=== PATIENT | male | born 1970 | race Caucasian/White ===

== ENCOUNTER 2019-02-25 15:53 | Emergency (ER) | payer OTHER ==
[~2019-02-25] VITALS: Ht 139.7 cm; Wt 104.3 kg
[~2019-02-25 15:53] MED LIST: CYCLOBENZAPRINE5 MG PO; LYRICA75 MG PO; NAPROSYN500 MG PO; TRIAMTERENE-HCTZ1 EA PO
--- OUTSIDE RECORDS SUMMARY | 2019-02-25 15:57 | XMS REPORT ---
Author Author [facility] Address Unknown Phone Unavailable Care Team Providers Care Director Property Name Role Phone Unavailable Unavailable Payers Payer Name Policy Type Policy Number Effective Date Expiration Date Problems This patient has no known problems. Allergies, Adverse Reactions, Alerts Allergy Name Allergy Type Status Severity Reaction(s) Onset Date Inactive Date Treating Clinician Comments No Known Allergies DA Active U 2019-01-25 00:00:00 No Known Allergies DA Active U 2018-10-08 00:00:00 No Known Allergies DA Active U 2018-04-19 00:00:00 No Known Allergies DA Active U 2018-01-21 00:00:00 No Known Allergies DA Active U 2017-09-16 00:00:00 Medications This patient has no known medications. Results Test Description Test Time Test Comments Text Results Atomic Results Result Comments SURGICAL SPECIMENS 2019-02-02 07:51:00 RUN DATE: 02/02/19 [facility] *LIVE* PAGE 1 RUN TIME: 750 Specimen Inquiry RUN USER: INTERFACE PATIENT: SEBAS LUNA LOC: GURU U #: [id number] AGE/SX: 48/M ROOM: [facility] RE01/25/19REG DR: Nacho Feng MD : 71 BED: 1 DIS: STATUS: ADM IN TLOC: SPEC #: [id number] RECD: 01/28/19 STATUS: ROSA NASSAR #: [id number] ODALYS: 01/28/[address] [facility] [address]: Nacho Feng MD ENTERED: 02/01/19 SP TYPE: SURG SPEC OTHR DR: Self Referred Kemar Soni MD, Mallika MD Reyes, Jose R Jr MD Reyhani, Sean A DPM Rosenblatt, Michael MDORDERED: GM LEVEL 4 CODES: [id number] - EXTREMITY, NOS COPIES TO: Self Referred Kemar Soni MD [address] [facility] [address] [place] [address] Debra Haider MD [address] [facility] [place] [address] Kyaw Cruz Jr, MD [address] [facility] [place], [place] [address] Dieter Jeffery [facility] [address] [facility], [address] [address] [email or web address] Stevie Wood MD [address] [place] [address] Nacho Feng MD [address] [place] [address] CONTINUED ON NEXT PAGE RUN DATE: 02/02/19 [facility] *LIVE* PAGE 2 RUN TIME: 0751 Specimen Inquiry RUN USER: INTERFACE SPEC #: [id number] PATIENT: SEBAS LUNA #[id number] (Continued)------ PROCEDURES: GM LEVEL 4 (Incomplete) TISSUES: 1. EXTREMITY, NOS - Extremity, left below knee, amputation FINAL DIAGNOSIS Extremity, left below knee, amputation: Ulceration with necrosis, mixed inflammation; atherosclerotic changes; margins appear viable. GROSS AND MICROSCOPIC GROSS EXAMINATION: Received fresh labeled left below the knee amputation is a 4 cm above the ankle amputation of the left foot. The foot measures 15 x 10 x 10 cm. The lateral and medial portions of the foot shows ulceration, the entire foot is swollen with thickened indurated skin. 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 MICROSCOPIC EXAMINATION: Sections of the amputated lower leg and foot reveal areas of necrosis with ulceration of the skin. The vessels show atherosclerotic changes. The skin and soft tissue at the margin appears viable. There is hyperkeratosis of the squamous epithelium. No acute inflammation is identified within the bone marrow at the margin. POST-OP DIAGNOSIS Osteomyelitis PRE-OP DIAGNOSIS Osteomyelitis- Signed SIGNATURE ON FILE Timmy Gomes Shaina MOREL 02/02/19 0751 END OF REPORT AG HEPATITIS B SURFACE 2019-01-29 11:09:00 AG HEPATITIS B SURFACE (test code=HBSAG) NON REACTIVE INDEX NonReactive AB HEPATITIS B [id number] 08:10:00* Test Item Value Reference Range Comments AB HEPATITIS B SURFACE (test code=HBSAB) < 3.1 mIU/mL Immunity>9.9 Status of Immunity Anti-HBs Level Inconsistent with Immunity 0.0 - 9.9Consistent with Immunity >9.9Performed At: [facility] [address] [place], [place] [id number] Jcarlos Marcum MD Ph:[phone] AB HEPATITIS [id number] 08:10:00* Test Item Value Reference Range Comments AB HEPATITIS C (test code=HCVAB) NON REACTIVE INDEX NON REACT. AB HIV 1 08:10:00* Test Item Value Reference Range Comments AB HIV 1 2 (test code=PXM89FE) NONREACTIVE INDEX NONREACTIVE BASIC METABOLIC [id number] 07:33:00* Test Item Value Reference Range Comments SODIUM (test code=NA) 140 mEq/L 134-147 POTASSIUM (test code=K) 3.8 mEq/L 3.4-5.0 CHLORIDE (test code=CL) 105 mEq/L 100-108 CARBON DIOXIDE (test code=CO2) 30 mEq/L 21-33 ANION GAP (test code=GAP) 9 0-20 GLUCOSE (test code=GLU) 95 mg/dL 70-110 BLOOD UREA NITROGEN (test code=BUN) 18 mg/dL 7-18 GLOMERULAR FILTRATION RATE (test code=GFR) 144.4 95-105 Units of measure=ml/min/1.73 m2 CREATININE (test code=CREAT) 0.6 mg/dL 0.6-1.3 CALCIUM (test code=CA) 8.5 mg/dL 8.0-10.5 CBC W/AUTO [id number] 07:19:00* Test Item Value Reference Range Comments WHITE BLOOD CELL (test code=WBC) 8.80 x10 3/uL 4.5-11.0 RED BLOOD CELL (test code=RBC) 3.56 x10 6/uL 4.00-5.60 HEMOGLOBIN (test code=HGB) 9.1 g/dL 12.5-16.9 HEMATOCRIT (test code=HCT) 30.6 % 37.5-50.7 MEAN CELL VOLUME (test code=MCV) 86.0 fL 81.0-99.0 MEAN CELL HGB (test code=MCH) 25.6 pg 27.0-33.0 MEAN CELL HGB CONCETRATION (test code=MCHC) 29.7 g/dL 33.0-37.0 RED CELL DISTRIBUTION WIDTH CV (test code=RDW) 15.6 % 11.5-14.5 RED CELL DISTRIBUTION WIDTH SD (test code=RDW-SD) 49.3 fL 37.0-54.0 PLATELET COUNT (test code=PLT) 234 x10 3/uL 150-400 MEAN PLATELET VOLUME (test code=MPV) 11.0 fL 7.0-9.0 NEUTROPHIL % (test code=NT%) 55.0 % 56.0-77.0 IMMATURE GRANULOCYTE % (test code=IG%) 0.2 % 0.0-2.0 LYMPHOCYTE % (test code=LY%) 27.7 % 14.0-32.0 MONOCYTE % (test code=MO%) 12.7 % 4.8-9.0 EOSINOPHIL % (test code=EO%) 3.8 % 0.3-3.7 BASOPHIL % (test code=BA%) 0.6 % 0.0-2.0 NUCLEATED RBC % (test code=NRBC%) 0.0 % 0-0 NEUTROPHIL # (test code=NT#) 4.84 x10 3/uL 2.0-7.6 IMMATURE GRANULOCYTE # (test code=IG#) 0.02 x10 3/uL 0.00-0.03 LYMPHOCYTE # (test code=LY#) 2.44 x10 3/uL 1.0-3.8 MONOCYTE # (test code=MO#) 1.12 x10 3/uL 0.1-0.8 EOSINOPHIL # (test code=EO#) 0.33 x10 3/uL 0.0-0.2 BASOPHIL # (test code=BA#) 0.05 x10 3/uL 0.0-0.2 NUCLEATED RBC # (test code=NRBC#) 0.00 x10 3/uL 0.0-0.1 MANUAL DIFF REQUIRED (test code=MDIFF) NO AB HEPATITIS B [id number] 20:19:00* Test Item Value Reference Range Comments AB HEPATITIS B SURFACE (test code=HBSAB) AB HEPATITIS [id number] 20:19:00* Test Item Value Reference Range Comments AB HEPATITIS C (test code=HCVAB) NON REACTIVE INDEX NON REACT. AB HIV 1 20:19:00* Test Item Value Reference Range Comments AB HIV 1 2 (test code=LMF17PW) NONREACTIVE INDEX NONREACTIVE AB HEPATITIS B [id number] 17:50:00* Test Item Value Reference Range Comments AB HEPATITIS B SURFACE (test code=HBSAB) AB HEPATITIS [id number] 17:50:00* Test Item Value Reference Range Comments AB HEPATITIS C (test code=HCVAB) NON REACTIVE INDEX NON REACT. AB HIV 1 17:50:00* Test Item Value Reference Range Comments AB HIV 1 2 (test code=ARO59YK) INDEX NONREACTIVE - XR CHEST 1 [id number] 17:26:00 FAX: Kemar Cordova MD [phone] [place]: St: ADM FAX: Nacho Perry MD [phone] Name: SEBAS LUNA [facility] : 1970 Age/S: 48/M [address] [place] [address] Unit #: [id number] Loc: G.[address] [place] [address] Phys: Kemar Soni MD Acct: [id number] Dis Date: Status: ADM IN PHONE #: [phone] Exam Date: 01/27/2019 1725 FAX #: [phone] Reason: line EXAMS: CPT CODE: [id number] XR CHEST 1 V 62068 EXAM: XR CHEST 1 VIEW DATE: 01/27/2019 4:28 PM : 1970; Age: 48 years y/o Male INDICATION: line COMPARISON: January 27, 2019 at 941 TECHNIQUE: AP chest. IMPRESSION: Lines, tubes and hardware: Right IJ line with tip overlying lower SVC. Heart, mediastinum and lungs: The heart size is normal for technique. The mediastinal contours are normal. Pulmonary vascularity is normal. Minimal right basilar atelectasis. SL: [id number] at 1726 Reported and signed by: Juan David Yap D.O. CC: Kemar Soni MD; Nacho Feng MD Technologist: RT Vik(R) Trnscrd Date/Time/By: 01/27/2019 (1725) : By: [email or web address] Orig Print D/T: S: 01/27/2019 (6461) PAGE 1 Signed Report - XR CHEST 1 [id number] 11:08:00 FAX: Kemar Cordova MD [phone] [place]: St: ADM FAX: Nacho Perry MD [phone] Name: SEBAS LUNA [facility] : 1970 Age/S: 48/M [address] [place] [address] Unit #: [id number] Loc: G.55[address] [facility] [place] [address] Phys: Kemar Soni MD Acct: [id number] Dis Date: Status: ADM IN PHONE #: [phone] Exam Date: 01/27/2019 1059 FAX #: [phone] Reason: MONING PROCEDURE EXAMS: CPT CODE: [id number] XR CHEST 1 V 27763 CHEST 1 VIEW: 01/27/2019 COMPARISON: October 11, 2018 CLINICAL HISTORY: MONING PROCEDURE, OSTEOMYELITIS FI NDINGS: The cardiovascular silhouette is normal in size. There is mild elevation of the right hemidiaphragm. Minor right basilar discoid a telectasis is present. Lungs are otherwise clear. No evidence of pneumothorax. IMPRESSION: Mildly elevated rig ht hemidiaphragm with mild right basilar discoid atelectasis. * * at 1108 Reported and signed by: Solitario Lechuga M.D. CC: Agnes Soni MD; Nacho Feng MD Technologist: RT Bob(R)R Trnscrd Date/Time/By: 01/27/2019 (11 08) : By: [email or web address] Orig Print D/T: S: 01/27/2019 (1111) PAGE 1 Signed Report - XR ANKLE 3 + V [id number] 08:33:00 FAX: Dieter Barba DPM [phone] [place]: St: ADM FAX: Nacho Perry MD [phone] Name: SEBAS LUNA [facility] : 1970 Age/S: 48/M [address] [place] [address] Unit #: [id number] Loc: G.55[address] [facility] [place] [address] Phys: Dieter Jeffery Acct: [id number] Dis Date: Status: ADM IN PHONE #: [phone] Exam Date: 01/26/20191952 FAX #: [phone] Reason: plan for surgery EXAMS: CPT CODE: [id number] XR ANKLE 3 + V LT [address]94 PROCEDURE: Right foot 3 views, left foot 2 views, left ankle 3 views INDICATION: Osteomyelitis COMPARISON: Left foot radiographs of 10/08/2018. MRI of 12/10/2018. FINDINGS: RIGH T: 3 views of the right foot were obtained. Positioning and technique are suboptimal. The soft tissues are diffusely edematous. No subcutaneous gas or radiopaque foreign material. Chronic deformity base of the fifth metata rsal which is subluxed laterally relative to the cuboid. The cortical shannon in of the articular surfaces is indistinct. Deformity of the caudal aspect of the distal cuboid with indistinct ossifications extending into the adj acent soft tissues. No other gross bone destructive changes. There are chr onic deformities of the mid and hindfoot. LEFT: 2 views of t he left foot were obtained. A lateral view is not available. Positioning a nd technique are limited. Soft tissues are diffusely edematous. Soft tissu e defect with overlying bandage material lateral foot and ankle. Plantar t issues not adequately assessed in this projection. Previous resection vers us resorption of the proximal fifth metatarsal. There are bone destructive changes of the fourth metatarsal at the tarsometatarsal junction. The adj acent cuboid is indistinct as well. There are chronic deformities of the m id foot with chronic deformity of the mid tarsal articulation and st randing indistinct margins. LEFT: 3 views of the left ankle were o btained. Positioning and technique are limited. Lateral view is not availa ble. The soft tissues are diffusely edematous. No subcutaneous gas. Large soft tissue defect in the lateral foot and ankle. Bone destructive changes of the mid tarsus redemonstrated. There are erosive changes in the ankle joint with indistinct bone destruction of the distal tibia and medial talu s. Less pronounced changes in the distal fibula and lateral talus. IMPRESSION: 1. RIGHT: Chronic deformities of the mid and hindf oot. Remodeling of the fifth tarsometatarsal junction with indistinct co rtical margins. Chronic active osteomyelitis not excluded. 2. LE FT: Large ulcer lateral foot and ankle. Radiographic findings compatible with osteomyelitis of the lateral tarsometatarsal junction. Chronic justice tructive changes in the mid tarsus with differential of chronic septic a rthritis and neuropathic joint. Findings compatible PAGE 1 Signed Report (CONTINUED) FAX: Dieter Barba DPM [phone] [place]: St: ADM FAX: Nacho Perry MD [phone] Name: SEBAS LUNA [place] : 1970 Age/S: 48/M [address] [place] [address] U nit #: [id number] Loc: [place] [address] Phys: Dieter Jeffery DPM Acct: [id number] Dis Date: Status: ADM IN P REMA #: [phone] Exam Date: 01/26/20191952 FA X #: [phone] Reason: plan for surgery EXAMS: CPT CODE: [id number] XR ANKLE 3 + V LT [address] <Continued> with septic arthritis with contiguous osteomyelitis in the ankle. SL: [id number] at 0833 Reported and signed by: Tray Quinones M.D. CC: Dieter Jeffery DPM; Nacho Feng MD Technologist: Suzette Paul, RT(R); Kyaw Winter RT(R) Trnorrd Date/Time/By: 01/27/2019 (0833) : By: ValerioKWL Orig Print D/T: S: (0837) PAGE 2 Signed Rep ort - XR FOOT 3 + V [id number] 08:33:00 FAX: Dieter Barba DPM [phone] [place]: St: ADM FAX: Nacho Perry MD [phone] Name: SEBAS LUNA : 1970 Age/S: 48/M [address] [place] [address] Unit #: [id number] Loc: [address] [address] Phys: Nacho Feng MD Acct: [id number] Dis Date: Status: ADM IN PHONE #: [phone] Exam Date: 01/26/20191952 FAX #: [phone] Reason: plan for surgery EXAMS: CPT CODE: [id number] XR FOOT 3 + [place] [address] PROCEDURE: Right foot 3 views, left foot 2 views, left ankle 3 views INDICATION: Osteomyelitis COMPARISON: Left foot radiographs of 10/08/2018. MRI of 12/10/2018. FINDINGS: RIGH T: 3 views of the right foot were obtained. Positioning and technique are suboptimal. The soft tissues are diffusely edematous. No subcutaneous gas or radiopaque foreign material. Chronic deformity base of the fifth metata rsal which is subluxed laterally relative to the cuboid. The cortical shannon in of the articular surfaces is indistinct. Deformity of the caudal aspect of the distal cuboid with indistinct ossifications extending into the adj acent soft tissues. No other gross bone destructive changes. There are chr onic deformities of the mid and hindfoot. LEFT: 2 views of t he left foot were obtained. A lateral view is not available. Positioning a nd technique are limited. Soft tissues are diffusely edematous. Soft tissu e defect with overlying bandage material lateral foot and ankle. Plantar t issues not adequately assessed in this projection. Previous resection vers us resorption of the proximal fifth metatarsal. There are bone destructive changes of the fourth metatarsal at the tarsometatarsal junction. The adj acent cuboid is indistinct as well. There are chronic deformities of the m id foot with chronic deformity of the mid tarsal articulation and st randing indistinct margins. LEFT: 3 views of the left ankle were o btained. Positioning and technique are limited. Lateral view is not availa ble. The soft tissues are diffusely edematous. No subcutaneous gas. Large soft tissue defect in the lateral foot and ankle. Bone destructive changes of the mid tarsus redemonstrated. There are erosive changes in the ankle joint with indistinct bone destruction of the distal tibia and medial talu s. Less pronounced changes in the distal fibula and lateral talus. IMPRESSION: 1. RIGHT: Chronic deformities of the mid and hindf oot. Remodeling of the fifth tarsometatarsal junction with indistinct co rtical margins. Chronic active osteomyelitis not excluded. 2. LE FT: Large ulcer lateral foot and ankle. Radiographic findings compatible with osteomyelitis of the lateral tarsometatarsal junction. Chronic justice tructive changes in the mid tarsus with differential of chronic septic a rthritis and neuropathic joint. Findings compatible PAGE 1 Signed Report (CONTINUED) FAX: Dieter Barba DPM [phone] [place]: St: ADM FAX: Nacho Perry MD Name: SEBAS LUNA [facility] : 1970 Age/S: 48/M [address] [place] [address] nit #: [id number] Loc: G.5511 [place] [address] Phys: Nacho Feng MD Acct: [id number] Dis Date: Status: ADM IN P REMA #: [phone] Exam Date: 01/26/20191952 FA X #: [phone] Reason: plan for surgery EXAMS: CPT CODE: [id number] XR FOOT 3 + [place] [address] <Continued> with septic arthritis with contiguous osteomyelitis in the ankle. SL: [id number] at 0833 Reported and signed by: Tray Quinones M.D. CC: Dieter Jeffery DPM; Nacho Feng MD Technologist: Suzette Paul RT(R); Kyaw Winter RT(R) Trnorrd Date/Time/By: 01/27/2019 (0833) : By: Rick Orig Print D/T: S: (0837) PAGE 2 Signed Rep ort PROTHROMBIN [id number] 05:12:00* Test Item Value Reference Range Comments PROTHROMBIN TIME PATIENT (test code=PTP) 13.2 SECONDS 9.3-12.9 INTERNATIONAL NORMAL RATIO (test code=INR) 1.2 0.8-1.2 TARGET INR BY INDICATION Indication INR1. Prophylaxis of venous thrombosis 2.0 - 3.0 (orthopedic surgery), Prophylaxis of venous thrombosis (other than high-risk surgery), Treatment of Deep Vein Thrombosis/Pulmonary Embolism, Prevention of systemic embolism - Tissue heart valves, Acute Myocardial Infarction (to prevent systemic embolism), Valvular heart disease, Atrial Fibrillation, Bileaflet mechanical valve in aortic position.2. Mechanical prosthetic valves (high risk), 2.5 - 3.5 Presence of Lupus Anticoagulant or Antiphospholipid Antibodies, Prevention of systemic embolism - Acute Myocardial Infarction (to prevent recurrent infarct). THROMBOPLASTIN TIME [id number] 05:12:00* Test Item Value Reference Range Comments THROMBOPLASTIN TIME PARTIAL (test code=PTT) 20.5 Seconds 25.0-39.5 Therapeutic Range: 50.4 - 88.3 Seconds Effective 07/27/2018 BASIC METABOLIC [id number] 21:51:00* Test Item Value Reference Range Comments SODIUM (test code=NA) 137 mEq/L 134-147 POTASSIUM (test code=K) 4.0 mEq/L 3.4-5.0 CHLORIDE (test code=CL) 104 mEq/L 100-108 CARBON DIOXIDE (test code=CO2) 29 mEq/L 21-33 ANION GAP (test code=GAP) 8 0-20 GLUCOSE (test code=GLU) 103 mg/dL 70-110 BLOOD UREA NITROGEN (test code=BUN) 24 mg/dL 7-18 GLOMERULAR FILTRATION RATE (test code=GFR) 120.9 95-105 Units of measure=ml/min/1.73 m2 CREATININE (test code=CREAT) 0.7 mg/dL 0.6-1.3 CALCIUM (test code=CA) 9.3 mg/dL 8.0-10.5 CBC W/AUTO [id number] 20:54:00* Test Item Value Reference Range Comments WHITE BLOOD CELL (test code=WBC) 9.44 x10 3/uL 4.5-11.0 RED BLOOD CELL (test code=RBC) 5.08 x10 6/uL 4.00-5.60 HEMOGLOBIN (test code=HGB) 13.1 g/dL 12.5-16.9 HEMATOCRIT (test code=HCT) 43.0 % 37.5-50.7 MEAN CELL VOLUME (test code=MCV) 84.6 fL 81.0-99.0 MEAN CELL HGB (test code=MCH) 25.8 pg 27.0-33.0 MEAN CELL HGB CONCETRATION (test code=MCHC) 30.5 g/dL 33.0-37.0 RED CELL DISTRIBUTION WIDTH CV (test code=RDW) 16.3 % 11.5-14.5 RED CELL DISTRIBUTION WIDTH SD (test code=RDW-SD) 50.0 fL 37.0-54.0 PLATELET COUNT (test code=PLT) 333 x10 3/uL 150-400 MEAN PLATELET VOLUME (test code=MPV) 11.1 fL 7.0-9.0 NEUTROPHIL % (test code=NT%) 60.4 % 56.0-77.0 IMMATURE GRANULOCYTE % (test code=IG%) 0.2 % 0.0-2.0 LYMPHOCYTE % (test code=LY%) 27.5 % 14.0-32.0 MONOCYTE % (test code=MO%) 7.1 % 4.8-9.0 EOSINOPHIL % (test code=EO%) 4.4 % 0.3-3.7 BASOPHIL % (test code=BA%) 0.4 % 0.0-2.0 NUCLEATED RBC % (test code=NRBC%) 0.0 % 0-0 NEUTROPHIL # (test code=NT#) 5.69 x10 3/uL 2.0-7.6 IMMATURE GRANULOCYTE # (test code=IG#) 0.02 x10 3/uL 0.00-0.03 LYMPHOCYTE # (test code=LY#) 2.60 x10 3/uL 1.0-3.8 MONOCYTE # (test code=MO#) 0.67 x10 3/uL 0.1-0.8 EOSINOPHIL # (test code=EO#) 0.42 x10 3/uL 0.0-0.2 BASOPHIL # (test code=BA#) 0.04 x10 3/uL 0.0-0.2 NUCLEATED RBC # (test code=NRBC#) 0.00 x10 3/uL 0.0-0.1 MANUAL DIFF REQUIRED (test code=MDIFF) NO - MRI LOW EXT W WO CONT [id number] 12:25:00 FAX: Eliu Carrera MD [phone] [place]: St: REG FAX: Hernando Nacho Feng MD [phone] Name: SEBAS LUNA [facility] : 1970 Age/S: 48/M [address] [place] [address] Unit #: [id number] Loc: [place] [address] Phys: Eliu Carrera MD Acct: [id number] Dis Date: Status: REG CLI PHONE #: [phone] Exam Date: 12/10/2018 0859 FAX #: [phone] Reason: LEFT FOOT OSTEOMYULITIS EXAMS: CPT CODE: [id number] [place] [address] Patient: SEBAS LUNA. : 1970; Age: 48 years; nder: Male. MR: [id number]. Ordering physician: Eliu Carrera MD. MRI LEFT FOOT WITH AND WITHOUT INTRAVENOUS CONTRAST: MA STORY: Left foot osteomyelitis. COMPARISON: MRI left foot 9. FINDINGS: Multiplanar, multisequence MRI of left foot was perfo rmed before and after intravenous administration of 23 mL of gadolinium based contrast Dotarem. Again noted is a markably large lateral to lateral plantar midfoot soft tissue ulcer with severe soft tissue ind uration, edema and enhancement compatible with marked cellulitis. Multiple foci of signal loss noted along the plantar aspect of soft tissue ulcer/c ellulitis suspicious for retained surgical material versus soft tissue emphysema. Again noted is absence of proximal half of 5th metat arsal, either previously resected versus destroyed secondary to osteomyeli tis. There is stable persistent osteomyelitis of distal half of 5th metatarsal shaft with sparing of 5th metatarsal head. Stable persistent osteomyelitis of proximal half of 4th metatarsal. Stable destructive patiño ge of 4th metatarsal base. Stable less prominent osteomyelitis of 2nd and 3rd metatarsal bases also noted. Destructive osteomyelitis of the cuboid also again noted. Marked diffuse patchy bone marrow edema and enhancement of all 3 cuneiforms, navicular, partially imaged anterior process of calc aneus and calcaneal neck, talar head and neck and tibial plafond noted com patible with persistent stable osteomyelitis. Tibiotalar joint effusion a nd enhancement noted compatible with septic arthritis. Subtalar joint septic arthritis also suspected, unchanged. There is marked dif fuse foot cellulitis. No drainable abscess. IMPRESSION: 1. Markably large lateral to plantar lateral midfoot soft tissue ulcer with marked surrounding cellulitis. Cellulitis of entire left foot not ed without drainable abscess. Foci of signal loss along plantar aspect of soft tissue ulcer/cellulitis suspicious for retained PAGE 1 Signed Report (CONTINUED) FAX: Eliu Carrera MD [phone] [place]: St: REG FAX: Nacho Perry MD [phone] Name: SEBAS LUNA [facility] : 1970 Age/S: 48/M [address] [place] [address] Unit #: [id number] Loc: [place] [address] P hys: Eliu Carrera MD Acct: [id number] Dis Date: Status: REG CLI PHONE #: [phone] Exam Date: 12/10/2018 0859 FAX #: [phone] Reason: LEFT FOOT OSTEOMYULITIS EXAMS: CPT CODE: [id number] [place] [address] <Continued> surgical material versus soft tissue emphysema. 2. Stable marked multifocal midfoot osteomyelitis as described. Tibiotalar septic arthritis. Subtalar joint septic arthritis also suspected, unchanged. Please see above discussion for further details. SL: SL-H at 1315 Reported and signed by: Gautam Hutton M.D. CC: Eliu Carrera MD; Nacho Feng MD Technologist: RT Manjeet(Andre)(MR) Trnscrd Date/Time/By: 12/10/2018 (6962) : By: Tatum[facility]atum[facility] Orig Print D/T: S: 12/10/2018 (3379) PAGE 2 Signed Report - SP FLUOROSCOPY 0-60 [id number] 15:05:00 FAX: Kahlil Rader MD [phone] [place]: St: ADM FAX: Nacho Perry MD [phone] Name: SEBAS LUNA [facility] : 1970 Age/S: 48/M [address] [place] [address] Unit #: [id number] Loc: G.5533 [facility] [address] Phys: Kahlil Erazo MD Acct: [id number] Dis Date: Status: ADM IN PHONE #: [phone] Exam Date: 10/18/2018 1035 FAX #: [phone] Reason: PICC PLACEMENT EXAMS: CPT CODE: [id number] SP FLUOROSCOPY 0-60 MIN 32131 Study: - SP FLUOROSCOPY 0-60 MIN 10/18/2018 9:28 AM Patient Name: SEBAS LUNA MR: [id number] DATE: 10/18/2018 9:28 AM : 1970; Age: 48 years y/o Male Ordering Physician: Kahlil bourgeois MD Clinical Indication: Sepsis PICC PLACEMENT In traprocedural fluoroscopy was provided by the Department of Radiology. Pr ocedure was performed by PICC nurse. 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 Fluoroscopy time: 0.8 minute Dose 89 mGy SL: CLR [id number] at 1505 Reported and signed by: Juan David Yap D.O. CC: Kahlil Erazo MD; Nacho Feng MD Technologist: Zoey Bowers RT(R) Trnscrd Date/Time/By: 10/18/2018 (4972) : By: alessio [email or web address] Orig Print D/T: S: 10/18/2018 (0062) PAGE 1 Signed Report [id number] 05:00:00* Test Item Value Reference Range Comments CREATININE (test code=CREAT) 0.6 mg/dL 0.6-1.3 VANCOMYCIN [id number] 17:50:00* Test Item Value Reference Range Comments VANCOMYCIN TROUGH (test code=VANCT) 14.3 mcg/mL 10.0-20.0 10-15 mcg/mL - Cellulitis, Urinary Tract Infection. 15-20 mcg/mL - Bacteremia, Infective Endocarditis, Meningitis, Osteomyelitis, Pneumonia, Severe Skin/Soft- Tissue Infection, Spinal Abscess. COMMENTS: DRAW 30MIN BEFORE 1600 DOSE ON 10/15, HOLD >21 PHARMACY DOSINGLACTIC [id number] 12:39:00* Test Item Value Reference Range Comments LACTIC ACID (test code=LACT) 1.5 mmol/L 0.4-1.9 VANCOMYCIN [id number] 14:35:00* Test Item Value Reference Range Comments VANCOMYCIN TROUGH (test code=VANCT) 21.7 mcg/mL 10.0-20.0 10-15 mcg/mL - Cellulitis, Urinary Tract Infection. 15-20 mcg/mL - Bacteremia, Infective Endocarditis, Meningitis, Osteomyelitis, Pneumonia, Severe Skin/Soft- Tissue Infection, Spinal Abscess. BASIC METABOLIC [id number] 14:31:00* Test Item Value Reference Range Comments SODIUM (test code=NA) 138 mEq/L 134-147 POTASSIUM (test code=K) 4.4 mEq/L 3.4-5.0 CHLORIDE (test code=CL) 101 mEq/L 100-108 CARBON DIOXIDE (test code=CO2) 33 mEq/L 21-33 ANION GAP (test code=GAP) 8 0-20 GLUCOSE (test code=GLU) 129 mg/dL 70-110 BLOOD UREA NITROGEN (test code=BUN) 17 mg/dL 7-18 GLOMERULAR FILTRATION RATE (test code=GFR) 178.2 95-105 Units of measure=ml/min/1.73 m2 CREATININE (test code=CREAT) 0.5 mg/dL 0.6-1.3 CALCIUM (test code=CA) 8.4 mg/dL 8.0-10.5 [id number] 14:31:00* Test Item Value Reference Range Comments PHOSPHOROUS (test code=PHOS) 3.4 mg/dL 2.5-4.9 [id number] 14:31:00* Test Item Value Reference Range Comments MAGNESIUM (test code=MAG) 2.00 mg/dL 1.8-2.4 CBC W/AUTO [id number] 14:17:00* Test Item Value Reference Range Comments WHITE BLOOD CELL (test code=WBC) 8.03 x10 3/uL 4.5-11.0 RED BLOOD CELL (test code=RBC) 3.41 x10 6/uL 4.00-5.60 HEMOGLOBIN (test code=HGB) 8.5 g/dL 12.5-16.9 HEMATOCRIT (test code=HCT) 28.4 % 37.5-50.7 MEAN CELL VOLUME (test code=MCV) 83.3 fL 81.0-99.0 MEAN CELL HGB (test code=MCH) 24.9 pg 27.0-33.0 MEAN CELL HGB CONCETRATION (test code=MCHC) 29.9 g/dL 33.0-37.0 RED CELL DISTRIBUTION WIDTH CV (test code=RDW) 18.8 % 11.5-14.5 RED CELL DISTRIBUTION WIDTH SD (test code=RDW-SD) 55.9 fL 37.0-54.0 PLATELET COUNT (test code=PLT) 528 x10 3/uL 150-400 MEAN PLATELET VOLUME (test code=MPV) 9.8 fL 7.0-9.0 NEUTROPHIL % (test code=NT%) 60.0 % 56.0-77.0 IMMATURE GRANULOCYTE % (test code=IG%) 1.0 % 0.0-2.0 LYMPHOCYTE % (test code=LY%) 29.0 % 14.0-32.0 MONOCYTE % (test code=MO%) 8.1 % 4.8-9.0 EOSINOPHIL % (test code=EO%) 1.7 % 0.3-3.7 BASOPHIL % (test code=BA%) 0.2 % 0.0-2.0 NUCLEATED RBC % (test code=NRBC%) 0.0 % 0-0 NEUTROPHIL # (test code=NT#) 4.81 x10 3/uL 2.0-7.6 IMMATURE GRANULOCYTE # (test code=IG#) 0.08 x10 3/uL 0.00-0.03 LYMPHOCYTE # (test code=LY#) 2.33 x10 3/uL 1.0-3.8 MONOCYTE # (test code=MO#) 0.65 x10 3/uL 0.1-0.8 EOSINOPHIL # (test code=EO#) 0.14 x10 3/uL 0.0-0.2 BASOPHIL # (test code=BA#) 0.02 x10 3/uL 0.0-0.2 NUCLEATED RBC # (test code=NRBC#) 0.00 x10 3/uL 0.0-0.1 MANUAL DIFF REQUIRED (test code=MDIFF) NO CBC W/AUTO [id number] 07:05:00* Test Item Value Reference Range Comments WHITE BLOOD CELL (test code=WBC) 9.49 x10 3/uL 4.5-11.0 RED BLOOD CELL (test code=RBC) 3.02 x10 6/uL 4.00-5.60 HEMOGLOBIN (test code=HGB) 7.6 g/dL 12.5-16.9 HEMATOCRIT (test code=HCT) 24.7 % 37.5-50.7 MEAN CELL VOLUME (test code=MCV) 81.8 fL 81.0-99.0 MEAN CELL HGB (test code=MCH) 25.2 pg 27.0-33.0 MEAN CELL HGB CONCETRATION (test code=MCHC) 30.8 g/dL 33.0-37.0 RED CELL DISTRIBUTION WIDTH CV (test code=RDW) 18.6 % 11.5-14.5 RED CELL DISTRIBUTION WIDTH SD (test code=RDW-SD) 53.7 fL 37.0-54.0 PLATELET COUNT (test code=PLT) 466 x10 3/uL 150-400 MEAN PLATELET VOLUME (test code=MPV) 10.2 fL 7.0-9.0 NEUTROPHIL % (test code=NT%) 84.1 % 56.0-77.0 IMMATURE GRANULOCYTE % (test code=IG%) 0.9 % 0.0-2.0 LYMPHOCYTE % (test code=LY%) 11.8 % 14.0-32.0 MONOCYTE % (test code=MO%) 3.1 % 4.8-9.0 EOSINOPHIL % (test code=EO%) 0.0 % 0.3-3.7 BASOPHIL % (test code=BA%) 0.1 % 0.0-2.0 NUCLEATED RBC % (test code=NRBC%) 0.0 % 0-0 NEUTROPHIL # (test code=NT#) 7.98 x10 3/uL 2.0-7.6 IMMATURE GRANULOCYTE # (test code=IG#) 0.09 x10 3/uL 0.00-0.03 LYMPHOCYTE # (test code=LY#) 1.12 x10 3/uL 1.0-3.8 MONOCYTE # (test code=MO#) 0.29 x10 3/uL 0.1-0.8 EOSINOPHIL # (test code=EO#) 0.00 x10 3/uL 0.0-0.2 BASOPHIL # (test code=BA#) 0.01 x10 3/uL 0.0-0.2 NUCLEATED RBC # (test code=NRBC#) 0.00 x10 3/uL 0.0-0.1 MANUAL DIFF REQUIRED (test code=MDIFF) NO BASIC METABOLIC [id number] 06:56:00* Test Item Value Reference Range Comments SODIUM (test code=NA) 134 mEq/L 134-147 POTASSIUM (test code=K) 4.2 mEq/L 3.4-5.0 CHLORIDE (test code=CL) 99 mEq/L 100-108 CARBON DIOXIDE (test code=CO2) 29 mEq/L 21-33 ANION GAP (test code=GAP) 10 0-20 GLUCOSE (test code=GLU) 122 mg/dL 70-110 BLOOD UREA NITROGEN (test code=BUN) 13 mg/dL 7-18 GLOMERULAR FILTRATION RATE (test code=GFR) 178.2 95-105 Units of measure=ml/min/1.73 m2 CREATININE (test code=CREAT) 0.5 mg/dL 0.6-1.3 CALCIUM (test code=CA) 8.4 mg/dL 8.0-10.5 [id number] 06:56:00* Test Item Value Reference Range Comments PHOSPHOROUS (test code=PHOS) 4.7 mg/dL 2.5-4.9 [id number] 06:56:00* Test Item Value Reference Range Comments MAGNESIUM (test code=MAG) 2.10 mg/dL 1.8-2.4 ARTERIAL BLOOD [id number] 05:30:00* Test Item Value Reference Range Comments ARTERIAL BLOOD GAS PH (test code=PHA) 7.445 7.35-7.45 ARTERIAL BLOOD GAS PCO2 (test code=PCO2A) 42.1 mmHg 35-45 ARTERIAL BLOOD GAS PO2 (test code=PO2A) 103 mmHg 80-100 BICARBONATE TOTAL HCO3 (test code=HCO3) 29.0 mmol/L 22.0-26.0 BASE EXCESS (test code=TANYA) 5.0 mmol/L -4-4 ABG O2 SATURATION (test code=SATA) 98 % 90-100 FIO2 (test code=FIO2A) 40 % ABG DELIVERY (test code=JOSETTE) Vent ABG VENT MODE (test code=MODEA) AC v con ABG VENT RESP RATE (test code=RRA) 14 /MIN ABG TIDAL VOLUME (test code=TVA) 500 ml ABG PEEP (test code=PEEPA) 5 cmH2O Performed by certified chocolate finisher operator at [facility] ABG TEMPERATURE (test code=TEMPA) 97.8 F ABG SITE (test code=SITEA) L Rad PREDICTED AA GRADIENT (test code=AP) 61 PREDICTED PO2 (test code=OP) 174 a/A RATIO (test code=RATIO) 0.44 TCO2 ARTERIAL (test code=TCO2A) 30 A-A GRADIENT (test code=AAGRADE) 132 ARTERIAL BLOOD [id number] 13:04:00* Test Item Value Reference Range Comments ARTERIAL BLOOD GAS PH (test code=PHA) 7.478 7.35-7.45 ARTERIAL BLOOD GAS PCO2 (test code=PCO2A) 41.9 mmHg 35-45 ARTERIAL BLOOD GAS PO2 (test code=PO2A) 137 mmHg 80-100 BICARBONATE TOTAL HCO3 (test code=HCO3) 31.0 mmol/L 22.0-26.0 BASE EXCESS (test code=TANYA) 7.0 mmol/L -4-4 ABG O2 SATURATION (test code=SATA) 99 % 90-100 FIO2 (test code=FIO2A) 50 % ABG DELIVERY (test code=JOSETTE) Vent ABG VENT MODE (test code=MODEA) AC v con ABG VENT RESP RATE (test code=RRA) 14 /MIN ABG TIDAL VOLUME (test code=TVA) 502 ml ABG PEEP (test code=PEEPA) 5 cmH2O Performed by certified chocolate finisher operator at [facility] ABG TEMPERATURE (test code=TEMPA) 98.6 F ABG SITE (test code=SITEA) R Rad PREDICTED AA GRADIENT (test code=AP) 79 PREDICTED PO2 (test code=OP) 227 a/A RATIO (test code=RATIO) 0.45 TCO2 ARTERIAL (test code=TCO2A) 32 A-A GRADIENT (test code=AAGRADE) 169 PROCALCITONIN (PCT)[id number] 12:17:00* Test Item Value Reference Range Comments PROCALCITONIN (PCT) (test code=PROCAL) 2.06 ng/mL 0.00-0.05 PROCALCITONIN (PCT) NORMAL RANGE (ADULT): <0.05 NG/ML. * a concentration <0.5 ng/mL represents a low risk of severe sepsis and/or septic shock.* a concentration >2 ng/mL represents a high risk of severe sepsis and/or septic shock.Nevertheless, concentrations <0.5 ng/mL do not exclude aninfection, on account of localized infections (withoutsystemic signs) which can be associated with such lowconcentrations, or a systemic infection in its initialstages (< 6 hours). Furthermore, increased procalcitonincan occur without infection. PCT concentrations between 0.5and 2.0 ng/mL should be interpreted taking into account thepatient's history. It is recommended to retest PCT within6-24 hours if any concentrations <2 ng/mL are obtained. LACTIC [id number] 08:49:00* Test Item Value Reference Range Comments LACTIC ACID (test code=LACT) 1.2 mmol/L 0.4-1.9 B-TYPE NATRIURETIC [id number] 08:19:00* Test Item Value Reference Range Comments B-TYPE NATRIURETIC PEPTIDE (test code=BNP) 177.4 PG/ML 0-100 CBC W/AUTO [id number] 07:46:00* Test Item Value Reference Range Comments WHITE BLOOD CELL (test code=WBC) 17.89 x10 3/uL 4.5-11.0 RED BLOOD CELL (test code=RBC) 3.69 x10 6/uL 4.00-5.60 HEMOGLOBIN (test code=HGB) 9.4 g/dL 12.5-16.9 HEMATOCRIT (test code=HCT) 30.8 % 37.5-50.7 MEAN CELL VOLUME (test code=MCV) 83.5 fL 81.0-99.0 MEAN CELL HGB (test code=MCH) 25.5 pg 27.0-33.0 MEAN CELL HGB CONCETRATION (test code=MCHC) 30.5 g/dL 33.0-37.0 RED CELL DISTRIBUTION WIDTH CV (test code=RDW) 18.4 % 11.5-14.5 RED CELL DISTRIBUTION WIDTH SD (test code=RDW-SD) 54.4 fL 37.0-54.0 PLATELET COUNT (test code=PLT) 561 x10 3/uL 150-400 MEAN PLATELET VOLUME (test code=MPV) 10.3 fL 7.0-9.0 NEUTROPHIL % (test code=NT%) 78.8 % 56.0-77.0 IMMATURE GRANULOCYTE % (test code=IG%) 3.3 % 0.0-2.0 LYMPHOCYTE % (test code=LY%) 10.7 % 14.0-32.0 MONOCYTE % (test code=MO%) 5.6 % 4.8-9.0 EOSINOPHIL % (test code=EO%) 1.2 % 0.3-3.7 BASOPHIL % (test code=BA%) 0.4 % 0.0-2.0 NUCLEATED RBC % (test code=NRBC%) 0.2 % 0-0 NEUTROPHIL # (test code=NT#) 14.09 x10 3/uL 2.0-7.6 IMMATURE GRANULOCYTE # (test code=IG#) 0.59 x10 3/uL 0.00-0.03 LYMPHOCYTE # (test code=LY#) 1.92 x10 3/uL 1.0-3.8 MONOCYTE # (test code=MO#) 1.00 x10 3/uL 0.1-0.8 EOSINOPHIL # (test code=EO#) 0.22 x10 3/uL 0.0-0.2 BASOPHIL # (test code=BA#) 0.07 x10 3/uL 0.0-0.2 NUCLEATED RBC # (test code=NRBC#) 0.04 x10 3/uL 0.0-0.1 MANUAL DIFF REQUIRED (test code=MDIFF) NO SLIDE REVIEWED, CONSISTENT WITH AUTO DIFF. BASIC METABOLIC [id number] 07:20:00* Test Item Value Reference Range Comments SODIUM (test code=NA) 131 mEq/L 134-147 POTASSIUM (test code=K) 4.6 mEq/L 3.4-5.0 CHLORIDE (test code=CL) 96 mEq/L 100-108 CARBON DIOXIDE (test code=CO2) 30 mEq/L 21-33 ANION GAP (test code=GAP) 10 0-20 GLUCOSE (test code=GLU) 143 mg/dL 70-110 BLOOD UREA NITROGEN (test code=BUN) 10 mg/dL 7-18 GLOMERULAR FILTRATION RATE (test code=GFR) 178.2 95-105 Units of measure=ml/min/1.73 m2 CREATININE (test code=CREAT) 0.5 mg/dL 0.6-1.3 CALCIUM (test code=CA) 8.6 mg/dL 8.0-10.5 [id number] 07:20:00* Test Item Value Reference Range Comments PHOSPHOROUS (test code=PHOS) 4.8 mg/dL 2.5-4.9 [id number] 07:20:00* Test Item Value Reference Range Comments MAGNESIUM (test code=MAG) 1.90 mg/dL 1.8-2.4 [id number] 06:18:00* Test Item Value Reference Range Comments D-DIMER (test code=DDIMER) 5798 ng/mlFEU <=500 THROMBOSIS AND/OR PULMONARY EMBOLISM AND THE CLINICAL CUT- OFF VALUE FOR EXCLUSION (500 ng/mL FEU) OF THESE CONDITIONSIS VALIDATED BY THE GLUE JOINTER OPERATOR OF THE METHOD. A NEGATIVE D-DIMER RESULT WHEN COMBINED WITH A CLINICALASSESSMENT OF LOW PRETEST PROBABILITY HAS BEEN SHOWN TO HAVEA HIGH NEGATIVE PREDICTIVE VALUE OF DVT OR PE. D-DIMER VALUES >500 ng/mL FEU ARE NOT DIAGNOSTIC FOR DVT, PEor DIC WITHOUT OTHER CONFIRMATORY TESTS AND APPROPRIATECLINICAL EUALUATIONS. CBC W/AUTO [id number] 06:06:00* Test Item Value Reference Range Comments WHITE BLOOD CELL (test code=WBC) 17.89 x10 3/uL 4.5-11.0 RED BLOOD CELL (test code=RBC) 3.69 x10 6/uL 4.00-5.60 HEMOGLOBIN (test code=HGB) 9.4 g/dL 12.5-16.9 HEMATOCRIT (test code=HCT) 30.8 % 37.5-50.7 MEAN CELL VOLUME (test code=MCV) 83.5 fL 81.0-99.0 MEAN CELL HGB (test code=MCH) 25.5 pg 27.0-33.0 MEAN CELL HGB CONCETRATION (test code=MCHC) 30.5 g/dL 33.0-37.0 RED CELL DISTRIBUTION WIDTH CV (test code=RDW) 18.4 % 11.5-14.5 RED CELL DISTRIBUTION WIDTH SD (test code=RDW-SD) 54.4 fL 37.0-54.0 PLATELET COUNT (test code=PLT) 561 x10 3/uL 150-400 MEAN PLATELET VOLUME (test code=MPV) 10.3 fL 7.0-9.0 LYMPHOCYTE % (test code=LY%) % 14.0-32.0 MANUAL DIFF REQUIRED (test code=MDIFF) ARTERIAL BLOOD [id number] 05:32:00* Test Item Value Reference Range Comments ARTERIAL BLOOD GAS PH (test code=PHA) 7.322 7.35-7.45 ARTERIAL BLOOD GAS PCO2 (test code=PCO2A) 60.2 mmHg 35-45 ARTERIAL BLOOD GAS PO2 (test code=PO2A) 144 mmHg 80-100 BICARBONATE TOTAL HCO3 (test code=HCO3) 31.1 mmol/L 22.0-26.0 BASE EXCESS (test code=TANYA) 5.0 mmol/L -4-4 ABG O2 SATURATION (test code=SATA) 99 % 90-100 ABG DELIVERY (test code=JOSETTE) Hi-niki Can ABG TEMPERATURE (test code=TEMPA) 99.0 F ABG SITE (test code=SITEA) L Rad TCO2 ARTERIAL (test code=TCO2A) 33 - XR CHEST 1 [id number] 04:28:00 FAX: Adarsh Turner MD [place]: St: ADM FAX: Nacho Perry MD [phone] Name: SEBAS LUAN [facility] : 1970 Age/S: 48/M [address] [place] [address] Unit #: [id number] Loc: .[address] [address] Phys: Adarsh Stinson MD Acct: [id number] Dis Date: Status: ADM IN PHONE #: [phone] Exam Date: 10/11/2018 0420 FAX #: [phone] Reason: RESP DISTRESS EXAMS: CPT CODE: [id number] XR CHEST 1 V 21598 Chest, single view dated 10/11/2018. HISTORY: Respiratory distress. Comparison is made to a prior study dated 10/08/2018. The heart appears enlarged. The cardiac shadow is magnified by AP portable technique and low lung volumes. The mediastinum is otherwise unremarkable. The lungs appear clear. The pulmonary vasculature is normal in caliber. No acute pleural space abnormalities are detected. IMPRESSION: 1. No radiographic evidence of acute cardiopulmonary disease. SL: 131 at 0428 Reported and signed by: Cleveland steinberg M.D. CC: Adarsh Stinson MD; Nacho Feng MD Technologist: RT Conner(R) Trnscrd Date/Time/By: 10/11/2018 (0428) : By: Luis Orig Print D/T : S: 10/11/2018 (4724) PAGE 1 Sig tom Report ARTERIAL BLOOD [id number] 02:17:00* Test Item Value Reference Range Comments ARTERIAL BLOOD GAS PH (test code=PHA) 7.375 7.35-7.45 ARTERIAL BLOOD GAS PCO2 (test code=PCO2A) 46.9 mmHg 35-45 ARTERIAL BLOOD GAS PO2 (test code=PO2A) 62 mmHg 80-100 BICARBONATE TOTAL HCO3 (test code=HCO3) 27.3 mmol/L 22.0-26.0 BASE EXCESS (test code=TANYA) 2.0 mmol/L -4-4 ABG O2 SATURATION (test code=SATA) 90 % 90-100 ABG DELIVERY (test code=JOSETTE) Cannula ABG TEMPERATURE (test code=TEMPA) 99.0 F ABG SITE (test code=SITEA) R Rad TCO2 ARTERIAL (test code=TCO2A) 29 [id number] 22:52:00* Test Item Value Reference Range Comments VANCOMYCIN (test code=VANCO) 11.3 mcg/mL - MRI LOW EXT W WO CONT [id number] 08:14:00 FAX: Kahlil Rader MD [phone] [place]: St: ADM FAX: Nacho Perry MD [phone] Name: SEBAS LUNA [facility] : 1970 Age/S: 48/M [address] [place] [address] Unit #: [id number] Loc: [address] [address] Phys: Kahlil Erazo MD Acct: [id number] Dis Date: Status: ADM IN PHONE #: [phone] Exam Date: 10/09/2018 181 FAX #: [phone] Reason: LEFT FOOT OSTEOMYELITIS EXAMS: CPT CODE: [id number] [place] [address] MRI left hindfoot with and without contrast. INDIC ATION: Left foot osteomyelitis. Left foot ulcer infection. Sepsis. COMPARISON: 10/08/2018 left foot radiographs. 05/27/2018 left foot MRI. TECHNIQUE: MRI of the hindfoot is performed in all 3 planes with T1 and fluid sensitive sequences. 22 mL gadolinium injected intraven ously for the exam. FINDINGS: Motion artifact degrades image quali ty. A large tibiotalar joint effusion is seen either protruding an teriorly versus a joint effusion with a separate anterior ankle organized fluid collection. Low T1-T2 signal artifact in the nondependent portion of the fluid correlates with gas seen on radiographs. The anterior ankle fluid collection measures approximately 6.1 cm transverse, 4.3 cm AP, and 4.4 cm craniocaudal dimension. Mild to moderate T2 hyperintense mild T1 hyperintense signal changes are seen in the distal tibia and fibula w hich were excluded from fejsv-tu-vzat on the prior MRI. New abnormal mode rate to severe T1 hypointense T2 hyperintense marrow signal changes are se en throughout the talus and calcaneus since the prior exam with worsening signal change in the navicular bone and cuboid bone. New abnormal marrow signal changes seen in all 3 cuneiform bones and second and third metatars al bases. Worsening marrow signal changes in the fourth metatarsal. Stab le moderate abnormal signal in the distal fifth metatarsal remnant. The f irst metatarsal bone appears spared. Varus deformity of the mid to hindfoot is now present. 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 Large soft tissue wound in the cuboid area once again seen. The peroneal tendons cannot be seen passed the wound site. Soft tissue gas in the cubo id bone area is suspected. There is synovial enhancement of the tibiotala r joint effusion present. There is also rim enhancement of the anterior a nkle fluid collection. There is contrast enhancement of the abnormal-appe aring bones previously described. Diffuse soft tissue enhancement present . IMPRESSION: 1. Large lateral plantar mid foot wound w ith new and worsening areas of osteomyelitis including the cuboid bone, 3 cuneiform bones, navicular bone, talus, calcaneus, distal tibia and fi bula, and second, third, and fourth metatarsal bones. 2. Large enhancing tibiotalar joint effusion consistent with septic PAGE 1 Signed Report (CONTINUED) FAX: Juan Rader MD [phone] [place]: St: [facility] FAX: Nacho Perry [phone] Name: SEBAS LUNA [facility] : 1970 Age/S: 48/M [address] [place] [address] Unit #: [id number] Loc: G.M[address] [place] [address] Phys: Kahlil Erazo MD Acct: [id number] Dis Date: Status: ADM IN PHONE #: [phone] Exam Date: 10/09/20181816 FAX #: [phone] Reason: LEFT FOOT OSTEOMYELITIS EXAMS: CPT CODE: [id number] [place] [address] <Continued> arthritis. Additionally, a large anterior ankle fluid collection is present which may or may not communicate with the tibiotalar joint effusion. This fluid collection demonstrates gas within and rim enhan cement consistent with abscess. 3. Destructive changes of the midfoot b ones with new varus deformity of the mid to hindfoot. SL: K56-H at 0814 Reported and signed by: Francisco Lynch M.D. CC: Kahlil Erazo MD; Nacho Feng MD Technologist: Noreen Winter RT(MR)(CT) Trnscrd Date/Time/By: 09/13 (813) : By: [email or web address] Orig Print D/T: S: 10/10/2018 (0817) PAGE 2 Signed Report BASIC METABOLIC [id number] 03:58:00* Test Item Value Reference Range Comments SODIUM (test code=NA) 135 mEq/L 134-147 POTASSIUM (test code=K) 4.5 mEq/L 3.4-5.0 CHLORIDE (test code=CL) 102 mEq/L 100-108 CARBON DIOXIDE (test code=CO2) 27 mEq/L 21-33 ANION GAP (test code=GAP) 11 0-20 GLUCOSE (test code=GLU) 100 mg/dL 70-110 BLOOD UREA NITROGEN (test code=BUN) 13 mg/dL 7-18 GLOMERULAR FILTRATION RATE (test code=GFR) 144.4 95-105 Units of measure=ml/min/1.73 m2 CREATININE (test code=CREAT) 0.6 mg/dL 0.6-1.3 CALCIUM (test code=CA) 8.5 mg/dL 8.0-10.5 [id number] 03:58:00* Test Item Value Reference Range Comments PHOSPHOROUS (test code=PHOS) 2.6 mg/dL 2.5-4.9 [id number] 03:58:00* Test Item Value Reference Range Comments MAGNESIUM (test code=MAG) 1.80 mg/dL 1.8-2.4 CBC W/AUTO [id number] 03:38:00* Test Item Value Reference Range Comments WHITE BLOOD CELL (test code=WBC) 12.91 x10 3/uL 4.5-11.0 RED BLOOD CELL (test code=RBC) 2.93 x10 6/uL 4.00-5.60 HEMOGLOBIN (test code=HGB) 7.1 g/dL 12.5-16.9 HEMATOCRIT (test code=HCT) 23.0 % 37.5-50.7 MEAN CELL VOLUME (test code=MCV) 78.5 fL 81.0-99.0 MEAN CELL HGB (test code=MCH) 24.2 pg 27.0-33.0 MEAN CELL HGB CONCETRATION (test code=MCHC) 30.9 g/dL 33.0-37.0 RED CELL DISTRIBUTION WIDTH CV (test code=RDW) 18.1 % 11.5-14.5 RED CELL DISTRIBUTION WIDTH SD (test code=RDW-SD) 50.6 fL 37.0-54.0 PLATELET COUNT (test code=PLT) 418 x10 3/uL 150-400 MEAN PLATELET VOLUME (test code=MPV) 10.4 fL 7.0-9.0 NEUTROPHIL % (test code=NT%) 66.2 % 56.0-77.0 IMMATURE GRANULOCYTE % (test code=IG%) 1.9 % 0.0-2.0 LYMPHOCYTE % (test code=LY%) 20.4 % 14.0-32.0 MONOCYTE % (test code=MO%) 9.0 % 4.8-9.0 EOSINOPHIL % (test code=EO%) 2.2 % 0.3-3.7 BASOPHIL % (test code=BA%) 0.3 % 0.0-2.0 NUCLEATED RBC % (test code=NRBC%) 0.2 % 0-0 NEUTROPHIL # (test code=NT#) 8.54 x10 3/uL 2.0-7.6 IMMATURE GRANULOCYTE # (test code=IG#) 0.25 x10 3/uL 0.00-0.03 LYMPHOCYTE # (test code=LY#) 2.63 x10 3/uL 1.0-3.8 MONOCYTE # (test code=MO#) 1.16 x10 3/uL 0.1-0.8 EOSINOPHIL # (test code=EO#) 0.29 x10 3/uL 0.0-0.2 BASOPHIL # (test code=BA#) 0.04 x10 3/uL 0.0-0.2 NUCLEATED RBC # (test code=NRBC#) 0.02 x10 3/uL 0.0-0.1 MANUAL DIFF REQUIRED (test code=MDIFF) NO [id number] 18:41:00* Test Item Value Reference Range Comments PREALBUMIN (test code=PREALB) 3.2 mg/dL 16.0-40.0 SED RATE [id number] 12:32:00* Test Item Value Reference Range Comments SED RATE WESTERGREN (test code=SEDW) > 140 mm/hr 0-15 ADDED TO BLOOD IN LAB C REACTIVE [id number] 12:29:00* Test Item Value Reference Range Comments C REACTIVE PROTEIN (test code=CRP) 180.0 MG/L 0.0-2.9 COMPREHENSIVE METABOLIC [id number] 10:10:00* Test Item Value Reference Range Comments SODIUM (test code=NA) 136 mEq/L 134-147 POTASSIUM (test code=K) 3.5 mEq/L 3.4-5.0 CHLORIDE (test code=CL) 103 mEq/L 100-108 CARBON DIOXIDE (test code=CO2) 24 mEq/L 21-33 ANION GAP (test code=GAP) 13 0-20 GLUCOSE (test code=GLU) 124 mg/dL 70-110 BLOOD UREA NITROGEN (test code=BUN) 14 mg/dL 7-18 GLOMERULAR FILTRATION RATE (test code=GFR) 120.9 95-105 Units of measure=ml/min/1.73 m2 CREATININE (test code=CREAT) 0.7 mg/dL 0.6-1.3 TOTAL PROTEIN (test code=PROT) 6.3 g/dL 6.4-8.2 ALBUMIN (test code=ALB) 1.50 g/dL 3.4-5.0 CALCIUM (test code=CA) 8.1 mg/dL 8.0-10.5 BILIRUBIN TOTAL (test code=BILT) 0.40 mg/dL 0.0-1.0 SGOT/AST (test code=AST) 78 IUnit/L 15-37 SGPT/ALT (test code=ALT) 99 IUnit/L 15-65 ALKALINE PHOSPHATASE TOTAL (test code=ALKP) 126 IUnit/L 20-125 CBC W/AUTO [id number] 09:56:00* Test Item Value Reference Range Comments WHITE BLOOD CELL (test code=WBC) 13.82 x10 3/uL 4.5-11.0 RED BLOOD CELL (test code=RBC) 3.01 x10 6/uL 4.00-5.60 HEMOGLOBIN (test code=HGB) 7.3 g/dL 12.5-16.9 HEMATOCRIT (test code=HCT) 23.6 % 37.5-50.7 MEAN CELL VOLUME (test code=MCV) 78.4 fL 81.0-99.0 MEAN CELL HGB (test code=MCH) 24.3 pg 27.0-33.0 MEAN CELL HGB CONCETRATION (test code=MCHC) 30.9 g/dL 33.0-37.0 RED CELL DISTRIBUTION WIDTH CV (test code=RDW) 17.9 % 11.5-14.5 RED CELL DISTRIBUTION WIDTH SD (test code=RDW-SD) 50.5 fL 37.0-54.0 PLATELET COUNT (test code=PLT) 412 x10 3/uL 150-400 MEAN PLATELET VOLUME (test code=MPV) 10.4 fL 7.0-9.0 NEUTROPHIL % (test code=NT%) 79.5 % 56.0-77.0 IMMATURE GRANULOCYTE % (test code=IG%) 0.9 % 0.0-2.0 LYMPHOCYTE % (test code=LY%) 11.3 % 14.0-32.0 MONOCYTE % (test code=MO%) 6.9 % 4.8-9.0 EOSINOPHIL % (test code=EO%) 1.2 % 0.3-3.7 BASOPHIL % (test code=BA%) 0.2 % 0.0-2.0 NUCLEATED RBC % (test code=NRBC%) 0.0 % 0-0 NEUTROPHIL # (test code=NT#) 10.98 x10 3/uL 2.0-7.6 IMMATURE GRANULOCYTE # (test code=IG#) 0.13 x10 3/uL 0.00-0.03 LYMPHOCYTE # (test code=LY#) 1.56 x10 3/uL 1.0-3.8 MONOCYTE # (test code=MO#) 0.95 x10 3/uL 0.1-0.8 EOSINOPHIL # (test code=EO#) 0.17 x10 3/uL 0.0-0.2 BASOPHIL # (test code=BA#) 0.03 x10 3/uL 0.0-0.2 NUCLEATED RBC # (test code=NRBC#) 0.00 x10 3/uL 0.0-0.1 MANUAL DIFF REQUIRED (test code=MDIFF) NO [id number] 07:40:00* Test Item Value Reference Range Comments TROPONIN-I (test code=TROPI) < 0.015 ng/mL 0.000-0.045 Negative: <=0.045 Positive: >=0.046 Correlation with serial results, other cardiac markers andclinical findings is necessary to determine the clinicalsignificance of this result. Results using different methodologies should not be comparedto one another as quantitative results may vary by method. COMMENTS: 3 troponins total (including troponin done in ED)[id number] 03:18:00* Test Item Value Reference Range Comments TROPONIN-I (test code=TROPI) < 0.015 ng/mL 0.000-0.045 Negative: <=0.045 Positive: >=0.046 Correlation with serial results, other cardiac markers andclinical findings is necessary to determine the clinicalsignificance of this result. Results using different methodologies should not be comparedto one another as quantitative results may vary by method. COMMENTS: 3 troponins total (including troponin done in ED)URINALYSIS COMPLETE 2018-10-09 03:14:00* Test Item Value Reference Range Comments UA COLOR (test code=COLU) YELLOW YEL/STRAW UA APPEARANCE (test code=APPU) CLOUDY CLEAR UA GLUCOSE DIPSTICK (test code=DGLUU) NEGATIVE NEGATIVE UA BILIRUBIN DIPSTICK (test code=BILU) NEGATIVE NEGATIVE UA KETONE DIPSTICK (test code=KETU) NEGATIVE NEGATIVE UA SPECIFIC GRAVITY (test code=SGU) 1.018 1.005-1.030 UA BLOOD DIPSTICK (test code=MARLENI) NEGATIVE NEGATIVE UA PH DIPSTICK (test code=MIGUEL ANGEL) 5.0 5.0-7.0 UA PROTEIN DIPSTICK (test code=PROU) NEGATIVE NEGATIVE UA UROBILINIOGEN DIPSTICK (test code=URO) 0.2 mg/dL 0.2-1.0 UA NITRITE DIPSTICK (test code=HIREN) NEGATIVE NEGATIVE UA LEUKOCYTE ESTERASE DIPSTICK (test code=LEUU) 1+ NEGATIVE UA WBC (test code=WBCU) 10-20 WBC/HPF 0-3 UA RBC (test code=RBCU) 0-3 RBC/HPF 0-3 UA BACTERIA (test code=BACU) 1+ /HPF NONE SEEN UA SQUAMOUS CELLS (test code=SQU) 0-5 /HPF NONE SEEN UA URIC ACID CRYSTALS (test code=URIU) 1+ /HPF NONE UA MUCUS (test code=MUCU) TRACE /LPF NONE SEEN COMMENTS: Clean CatchPROCALCITONIN (PCT)2018-10-09 01:10:00* Test Item Value Reference Range Comments PROCALCITONIN (PCT) (test code=PROCAL) 1.71 ng/mL 0.00-0.05 PROCALCITONIN (PCT) NORMAL RANGE (ADULT): <0.05 NG/ML. * a concentration <0.5 ng/mL represents a low risk of severe sepsis and/or septic shock.* a concentration >2 ng/mL represents a high risk of severe sepsis and/or septic shock.Nevertheless, concentrations <0.5 ng/mL do not exclude aninfection, on account of localized infections (withoutsystemic signs) which can be associated with such lowconcentrations, or a systemic infection in its initialstages (< 6 hours). Furthermore, increased procalcitonincan occur without infection. PCT concentrations between 0.5and 2.0 ng/mL should be interpreted taking into account thepatient's history. It is recommended to retest PCT within6-24 hours if any concentrations <2 ng/mL are obtained. CBC W/AUTO [id number] 23:28:00* Test Item Value Reference Range Comments WHITE BLOOD CELL (test code=WBC) 16.28 x10 3/uL 4.5-11.0 RED BLOOD CELL (test code=RBC) 3.42 x10 6/uL 4.00-5.60 HEMOGLOBIN (test code=HGB) 8.4 g/dL 12.5-16.9 HEMATOCRIT (test code=HCT) 25.6 % 37.5-50.7 MEAN CELL VOLUME (test code=MCV) 74.9 fL 81.0-99.0 MEAN CELL HGB (test code=MCH) 24.6 pg 27.0-33.0 MEAN CELL HGB CONCETRATION (test code=MCHC) 32.8 g/dL 33.0-37.0 RED CELL DISTRIBUTION WIDTH CV (test code=RDW) 17.8 % 11.5-14.5 RED CELL DISTRIBUTION WIDTH SD (test code=RDW-SD) 47.5 fL 37.0-54.0 PLATELET COUNT (test code=PLT) 534 x10 3/uL 150-400 MEAN PLATELET VOLUME (test code=MPV) 10.8 fL 7.0-9.0 NEUTROPHIL % (test code=NT%) 78.7 % 56.0-77.0 IMMATURE GRANULOCYTE % (test code=IG%) 1.5 % 0.0-2.0 LYMPHOCYTE % (test code=LY%) 11.2 % 14.0-32.0 MONOCYTE % (test code=MO%) 8.2 % 4.8-9.0 EOSINOPHIL % (test code=EO%) 0.2 % 0.3-3.7 BASOPHIL % (test code=BA%) 0.2 % 0.0-2.0 NUCLEATED RBC % (test code=NRBC%) 0.2 % 0-0 NEUTROPHIL # (test code=NT#) 12.80 x10 3/uL 2.0-7.6 IMMATURE GRANULOCYTE # (test code=IG#) 0.25 x10 3/uL 0.00-0.03 LYMPHOCYTE # (test code=LY#) 1.83 x10 3/uL 1.0-3.8 MONOCYTE # (test code=MO#) 1.33 x10 3/uL 0.1-0.8 EOSINOPHIL # (test code=EO#) 0.03 x10 3/uL 0.0-0.2 BASOPHIL # (test code=BA#) 0.04 x10 3/uL 0.0-0.2 NUCLEATED RBC # (test code=NRBC#) 0.04 x10 3/uL 0.0-0.1 MANUAL DIFF REQUIRED (test code=MDIFF) NO RBC [id number] 23:28:00* Test Item Value Reference Range Comments POLYCHROMASIA (test code=POLC) SLIGHT POIKILOCYTOSIS (test code=POIK) SLIGHT ANISOCYTOSIS (test code=ANISO) 1+ MICROCYTOSIS (test code=MICR) 1+ MACROCYTOSIS (test code=MACR) FEW TEAR DROP CELLS (test code=TEAR) FEW ELLIPTOCYTES (test code=ELL) FEW - XR FOOT 3 + V [id number] 22:42:00 FAX: Timmy Hensley MD [phone] [place]: St: REG Name: Fareed TOMSEBAS [facility] : [birth year] Age/S: 48/M [address] [place] [address] Unit #: [id number] Loc: [address] [address] Phys: Timmy Hensley MD Acct: [id number] Dis Date: Status: REG ER PHONE #: [phone] Exam Date: 10/08/20182235 FAX #: [phone] Reason: Sepsis foot ulcer r/o sub q gas EXAMS: CPT CODE: [id number] XR FOOT 3 + [place] [address] Procedure: Left Foot Radiographs. Clinical Indication: Left foot infection, sepsis, ulcer. Comparison: None. FINDINGS: The 3 views of the left foot show degenerative change involving the tarsal bones, metatarsop halangeal joints and interphalangeal joints including marginal osteophyte formation. No acute displaced fracture is observed however interpretation is limited secondary to patient positioning and contractures. There is m arked soft tissue swelling involving the entire left foot. Subcutaneous a ir is noted dorsally. Overlying bandage material obscures fine bony detai l. IMPRESSION: 1. Degenerative change with marked soft tissue swelling and subcutaneous air.. SL: K56-H at 1961 Reported and signed by: Chapincito Castro M.D. CC: Timmy Hensley MD Technologist: Tracie Ye, RT(R); Florinda Jennings RT(R)R [facility] Date/Time/By: 10/08/2018 (2241) : By: ValerioTDO Orig Print D/T: S: 10/08/2018 (3962) PAGE 1 Signed Report - XR CHEST 1 [id number] 22:40:00 FAX: Timmy Hensley MD [phone] [place]: St: REG Name: Fareed SEBAS TOM [facility] : [birth year] Age/S: 48/M [address] [place] [address] Unit #: [id number] Loc: [address] [address] Phys: Timmy Hensley MD Acct: [id number] Dis Date: Status: REG ER PHONE #: [phone] Exam Date: 10/08/20182234 FAX #: [phone] Reason: Sepsis EXAMS: CPT CODE: [id number] XR CHEST 1 V 24503 PROCEDURE: Chest Radiograph. Clinical Indication: Sepsis, foot infection. Comparison: Chest radiograph 08/29/2018. FINDINGS: The chest sh ows normal lung volumes without interstitial or airspace opacities, pleura l effusions or pneumothorax. The heart size and pulmonary vasculature are normal. The trachea is midline. There are no clinically s ignificant osseous abnormalities noted. IMPRESSION: 1. No chest radiographic evidence of acute cardiopulmonary disease. SL: K56-H at 2240 Reported and signed by: Chapincito Castro M.D. CC: Timmy Hensley MD [facility] hnologist: Tracie Ye RT(R); RT Ho(R)R Trnscrd Date/T nitesh/By: 10/08/2018 (3064) : By: ValerioTDO Orig Print D/T: S: 9 (1347) PAGE 1 Signed Report CBC W/AUTO [id number] 22:34:00* Test Item Value Reference Range Comments WHITE BLOOD CELL (test code=WBC) 16.28 x10 3/uL 4.5-11.0 RED BLOOD CELL (test code=RBC) 3.42 x10 6/uL 4.00-5.60 HEMOGLOBIN (test code=HGB) 8.4 g/dL 12.5-16.9 HEMATOCRIT (test code=HCT) 25.6 % 37.5-50.7 MEAN CELL VOLUME (test code=MCV) 74.9 fL 81.0-99.0 MEAN CELL HGB (test code=MCH) 24.6 pg 27.0-33.0 MEAN CELL HGB CONCETRATION (test code=MCHC) 32.8 g/dL 33.0-37.0 RED CELL DISTRIBUTION WIDTH CV (test code=RDW) 17.8 % 11.5-14.5 RED CELL DISTRIBUTION WIDTH SD (test code=RDW-SD) 47.5 fL 37.0-54.0 PLATELET COUNT (test code=PLT) 534 x10 3/uL 150-400 MEAN PLATELET VOLUME (test code=MPV) 10.8 fL 7.0-9.0 NEUTROPHIL % (test code=NT%) 78.7 % 56.0-77.0 IMMATURE GRANULOCYTE % (test code=IG%) 1.5 % 0.0-2.0 LYMPHOCYTE % (test code=LY%) 11.2 % 14.0-32.0 MONOCYTE % (test code=MO%) 8.2 % 4.8-9.0 EOSINOPHIL % (test code=EO%) 0.2 % 0.3-3.7 BASOPHIL % (test code=BA%) 0.2 % 0.0-2.0 NUCLEATED RBC % (test code=NRBC%) 0.2 % 0-0 NEUTROPHIL # (test code=NT#) 12.80 x10 3/uL 2.0-7.6 IMMATURE GRANULOCYTE # (test code=IG#) 0.25 x10 3/uL 0.00-0.03 LYMPHOCYTE # (test code=LY#) 1.83 x10 3/uL 1.0-3.8 MONOCYTE # (test code=MO#) 1.33 x10 3/uL 0.1-0.8 EOSINOPHIL # (test code=EO#) 0.03 x10 3/uL 0.0-0.2 BASOPHIL # (test code=BA#) 0.04 x10 3/uL 0.0-0.2 NUCLEATED RBC # (test code=NRBC#) 0.04 x10 3/uL 0.0-0.1 MANUAL DIFF REQUIRED (test code=MDIFF) NO RBC [id number] 22:34:00* Test Item Value Reference Range Comments ANISOCYTOSIS (test code=ANISO) CBC W/AUTO [id number] 22:34:00* Test Item Value Reference Range Comments WHITE BLOOD CELL (test code=WBC) 16.28 x10 3/uL 4.5-11.0 RED BLOOD CELL (test code=RBC) 3.42 x10 6/uL 4.00-5.60 HEMOGLOBIN (test code=HGB) 8.4 g/dL 12.5-16.9 HEMATOCRIT (test code=HCT) 25.6 % 37.5-50.7 MEAN CELL VOLUME (test code=MCV) 74.9 fL 81.0-99.0 MEAN CELL HGB (test code=MCH) 24.6 pg 27.0-33.0 MEAN CELL HGB CONCETRATION (test code=MCHC) 32.8 g/dL 33.0-37.0 RED CELL DISTRIBUTION WIDTH CV (test code=RDW) 17.8 % 11.5-14.5 RED CELL DISTRIBUTION WIDTH SD (test code=RDW-SD) 47.5 fL 37.0-54.0 PLATELET COUNT (test code=PLT) 534 x10 3/uL 150-400 MEAN PLATELET VOLUME (test code=MPV) 10.8 fL 7.0-9.0 NEUTROPHIL % (test code=NT%) 78.7 % 56.0-77.0 IMMATURE GRANULOCYTE % (test code=IG%) 1.5 % 0.0-2.0 LYMPHOCYTE % (test code=LY%) 11.2 % 14.0-32.0 MONOCYTE % (test code=MO%) 8.2 % 4.8-9.0 EOSINOPHIL % (test code=EO%) 0.2 % 0.3-3.7 BASOPHIL % (test code=BA%) 0.2 % 0.0-2.0 NUCLEATED RBC % (test code=NRBC%) 0.2 % 0-0 NEUTROPHIL # (test code=NT#) 12.80 x10 3/uL 2.0-7.6 IMMATURE GRANULOCYTE # (test code=IG#) 0.25 x10 3/uL 0.00-0.03 LYMPHOCYTE # (test code=LY#) 1.83 x10 3/uL 1.0-3.8 MONOCYTE # (test code=MO#) 1.33 x10 3/uL 0.1-0.8 EOSINOPHIL # (test code=EO#) 0.03 x10 3/uL 0.0-0.2 BASOPHIL # (test code=BA#) 0.04 x10 3/uL 0.0-0.2 NUCLEATED RBC # (test code=NRBC#) 0.04 x10 3/uL 0.0-0.1 MANUAL DIFF REQUIRED (test code=MDIFF) NO RBC [id number] 22:34:00* Test Item Value Reference Range Comments ANISOCYTOSIS (test code=ANISO) HEPATIC FUNCTION [id number] 22:32:00* Test Item Value Reference Range Comments TOTAL PROTEIN (test code=PROT) 7.1 g/dL 6.4-8.2 ALBUMIN (test code=ALB) 1.80 g/dL 3.4-5.0 BILIRUBIN TOTAL (test code=BILT) 0.40 mg/dL 0.0-1.0 BILIRUBIN DIRECT (test code=BILD) 0.20 MG/DL 0.0-0.30 BILIRUBIN INDIRECT (test code=BILIND) 0.20 MG/DL SGOT/AST (test code=AST) 168 IUnit/L 15-37 SGPT/ALT (test code=ALT) 139 IUnit/L 15-65 ALKALINE PHOSPHATASE TOTAL (test code=ALKP) 182 IUnit/L 20-125 TROPONIN-I [id number] 21:58:00* Test Item Value Reference Range Comments TROPONIN-I RAPID (test code=TROPIRAP) 0.00 ng/mL 0.00-0.08 Performed by certified chocolate finisher operator at [facility] Negative: <=0.08 Positive: >=0.09An elevated troponin value alone is not sufficient todiagnose a myocardial infarction. Rather, the patient sclinical presentation (history, physical exam) and ECGshould be used in conjunction with troponin in thediagnostic evaluation of suspected myocardial infarction. Aserial sampling protocol is recommended to facilitate the identification of temporal changes in troponin levels characteristic of [place]. LACTIC ACID [id number] 21:52:00* Test Item Value Reference Range Comments LACTIC ACID POC (test code=LACTP) 1.9 MMOL/L 0.90-1.70 Performed by certified chocolate finisher operator at [facility] CHEMISTRY 8 [id number] 21:51:00* Test Item Value Reference Range Comments ISTAT-SODIUM (test code=NAP) MMOL/L 134-147 ISTAT-POTASSIUM (test code=KP) MMOL/L 3.4-5.0 ISTAT-CHLORIDE (test code=CLP) MMOL/L 100-108 ISTAT CARBON DIOXIDE (test code=ISTAT-CO2) mmol/L 21-33 ISTAT CALCIUM IONIZED (test code=ISTAT-NELLY) MG/DL 1.12-1.32 ISTAT-GLUCOSE (test code=GLUP) MG/DL 70-110 ISTAT-BUN (test code=BUNP) MG/DL 7-18 BEDSIDE CREATININE (test code=CREATBED) MG/DL 0.6-1.3 GLOMERULAR FILTRATION RATE POC (test code=GFRBED) 128 ML/MIN CHEMISTRY 8 [id number] 21:51:00* Test Item Value Reference Range Comments ISTAT-SODIUM (test code=NAP) 128 MMOL/L 134-147 ISTAT-POTASSIUM (test code=KP) 3.7 MMOL/L 3.4-5.0 ISTAT-CHLORIDE (test code=CLP) 94 MMOL/L 100-108 Performed by certified chocolate finisher operator at [facility] ISTAT CARBON DIOXIDE (test code=ISTAT-CO2) 21.0 mmol/L 21-33 ISTAT CALCIUM IONIZED (test code=ISTAT-NELLY) 1.10 MG/DL 1.12-1.32 ISTAT-GLUCOSE (test code=GLUP) 124 MG/DL 70-110 ISTAT-BUN (test code=BUNP) 19 MG/DL 7-18 BEDSIDE CREATININE (test code=CREATBED) 0.7 MG/DL 0.6-1.3 GLOMERULAR FILTRATION RATE POC (test code=GFRBED) 128 ML/MIN - MRI LW JNT W WO CONT [id number] 22:24:00 FAX: Lionel Kim [phone] [place]: B St: DIS FAX: Ross Carr MD [phone] FAX: Nacho Perry MD [phone] Name: CHERYLSEBAS [facility] : 1970 Age/S: 48/M [address] Unit #: [id number] Loc: V.[address] [place] [address] Phys: Ross Medrano MD Acct: [id number] Dis Date: [id number] Status: DIS IN ONE #: [phone] Exam Date: 08/30/20181924 FAX #: [phone] Reason: entrapment femoral neuropathy EXAMS: CPT CODE: [id number] [place] [address] HISTORY: Entra pment femoral neuropathy. COMPARISON: None available. MRI left hip with and without contrast: Note: Large naytx-hw-iqkd images are not available limiting evaluation. Additional large field-of- view nonfat suppressed images recommended. Diffuse atrophy of the buttock musculature is noted. Piriformis muscle is not completely included limiting evaluation. Path of the sciatic nerve cannot be evaluated on this examination as it is incompletely included. No trochant du bursitis is noted. Coxa magna deformity of the hip is noted. No hip joint fluid is noted. Moderately narrowed hip joint. No gluteal bursiti s. Atrophy of the quadriceps musculature with relative sparing of the add uctor musculature. Following gadolinium no abnormal enhancement of the lottie ne marrow is noted. No abnormal enhancement of the musculature is noted. The labrum is difficult to assess. No femoral acetabular impingement is noted. No pincer impingement. Cam impingement is difficult to assess due to deformity of the femoral head and neck. IMPRESSION: Limited examination as the entire hip musculature is not included including the piriformis muscle. Large ujlie-mm-icto is recommended. The entire sciatic nerve path is not included on this exam. No acute fracture. No AVN. 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 Narrowed hip joint. No gluteal or trochanteric bursitis or joint fluid. Marked atrophy of the musculature especially the gluteal musculature. No abnormal enhancement or mass is noted. No femoral a cetabular impingement. at 2224 Reported and signed by: Mohan Lynne M.D. PAGE 1 Signed Report (C ONTINUED) FAX: Lionel Kim [phone] [place]: B St: DIS FAX: Ross Carr MD [phone] FAX: Nacho Perry MD [phone] Name: SEBAS LUNA [facility] : 1970 Age/S: 48/M [address] [place] Unit #: [id number] Loc: [address] [address] Phys: Ross Medrano MD Acct: [id number] Dis Date: 20180830 Status: DIS IN PHONE #: [phone] Exam Date: 08/30/20181924 FAX #: [phone] Reason: entrapment femoral neuropathy EXAMS: CPT CODE: [id number] [place] [address] <Continued> CC: Lionel Rosas [facility] [place]; Ross Medrano MD; Nacho Feng Technologist: RT FELICITY - SHANIQUE Trnorrd Date/Time/By: 08/30/2018 (2224) : By: [email or web address] Orig Print D/T: S: 08/30/2018 (2546) PAGE 2 Signed Report CBC W/AUTO [id number] 17:48:00* Test Item Value Reference Range Comments WHITE BLOOD CELL (test code=WBC) 8.3 K/mm3 4.5-12.5 RED BLOOD CELL (test code=RBC) 3.72 mill/mm3 4.0-5.8 HEMOGLOBIN (test code=HGB) 9.2 gram/dL 13.0-17.5 HEMATOCRIT (test code=HCT) 31.2 % 42.0-52.0 MEAN CELL VOLUME (test code=MCV) 83.9 fL 80-98 MEAN CELL HGB (test code=MCH) 24.7 picogram 27.0-33.0 MEAN CELL HGB CONCETRATION (test code=MCHC) 29.5 gram/dL 33.0-36.0 RED CELL DISTRIBUTION WIDTH (test code=RDW) 17.3 % 11.6-16.2 RED CELL DISTRIBUTION WIDTH SD (test code=RDW-SD) 53.5 fL 37.0-51.0 PLATELET COUNT (test code=PLT) 165 K/mm3 150-450 MEAN PLATELET VOLUME (test code=MPV) 11.8 fL 6.7-11.0 NEUTROPHIL % (test code=NT%) 56.8 % 39.0-69.0 IMMATURE GRANULOCYTE % (test code=IG%) 0.2 % 0.0-5.0 LYMPHOCYTE % (test code=LY%) 25.6 % 25.0-55.0 MONOCYTE % (test code=MO%) 7.5 % 0.0-10.0 EOSINOPHIL % (test code=EO%) 9.4 % 0.0-5.0 BASOPHIL % (test code=BA%) 0.5 % 0.0-1.0 NUCLEATED RBC % (test code=NRBC%) 0.0 % 0-0 NEUTROPHIL # (test code=NT#) 4.73 K/mm3 1.8-7.7 IMMATURE GRANULOCYTE # (test code=IG#) 0.02 x10 3/uL 0-0.03 LYMPHOCYTE # (test code=LY#) 2.13 K/mm3 1.0-5.0 MONOCYTE # (test code=MO#) 0.62 K/mm3 0-0.8 EOSINOPHIL # (test code=EO#) 0.78 K/mm3 0.0-0.5 BASOPHIL # (test code=BA#) 0.04 K/mm3 0.0-0.2 NUCLEATED RBC # (test code=NRBC#) 0.00 K/mm3 0.0-0.1 MANUAL DIFF REQUIRED (test code=MDIFF) NO, ONLY SCAN NEEDED DIFFERENTIAL [id number] 17:48:00* Test Item Value Reference Range Comments STAIN ACCEPTABILITY (test code=STN ACCEPTABLE) STAIN ACCEPTABLE POIKILOCYTOSIS (test code=POIK) 1+ ANISOCYTOSIS (test code=ANISO) 1+ MACROCYTOSIS (test code=MACR) 1+ OVALOCYTES (test code=OVAL) 1+ PLATELET ESTIMATE (test code=PLTEST) ADEQUATE PLATELET MORPHOLOGY (test code=PLTMORPH) SIZE VARIABLE COMPREHENSIVE METABOLIC [id number] 17:29:00* Test Item Value Reference Range Comments SODIUM (test code=NA) 142 mmol/L 136-145 POTASSIUM (test code=K) 3.9 mmol/L 3.5-5.1 CHLORIDE (test code=CL) 107.0 mmol/L 98-107 CARBON DIOXIDE (test code=CO2) 29.0 mmol/L 21-32 ANION GAP (test code=GAP) 9.9 10-20 GLUCOSE (test code=GLU) 116 mg/dL 74-106 BLOOD UREA NITROGEN (test code=BUN) 19 mg/dL 7-18 GLOMERULAR FILTRATION RATE (test code=GFR) > 60 mL/min >=60 Estimated GFR by using Modified MDRD formula.Chronic kidney disease is defined as either kidney damageor GFR <60 mL/min/1.73 m2 for >3 months. CREATININE (test code=CREAT) 0.50 mg/dL 0.7-1.3 BUN/CREATININE RATIO (test code=BUN/CREA) 38.0 10-20 TOTAL PROTEIN (test code=PROT) 5.8 gram/dL 6.4-8.2 ALBUMIN (test code=ALB) 2.9 g/dL 3.4-5.0 GLOBULIN (test code=GLOB) 2.9 gram/dL 2.7-4.2 ALBUMIN/GLOBULIN RATIO (test code=A/G) 1.0 0.75-1.50 CALCIUM (test code=CA) 8.5 mg/dL 8.5-10.1 BILIRUBIN TOTAL (test code=BILT) 0.30 mg/dL 0.0-1.0 SGOT/AST (test code=AST) 9 IUnit/L 15-37 SGPT/ALT (test code=ALT) 25 IUnit/L 12-78 ALKALINE PHOSPHATASE TOTAL (test code=ALKP) 65 IUnit/L 45-117 Note change in reference range due to change in reagent. COMPREHENSIVE METABOLIC [id number] 17:19:00* Test Item Value Reference Range Comments SODIUM (test code=NA) 142 mmol/L 136-145 POTASSIUM (test code=K) 3.9 mmol/L 3.5-5.1 CHLORIDE (test code=CL) 107.0 mmol/L 98-107 CARBON DIOXIDE (test code=CO2) mmol/L 21-32 ANION GAP (test code=GAP) 10-20 GLUCOSE (test code=GLU) mg/dL 74-106 BLOOD UREA NITROGEN (test code=BUN) mg/dL 7-18 GLOMERULAR FILTRATION RATE (test code=GFR) mL/min >=60 CREATININE (test code=CREAT) mg/dL 0.7-1.3 BUN/CREATININE RATIO (test code=BUN/CREA) 10-20 TOTAL PROTEIN (test code=PROT) gram/dL 6.4-8.2 ALBUMIN (test code=ALB) g/dL 3.4-5.0 GLOBULIN (test code=GLOB) gram/dL 2.7-4.2 ALBUMIN/GLOBULIN RATIO (test code=A/G) 0.75-1.50 CALCIUM (test code=CA) mg/dL 8.5-10.1 BILIRUBIN TOTAL (test code=BILT) mg/dL 0.0-1.0 SGOT/AST (test code=AST) IUnit/L 15-37 SGPT/ALT (test code=ALT) IUnit/L 12-78 ALKALINE PHOSPHATASE TOTAL (test code=ALKP) IUnit/L 45-117 CBC W/AUTO [id number] 17:05:00* Test Item Value Reference Range Comments WHITE BLOOD CELL (test code=WBC) 8.3 K/mm3 4.5-12.5 RED BLOOD CELL (test code=RBC) 3.72 mill/mm3 4.0-5.8 HEMOGLOBIN (test code=HGB) 9.2 gram/dL 13.0-17.5 HEMATOCRIT (test code=HCT) 31.2 % 42.0-52.0 MEAN CELL VOLUME (test code=MCV) 83.9 fL 80-98 MEAN CELL HGB (test code=MCH) 24.7 picogram 27.0-33.0 MEAN CELL HGB CONCETRATION (test code=MCHC) 29.5 gram/dL 33.0-36.0 RED CELL DISTRIBUTION WIDTH (test code=RDW) 17.3 % 11.6-16.2 RED CELL DISTRIBUTION WIDTH SD (test code=RDW-SD) 53.5 fL 37.0-51.0 PLATELET COUNT (test code=PLT) 165 K/mm3 150-450 MEAN PLATELET VOLUME (test code=MPV) 11.8 fL 6.7-11.0 NEUTROPHIL % (test code=NT%) 56.8 % 39.0-69.0 IMMATURE GRANULOCYTE % (test code=IG%) 0.2 % 0.0-5.0 LYMPHOCYTE % (test code=LY%) 25.6 % 25.0-55.0 MONOCYTE % (test code=MO%) 7.5 % 0.0-10.0 EOSINOPHIL % (test code=EO%) 9.4 % 0.0-5.0 BASOPHIL % (test code=BA%) 0.5 % 0.0-1.0 NUCLEATED RBC % (test code=NRBC%) 0.0 % 0-0 NEUTROPHIL # (test code=NT#) 4.73 K/mm3 1.8-7.7 IMMATURE GRANULOCYTE # (test code=IG#) 0.02 x10 3/uL 0-0.03 LYMPHOCYTE # (test code=LY#) 2.13 K/mm3 1.0-5.0 MONOCYTE # (test code=MO#) 0.62 K/mm3 0-0.8 EOSINOPHIL # (test code=EO#) 0.78 K/mm3 0.0-0.5 BASOPHIL # (test code=BA#) 0.04 K/mm3 0.0-0.2 NUCLEATED RBC # (test code=NRBC#) 0.00 K/mm3 0.0-0.1 MANUAL DIFF REQUIRED (test code=MDIFF) NO, ONLY SCAN NEEDED DIFFERENTIAL [id number] 17:05:00* Test Item Value Reference Range Comments STAIN ACCEPTABILITY (test code=STN ACCEPTABLE) CABOT RINGS (test code=CAB) MORPHOLOGY COMMENT (test code=MOC) PLATELET ESTIMATE (test code=PLTEST) PLATELET MORPHOLOGY (test code=PLTMORPH) CBC W/AUTO [id number] 17:05:00* Test Item Value Reference Range Comments WHITE BLOOD CELL (test code=WBC) 8.3 K/mm3 4.5-12.5 RED BLOOD CELL (test code=RBC) 3.72 mill/mm3 4.0-5.8 HEMOGLOBIN (test code=HGB) 9.2 gram/dL 13.0-17.5 HEMATOCRIT (test code=HCT) 31.2 % 42.0-52.0 MEAN CELL VOLUME (test code=MCV) 83.9 fL 80-98 MEAN CELL HGB (test code=MCH) 24.7 picogram 27.0-33.0 MEAN CELL HGB CONCETRATION (test code=MCHC) 29.5 gram/dL 33.0-36.0 RED CELL DISTRIBUTION WIDTH (test code=RDW) 17.3 % 11.6-16.2 RED CELL DISTRIBUTION WIDTH SD (test code=RDW-SD) 53.5 fL 37.0-51.0 PLATELET COUNT (test code=PLT) 165 K/mm3 150-450 MEAN PLATELET VOLUME (test code=MPV) 11.8 fL 6.7-11.0 NEUTROPHIL % (test code=NT%) 56.8 % 39.0-69.0 IMMATURE GRANULOCYTE % (test code=IG%) 0.2 % 0.0-5.0 LYMPHOCYTE % (test code=LY%) 25.6 % 25.0-55.0 MONOCYTE % (test code=MO%) 7.5 % 0.0-10.0 EOSINOPHIL % (test code=EO%) 9.4 % 0.0-5.0 BASOPHIL % (test code=BA%) 0.5 % 0.0-1.0 NUCLEATED RBC % (test code=NRBC%) 0.0 % 0-0 NEUTROPHIL # (test code=NT#) 4.73 K/mm3 1.8-7.7 IMMATURE GRANULOCYTE # (test code=IG#) 0.02 x10 3/uL 0-0.03 LYMPHOCYTE # (test code=LY#) 2.13 K/mm3 1.0-5.0 MONOCYTE # (test code=MO#) 0.62 K/mm3 0-0.8 EOSINOPHIL # (test code=EO#) 0.78 K/mm3 0.0-0.5 BASOPHIL # (test code=BA#) 0.04 K/mm3 0.0-0.2 NUCLEATED RBC # (test code=NRBC#) 0.00 K/mm3 0.0-0.1 MANUAL DIFF REQUIRED (test code=MDIFF) NO, ONLY SCAN NEEDED DIFFERENTIAL [id number] 17:05:00* Test Item Value Reference Range Comments STAIN ACCEPTABILITY (test code=STN ACCEPTABLE) CABOT RINGS (test code=CAB) MORPHOLOGY COMMENT (test code=MOC) PLATELET ESTIMATE (test code=PLTEST) PLATELET MORPHOLOGY (test code=PLTMORPH) CBC W/AUTO [id number] 17:05:00* Test Item Value Reference Range Comments WHITE BLOOD CELL (test code=WBC) 8.3 K/mm3 4.5-12.5 RED BLOOD CELL (test code=RBC) 3.72 mill/mm3 4.0-5.8 HEMOGLOBIN (test code=HGB) 9.2 gram/dL 13.0-17.5 HEMATOCRIT (test code=HCT) 31.2 % 42.0-52.0 MEAN CELL VOLUME (test code=MCV) 83.9 fL 80-98 MEAN CELL HGB (test code=MCH) 24.7 picogram 27.0-33.0 MEAN CELL HGB CONCETRATION (test code=MCHC) 29.5 gram/dL 33.0-36.0 RED CELL DISTRIBUTION WIDTH (test code=RDW) 17.3 % 11.6-16.2 RED CELL DISTRIBUTION WIDTH SD (test code=RDW-SD) 53.5 fL 37.0-51.0 PLATELET COUNT (test code=PLT) 165 K/mm3 150-450 MEAN PLATELET VOLUME (test code=MPV) 11.8 fL 6.7-11.0 NEUTROPHIL % (test code=NT%) 56.8 % 39.0-69.0 IMMATURE GRANULOCYTE % (test code=IG%) 0.2 % 0.0-5.0 LYMPHOCYTE % (test code=LY%) 25.6 % 25.0-55.0 MONOCYTE % (test code=MO%) 7.5 % 0.0-10.0 EOSINOPHIL % (test code=EO%) 9.4 % 0.0-5.0 BASOPHIL % (test code=BA%) 0.5 % 0.0-1.0 NUCLEATED RBC % (test code=NRBC%) 0.0 % 0-0 NEUTROPHIL # (test code=NT#) 4.73 K/mm3 1.8-7.7 IMMATURE GRANULOCYTE # (test code=IG#) 0.02 x10 3/uL 0-0.03 LYMPHOCYTE # (test code=LY#) 2.13 K/mm3 1.0-5.0 MONOCYTE # (test code=MO#) 0.62 K/mm3 0-0.8 EOSINOPHIL # (test code=EO#) 0.78 K/mm3 0.0-0.5 BASOPHIL # (test code=BA#) 0.04 K/mm3 0.0-0.2 NUCLEATED RBC # (test code=NRBC#) 0.00 K/mm3 0.0-0.1 MANUAL DIFF REQUIRED (test code=MDIFF) NO, ONLY SCAN NEEDED DIFFERENTIAL [id number] 17:05:00* Test Item Value Reference Range Comments STAIN ACCEPTABILITY (test code=STN ACCEPTABLE) MORPHOLOGY COMMENT (test code=MOC) PLATELET ESTIMATE (test code=PLTEST) PLATELET MORPHOLOGY (test code=PLTMORPH) CBC W/AUTO [id number] 17:05:00* Test Item Value Reference Range Comments WHITE BLOOD CELL (test code=WBC) 8.3 K/mm3 4.5-12.5 RED BLOOD CELL (test code=RBC) 3.72 mill/mm3 4.0-5.8 HEMOGLOBIN (test code=HGB) 9.2 gram/dL 13.0-17.5 HEMATOCRIT (test code=HCT) 31.2 % 42.0-52.0 MEAN CELL VOLUME (test code=MCV) 83.9 fL 80-98 MEAN CELL HGB (test code=MCH) 24.7 picogram 27.0-33.0 MEAN CELL HGB CONCETRATION (test code=MCHC) 29.5 gram/dL 33.0-36.0 RED CELL DISTRIBUTION WIDTH (test code=RDW) 17.3 % 11.6-16.2 RED CELL DISTRIBUTION WIDTH SD (test code=RDW-SD) 53.5 fL 37.0-51.0 PLATELET COUNT (test code=PLT) 165 K/mm3 150-450 MEAN PLATELET VOLUME (test code=MPV) 11.8 fL 6.7-11.0 NEUTROPHIL % (test code=NT%) 56.8 % 39.0-69.0 IMMATURE GRANULOCYTE % (test code=IG%) 0.2 % 0.0-5.0 LYMPHOCYTE % (test code=LY%) 25.6 % 25.0-55.0 MONOCYTE % (test code=MO%) 7.5 % 0.0-10.0 EOSINOPHIL % (test code=EO%) 9.4 % 0.0-5.0 BASOPHIL % (test code=BA%) 0.5 % 0.0-1.0 NUCLEATED RBC % (test code=NRBC%) 0.0 % 0-0 NEUTROPHIL # (test code=NT#) 4.73 K/mm3 1.8-7.7 IMMATURE GRANULOCYTE # (test code=IG#) 0.02 x10 3/uL 0-0.03 LYMPHOCYTE # (test code=LY#) 2.13 K/mm3 1.0-5.0 MONOCYTE # (test code=MO#) 0.62 K/mm3 0-0.8 EOSINOPHIL # (test code=EO#) 0.78 K/mm3 0.0-0.5 BASOPHIL # (test code=BA#) 0.04 K/mm3 0.0-0.2 NUCLEATED RBC # (test code=NRBC#) 0.00 K/mm3 0.0-0.1 MANUAL DIFF REQUIRED (test code=MDIFF) NO, ONLY SCAN NEEDED DIFFERENTIAL [id number] 17:05:00* Test Item Value Reference Range Comments STAIN ACCEPTABILITY (test code=STN ACCEPTABLE) CABOT RINGS (test code=CAB) MORPHOLOGY COMMENT (test code=MOC) PLATELET ESTIMATE (test code=PLTEST) PLATELET MORPHOLOGY (test code=PLTMORPH) - XR CHEST 1 [id number] 08:01:00 FAX: Lionel Kim [phone] [place]: St: ADM FAX: Emiliano Rincon MD [phone] FAX: Nacho Perry MD [phone] Name: SEBAS LUNA [facility] : 1970 Age/S: 48/M [address] Unit #: [id number] Loc: V.3047 [place] [address] Phys: Emiliano Doll MD Acct: [id number] Dis Date: Status: ADM IN ONE #: [phone] Exam Date: 08/29/2018 0730 FAX #: [phone] Reason: right sided pneumonia jah EXAMS: CPT CODE: [id number] XR CHEST 1 V 60958 REASON FOR EXAM: right sided pneumonia jah Exam Order Date: 08/29/2018 5:00 AM Ordering M.D.: Emiliano Doll MD PROCEDUR E: - XR CHEST 1 V COMPARISON: 2 view chest x-ray August 28, 2018 FINDINGS: Left upper extremity PICC is unchanged from the pre vious exam. Bibasilar subsegmental atelectasis is present. Compare d to the previous exam there is slightly more opacification in the infrahi lar right lung which may represent worsening atelectasis however sup erimposed consolidation cannot be excluded. The upper lungs are clear. Cardiac mediastinal silhouette and musculoskeletal structures are stable. IMPRESSION: Slightly worsening opacification in the infrahilar right lung may represent worsening atelectasis however superimposed consolidation cannot be excluded. Remaining findings uncha nged. at 0801 Reported and signed by: Jorje Jerome MD CC: Lionel Rosas [facility]; Emiliano Doll MD; Nacho Feng Technologist: SHY JOLLY IN RT(R) Trnscrd Date/Time/By: 08/29/2018 (0801 ) : By: [email or web address] Orig Print D/T: S: 08/29/2018 (04) PAGE 1 Signed Report - XR CHEST 2 [id number] 17:36:00 FAX: Lionel Kim [phone] [place]: St: ADM FAX: Nacho Perry MD [phone] [facility] 1970 [facility] 48[facility]M [address] [facility] Unit #: [id number] Loc: V.3047 [place] [address] Phys: ShermanChinotad Sorto Acct: [id number] Dis Date: Status: ADM IN PHONE #: [phone] Exam Date: 08/28/2018 1712 FAX #: [phone] Reason: pneumonia follow up EXAMS: CPT CODE: [id number] XR CHEST 2 V 88583 REASON FOR EXAM: pneumonia follow up Exam Order Date: 08/28/2018 12:00 AM Ordering MJuan Carlos: Tita toscano PROCEDURE: - XR CHEST 2 V COMPARISON: AP chest x-ray August 27, 2018 FINDINGS: Left-upper ext remity PICC is unchanged. Bibasilar subsegmental atelectasis is pr esent. However the lungs appear slightly better aerated from the prior ex am. Cardiomediastinal silhouette is prominent but stable. The medi astinal contours are within normal limits. Musculoskeletal s tructures are within normal limits. The visualized upper abdomen i s within normal limits. IMPRESSION: Bibasilar subsegment al atelectasis has improved from the previous day. Remaining findings s table. at 1739 Reported and signed by: Jorje Jerome MD CC: Lionel Carlg DO; Nacho Feng Technologist: Holly Gonzalez RT(R); Judy Moses Trnscrd Date/Time/By: 08/28/2018 (4676) : By: Ham.[email or web address] Orig Print D/T: S: 08/28/2018 (3400) PAGE 1 Signed Report [id number] 06:38:00* Test Item Value Reference Range Comments GLUBED (test code=GLUBED) 95 mg/dL 74-106 Performed by certified chocolate finisher operator at [facility] - XR CHEST 1 [id number] 13:24:00 FAX: Lionel Kim [phone] [place]: B St: ADM FAX: Colin Holly MD [phone] FAX: Nacho Perry MD [phone] Name: SEBAS LUNA [facility] : 1970 Age/S: 48/M [address] Unit #: [id number] Loc: V.[address] [place] [address] Phys: Colin Beltre MD Acct: [id number] Dis Date: Status: ADM IN ONE #: [phone] Exam Date: 08/27/2018 1300 FAX #: [phone] Reason: chf EXAMS: CPT CODE: [id number] XR CHEST 1 V 11123 TECHNIQUE - XR CHEST 1 V . COMPARISON: Chest x-ray 08/26/2018 HIS TORY: 48 years Male chf FINDINGS: Left arm PICC line catheter in place. Mild congestion. Cardiac silhouette is prominent. No pneumothorax. Right basilar atelectasis less likely infiltrates. Overall since old chest x-ray 08/26/2018 incre ase right lower lung field atelectasis versus infiltrates medially. IMPRESSION: Overall since old chest x-ray 08/26/2018 increase right lower lung field atelectasis versus infiltrates medially. at 1324 Reported and signed by: Ian Lind M.D. CC: Lionel Carl DO; Colin Beltre MD; Nacho Feng Technologist: RT SUMMER(Andre) Yeceniascrd Date/Time/By: 08/27/2018 (132 4) : By: Sharath Parra Print D/T: S: 08/27/2018 (5742) PAGE 1 Signed Report BASIC METABOLIC [id number] 08:12:00* Test Item Value Reference Range Comments SODIUM (test code=NA) 139 mmol/L 136-145 POTASSIUM (test code=K) 3.9 mmol/L 3.5-5.1 CHLORIDE (test code=CL) 99.0 mmol/L 98-107 CARBON DIOXIDE (test code=CO2) 35.0 mmol/L 21-32 ANION GAP (test code=GAP) 8.9 10-20 GLUCOSE (test code=GLU) 148 mg/dL 74-106 BLOOD UREA NITROGEN (test code=BUN) 20 mg/dL 7-18 GLOMERULAR FILTRATION RATE (test code=GFR) > 60 mL/min >=60 Estimated GFR by using Modified MDRD formula.Chronic kidney disease is defined as either kidney damageor GFR <60 mL/min/1.73 m2 for >3 months. CREATININE (test code=CREAT) 0.50 mg/dL 0.7-1.3 BUN/CREATININE RATIO (test code=BUN/CREA) 40.0 10-20 CALCIUM (test code=CA) 9.5 mg/dL 8.5-10.1 [id number] 08:12:00* Test Item Value Reference Range Comments MAGNESIUM (test code=MAG) 2.0 mg/dL 1.8-2.4 PLATELET [id number] 07:28:00* Test Item Value Reference Range Comments PLATELET COUNT (test code=PLT) 213 K/mm3 150-450 - MRI BRAIN W WO [id number] 19:33:00 FAX: Lionel Kim marva [phone] [place]: [facility]: [facility] FAX: Ross Carr MD [phone] FAX: Nacho Perry MD [phone] Name: SEBAS LUNA [facility] : 1970 Age/S: 48/M [address] Unit #: [id number] Loc: [address] [place] [address] Phys: Ross Medrano MD Acct: [id number] Dis Date: Status: ADM IN PH ONE #: [phone] Exam Date: 08/26/20181925 FAX #: [phone] Reason: leg weakness EXAMS: CPT CODE: [id number] MR I BRAIN W WO CONT 81185 REASON FOR EXA M: leg weakness Exam Order Date: 08/26/2018 9:37 PM A ttfaheem Willard: Ross Medrano MD Procedure: - MRI BRAIN W WO CO NT Comparison: FINDINGS: Axial, sagittal, and noble l images of the head were obtained using T1, T2 weighted, inversion recove ry, and gradient echo sequences. The diffusion images are within normal l imits without abnormal signal intensity to suggest acute infarct. IV gadol inium was given. The sagittal images show normal pituitary, cerebellum, and brain stem. No evidence of suprasellar mass. The axial T2, inversion recovery, and gradient echo images show no eviden ce of intra or extra axial mass. The ventricles, cisterns, and sulci are m inimally prominent. No evidence of hemorrhage. The cerebellar pont ine angle area is within normal limits. There is no evidence of mass noted . The axial T1 images show no evidence of mass. No abnormal enhan cement seen on the postcontrast exam No evidence of old infa rct. The coronal images show normal optic chiasm. IMPRESSION: Nonspecific minimal enlargement of the ventricles jeffrey ggestive of nonobstructive hydrocephalus. No other significant findings at 1933 Reported and signed by: Xavi Mireles M.D. PAGE 1 Signed Report (CONTINUED) FAX: Lionel Kim [phone] [place]: B St: ADM FAX: Ross Carr MD [phone] FAX: Nacho Perry MD [phone] Name: SEBAS LUNA [facility] : 1970 Age/S: 48/M [address] Unit #: [id number] Lo c: V.3047 [place] [address] Phys: Ross Medrano MD Acct: [id number] Dis Date: Status: ADM IN PHONE #: [phone] Exam Date: 08/26/2018 192 FAX #: [phone] Melinda son: leg weakness EXAMS: CPT CODE: [id number] MRI BRAIN W WO CONT 12629 <Continued> CC: Lionel Rosas DO; Ross Medrano MD; Nacho Feng Technologist: Chaim Zhu)(MR) Trnorrd Date/Time/By: 08/26/2018 (1932) : By: LacyL Orig Print D/T: S: 08/26/2018 (1935) PAGE 2 Signed Report - CT NECK W W/O [id number] 17:53:00 [facility] 1970 Age/S: 48 / M [address] Unit #: [id number] Loc: [place] [address] Phys: Nacho Feng MD Acct: [id number] Dis Date: Status: ADM IN PHONE #: [phone] Exam Date: 08/26/2018 174 FAX #: [phone] Reason: SOB,swelling of the neck EXAMS: CPT CODE: [id number] CT NECK W W/O CONT 39700 REASON FOR EXAM:SOB,swelling of the neck PROCEDURE: - CT NECK W W/O CONT EXAM ORDERED DATE: 08/26/2018 1:52 PM ATTENDING MD: Nacho Feng MD FINDINGS: Axial images of the neck were obtained with IV contrast at 2.5 mm thickness. Reconstructed sagittal and coronal images were also provided for interpretation. Dose modulation, iterative reconstruction, and/or weight based adjustment of the MA/KV was utilized to reduce the radiation dose to as low as reasonably achievable. The parotid glands are within normal limits. The thyroid glands are unremarkab le. The submandibular glands are unremarkable. The jugular veins a nd carotid arteries are within normal limits. Minimal nodular appe arance of the vocal cord. No evidence of destruction of the cricoid carti keshia. Moderate retropharyngeal space thickening with severe narrowing of the airway in the area of the anterior cervical fusion at C2-3. The visualized paranasal sinuses are within normal limits. The temporal air cells and middle ear cavities are unremarkable. IMPRESSION: Moderate thickening of the retropharyngeal space at the level of the a nterior cervical fusion without evidence of focal abscess or fluid colle ction. Moderate narrowing of the air space secondary to the inflammatio n slightly more pronounced on the right. at 1752 Reported and signed by: Xavi Mireles M.D. CC: Lionel Rosas [facility]; Nacho Feng Technologist:Rosemarie Soler RT(R); JULIETA Nunes CTDI: DLP: Trnscb Da te/Time: 08/26/2018 (5364) t.VTL Orig Print D/T: S: 0 08/26/2018 (9554) PAGE 1 Signed Report - XR CHEST 1 [id number] 17:37:00 FAX: Lionel Kim [phone] [place]: St: [facility] FAX: Nacho Perry MD [phone] Name: SEBAS LUNA [facility] : 1970 Age/S: 48/M [address] Unit #: [id number] Loc: V.3047 [place] [address] Phys: Nacho Feng MD Acct: [id number] Dis Date: Status: ADM IN PHONE #: [phone] Exam Date: 08/26/2018 1625 FAX #: [phone] Reason: SOB EXAMS: CPT CODE: [id number] XR CHEST 1 V 14368 TECHNIQUE - XR CHEST 1 V . COMPARISON: Chest x-ray 07/24/2018 HISTORY: 48 years Male SOB FINDINGS: Left arm PICC line catheter in place. Subtle congestion. No pneumothorax. Cardiac silhouette is prominent. Lungs are hypoinflated. Overall since old study 07/24/2018 congestion is new. Left arm PICC line catheter is new and in good position. IMPRESSION: Overall since old study 07/24/2018 congestion is new. Left arm PICC line catheter is new and in good position. at 3261 Reported and signed by: Ian Lind M.D. CC: Megan Rosas DO; Nacho Feng Technologist: MUSA CORBETT, RT(R); Neida Colon RT(R) Trnscrd Date/Time/By: 08/26/2018 (3081) : By: Sharath Parra Print D/T: S: 08/26/2018 (2678) PAGE 1 Signed Report [id number] 00:35:00* Test Item Value Reference Range Comments CREATININE (test code=CREAT) 0.50 mg/dL 0.7-1.3 2303BLOOD DRAWN.ALONZO LandryLAB.SE 08/25/18 1535PT REFUSED ALONZO CROWE .V.LAB.AB 0523VANCOMYCIN [id number] 00:35:00* Test Item Value Reference Range Comments VANCOMYCIN TROUGH (test code=VANCT) 13.5 ug/mL 10-20 NV.VENKATA.DB2 [id number] 15:44:00 RUN DATE: 08/24/18 [facility] PAGE 1 RUN TIME: 1544 Specimen Inqui ry RUN USER: INTERFACE PATIENT: SEBAS LUNA ACCT #: [id number] LOC: [place] U #: [id number] AGE/SX: 48/M ROOM: [facility] RE08/19/18REG DR: Nacho Feng MD : 72 BED: A DIS: STATUS: ADM IN TLOC: SPEC #: [id number] RECD: 08/23/18 STATUS: ROSA NASSAR #: [id number] ODALYS: 08/23/18- SUBM DR: Jose M Coy MD ENTERED: 08/23/18-123 SP TYPE: INT DISC OTHR DR: Cindy Rosas Zaher MDORDERED: GROSS COPIES TO: Lionel Rosas DO [address] [place] [address] Jose M Coy MD [address] [facility] [address] [place] [address] Simran Aguiar MD [address] [place] [address] [place] [address] PROCEDURES: GROSS (-1125) TISSUES: CERVICAL VERTEBRA, NOS - DISC CLINICAL HI STORY COLLECTION DATE: 08/23/2018 CERVICAL CORD COMPRESSION FIN AL DIAGNOSIS Cervical disc material, C3-4, discectomy: FRAGMENTS OF CA RTILAGE WITH DEGENERATIVE CHANGE DENSE CONNECTIVE TISSUE FRAGMENTS NEGATIVE FOR MALIGNANCY RRB/sm D 67308, 98302 CONTINUED ON NEXT PAGE RUN DATE: 08/24/18 [place] - Lab PAGE 2 RUN TIME: 1544 Specimen Inquiry RUN USER: INTERF CUONG SPEC # : [id number] PATIENT: SEBAS LUNA #[id number] (Cont inued) MACROSCOPIC [facility], labeled with the patient's name, and identified as "cervical disc". It con sists of multiple white-garcia rubbery fragments of tissue with possible bone and measuring 3.0 x 2.5 x 0.4 cm in aggregate. Samples of the specimen are submi tted for decalcification and follow-up microscopic evaluation in a single cammie ette. GROSS PERFORMED AT [facility] [address] [place] [address] [phone] MICROSCOPIC All of the stains, including any controls performed, sta in appropriately. MICROSCOPIC PERFORMED AT [facility] [address] [place] [address] (P) PERFORMING SITE Diagnosis performed at: [facility] [address] [place] [address] Signed SIGNATURE ON FILE Robert Bustillo MD 08/24/18 1544 END OF REPORT - XR C-SPINE 2-3 [id number] 13:17:00 FAX: Lionel Kim [phone] [place]: B St: FAX: Jose M Kowalski MD [phone] FAX: Nacho Perry MD [phone] Name: SEBAS LUNA [facility] : 1970 Age/S: 48/M [facility] [facility] Unit #: [id number] Loc: [place] [place] [address] Phys: Jose M Coy MD Acct: [id number] Dis Date: Status: ADM IN ONE #: [phone] Exam Date: 08/24/2018 1210 FAX #: [phone] Reason: Status post fusion EXAMS: CPT CODE: [id number] XR C-SPINE 2-3 VIEWS 62856 TECHNIQUE: 2 v iews cervical spine COMPARISON: None provided. FI NDINGS: Postsurgical changes right neck. Left subclavian catheter. Congestion. Cervical spine fusion C3/C4 with anatomic alignment. Preverte bral soft tissue fullness likely postsurgical change. IMPR ESSION: Postsurgical changes right neck. Left subclavian freda ter. Congestion. Cervical spine fusion C3/C4 with anatomic alignment. Pr evertebral soft tissue fullness likely postsurgical change. at 1317 Reported and signed by: Ian Lind M.D. CC: Megan Rosas DO; Jose M Coy MD; Nacho Feng Technologist: RT BRANDON(R); Suki Mart(R) Trnscrd Date/Time/By: 08/24/2018 (8484) : By: Sharath [facility] Print D/T: S: 08/24/2018 (3938) PAGE 1 Signed Report CREATINE KINASE (CK)2018-08-23 23:44:00* Test Item Value Reference Range Comments CREATINE KINASE (CK) (test code=CK) 49 IUnit/L 26-208 PROTHROMBIN [id number] 08:00:00* Test Item Value Reference Range Comments PROTHROMBIN TIME PATIENT (test code=PTP) 13.5 seconds 9.0-14.0 INTERNATIONAL NORMAL RATIO (test code=INR) 1.2 0.8-1.2 The therapeutic range for oral anticoagulant therapy formost indications is an international normalized ratio (INR)of between 2.0 and 3.0. The recommended therapeutic INRrange for various clinical situations is listed below: Clinical Situation INR range Pulmonary e mbolism treatment (2.0-3.0)Venous thrombosis treatmentVenous thrombosis prophylaxis (high risk surgery)Prevention of systemic embolism from: Acute myocardial infarction Valvular heart disease Atrial fibrillation Mechanical prosthetic heart valves (2.5-3.5) IS PATIENT ON ANTICOAGULANTS? YLIST ANTICOAGULANTS LOVENOXSPECIMEN COMMENTS: 08/22/18 08:43COMMENTS TO TELEGRAPH MESSENGER: SCHEDULED FOR SURGERY AT 08:00SPECIMEN C OMMENTS: LAST DOSE 08/22/18 08:43THROMBOPLASTIN TIME [id number] 08:00:00* Test Item Value Reference Range Comments THROMBOPLASTIN TIME PARTIAL (test code=PTT) 29.1 seconds 25.0-36.5 IS PATIENT ON ANTICOAGULANTS? YLIST ANTICOAGULANTS LOVENOXSPECIMEN COMMENTS: 08/22/18 08:43COMMENTS TO TELEGRAPH MESSENGER: SCHEDULED FOR SURGERY AT 08:00SPECIMEN C OMMENTS: LAST DOSE 08/22/18 08:43PROTHROMBIN [id number] 22:58:00* Test Item Value Reference Range Comments PROTHROMBIN TIME PATIENT (test code=PTP) 18.9 seconds 9.0-14.0 INTERNATIONAL NORMAL RATIO (test code=INR) 1.6 0.8-1.2 The therapeutic range for oral anticoagulant therapy formost indications is an international normalized ratio (INR)of between 2.0 and 3.0. The recommended therapeutic INRrange for various clinical situations is listed below: Clinical Situation INR range Pulmonary e mbolism treatment (2.0-3.0)Venous thrombosis treatmentVenous thrombosis prophylaxis (high risk surgery)Prevention of systemic embolism from: Acute myocardial infarction Valvular heart disease Atrial fibrillation Mechanical prosthetic heart valves (2.5-3.5) 08/20/182128.IS PATIENT ON ANTICOAGULANTS? NTHROMBOPLASTIN TIME PARTIAL 2018-08-20 22:58:00* Test Item Value Reference Range Comments THROMBOPLASTIN TIME PARTIAL (test code=PTT) 39.2 seconds 25.0-36.5 08/20/182128.IS PATIENT ON ANTICOAGULANTS? NCBC W/AUTO [id number] 22:06:00 * Test Item Value Reference Range Comments WHITE BLOOD CELL (test code=WBC) 9.4 K/mm3 4.5-12.5 RED BLOOD CELL (test code=RBC) 3.86 mill/mm3 4.0-5.8 HEMOGLOBIN (test code=HGB) 9.5 gram/dL 13.0-17.5 HEMATOCRIT (test code=HCT) 31.9 % 42.0-52.0 MEAN CELL VOLUME (test code=MCV) 82.6 fL 80-98 MEAN CELL HGB (test code=MCH) 24.6 picogram 27.0-33.0 MEAN CELL HGB CONCETRATION (test code=MCHC) 29.8 gram/dL 33.0-36.0 RED CELL DISTRIBUTION WIDTH (test code=RDW) 18.5 % 11.6-16.2 RED CELL DISTRIBUTION WIDTH SD (test code=RDW-SD) 55.0 fL 37.0-51.0 PLATELET COUNT (test code=PLT) 297 K/mm3 150-450 MEAN PLATELET VOLUME (test code=MPV) 10.7 fL 6.7-11.0 NEUTROPHIL % (test code=NT%) 56.2 % 39.0-69.0 IMMATURE GRANULOCYTE % (test code=IG%) 0.3 % 0.0-5.0 LYMPHOCYTE % (test code=LY%) 28.0 % 25.0-55.0 MONOCYTE % (test code=MO%) 6.5 % 0.0-10.0 EOSINOPHIL % (test code=EO%) 8.5 % 0.0-5.0 BASOPHIL % (test code=BA%) 0.5 % 0.0-1.0 NUCLEATED RBC % (test code=NRBC%) 0.0 % 0-0 NEUTROPHIL # (test code=NT#) 5.26 K/mm3 1.8-7.7 IMMATURE GRANULOCYTE # (test code=IG#) 0.03 x10 3/uL 0-0.03 LYMPHOCYTE # (test code=LY#) 2.62 K/mm3 1.0-5.0 MONOCYTE # (test code=MO#) 0.61 K/mm3 0-0.8 EOSINOPHIL # (test code=EO#) 0.80 K/mm3 0.0-0.5 BASOPHIL # (test code=BA#) 0.05 K/mm3 0.0-0.2 NUCLEATED RBC # (test code=NRBC#) 0.00 K/mm3 0.0-0.1 MANUAL DIFF REQUIRED (test code=MDIFF) NO, ONLY SCAN NEEDED DIFFERENTIAL [id number] 22:06:00* Test Item Value Reference Range Comments STAIN ACCEPTABILITY (test code=STN ACCEPTABLE) STAIN ACCEPTABLE HYPOCHROMIA (test code=HYPO) 1+ POIKILOCYTOSIS (test code=POIK) 1+ ANISOCYTOSIS (test code=ANISO) 1+ PLATELET ESTIMATE (test code=PLTEST) ADEQUATE PLATELET MORPHOLOGY (test code=PLTMORPH) NORMAL BASIC METABOLIC [id number] 21:28:00* Test Item Value Reference Range Comments SODIUM (test code=NA) 139 mmol/L 136-145 POTASSIUM (test code=K) 3.9 mmol/L 3.5-5.1 CHLORIDE (test code=CL) 105.0 mmol/L 98-107 CARBON DIOXIDE (test code=CO2) 29.0 mmol/L 21-32 ANION GAP (test code=GAP) 8.9 10-20 GLUCOSE (test code=GLU) 107 mg/dL 74-106 BLOOD UREA NITROGEN (test code=BUN) 20 mg/dL 7-18 GLOMERULAR FILTRATION RATE (test code=GFR) > 60 mL/min >=60 Estimated GFR by using Modified MDRD formula.Chronic kidney disease is defined as either kidney damageor GFR <60 mL/min/1.73 m2 for >3 months. CREATININE (test code=CREAT) 0.60 mg/dL 0.7-1.3 BUN/CREATININE RATIO (test code=BUN/CREA) 33.3 10-20 CALCIUM (test code=CA) 8.3 mg/dL 8.5-10.1 BASIC METABOLIC [id number] 21:21:00* Test Item Value Reference Range Comments SODIUM (test code=NA) 139 mmol/L 136-145 POTASSIUM (test code=K) 3.9 mmol/L 3.5-5.1 CHLORIDE (test code=CL) 105.0 mmol/L 98-107 CARBON DIOXIDE (test code=CO2) mmol/L 21-32 ANION GAP (test code=GAP) 10-20 GLUCOSE (test code=GLU) mg/dL 74-106 BLOOD UREA NITROGEN (test code=BUN) mg/dL 7-18 GLOMERULAR FILTRATION RATE (test code=GFR) mL/min >=60 CREATININE (test code=CREAT) mg/dL 0.7-1.3 BUN/CREATININE RATIO (test code=BUN/CREA) 10-20 CALCIUM (test code=CA) mg/dL 8.5-10.1 CBC W/AUTO [id number] 21:07:00* Test Item Value Reference Range Comments WHITE BLOOD CELL (test code=WBC) 9.4 K/mm3 4.5-12.5 RED BLOOD CELL (test code=RBC) 3.86 mill/mm3 4.0-5.8 HEMOGLOBIN (test code=HGB) 9.5 gram/dL 13.0-17.5 HEMATOCRIT (test code=HCT) 31.9 % 42.0-52.0 MEAN CELL VOLUME (test code=MCV) 82.6 fL 80-98 MEAN CELL HGB (test code=MCH) 24.6 picogram 27.0-33.0 MEAN CELL HGB CONCETRATION (test code=MCHC) 29.8 gram/dL 33.0-36.0 RED CELL DISTRIBUTION WIDTH (test code=RDW) 18.5 % 11.6-16.2 RED CELL DISTRIBUTION WIDTH SD (test code=RDW-SD) 55.0 fL 37.0-51.0 PLATELET COUNT (test code=PLT) 297 K/mm3 150-450 MEAN PLATELET VOLUME (test code=MPV) 10.7 fL 6.7-11.0 NEUTROPHIL % (test code=NT%) 56.2 % 39.0-69.0 IMMATURE GRANULOCYTE % (test code=IG%) 0.3 % 0.0-5.0 LYMPHOCYTE % (test code=LY%) 28.0 % 25.0-55.0 MONOCYTE % (test code=MO%) 6.5 % 0.0-10.0 EOSINOPHIL % (test code=EO%) 8.5 % 0.0-5.0 BASOPHIL % (test code=BA%) 0.5 % 0.0-1.0 NUCLEATED RBC % (test code=NRBC%) 0.0 % 0-0 NEUTROPHIL # (test code=NT#) 5.26 K/mm3 1.8-7.7 IMMATURE GRANULOCYTE # (test code=IG#) 0.03 x10 3/uL 0-0.03 LYMPHOCYTE # (test code=LY#) 2.62 K/mm3 1.0-5.0 MONOCYTE # (test code=MO#) 0.61 K/mm3 0-0.8 EOSINOPHIL # (test code=EO#) 0.80 K/mm3 0.0-0.5 BASOPHIL # (test code=BA#) 0.05 K/mm3 0.0-0.2 NUCLEATED RBC # (test code=NRBC#) 0.00 K/mm3 0.0-0.1 MANUAL DIFF REQUIRED (test code=MDIFF) NO, ONLY SCAN NEEDED DIFFERENTIAL [id number] 21:07:00* Test Item Value Reference Range Comments STAIN ACCEPTABILITY (test code=STN ACCEPTABLE) CABOT RINGS (test code=CAB) MORPHOLOGY COMMENT (test code=MOC) PLATELET ESTIMATE (test code=PLTEST) PLATELET MORPHOLOGY (test code=PLTMORPH) CBC W/AUTO [id number] 21:07:00* Test Item Value Reference Range Comments WHITE BLOOD CELL (test code=WBC) 9.4 K/mm3 4.5-12.5 RED BLOOD CELL (test code=RBC) 3.86 mill/mm3 4.0-5.8 HEMOGLOBIN (test code=HGB) 9.5 gram/dL 13.0-17.5 HEMATOCRIT (test code=HCT) 31.9 % 42.0-52.0 MEAN CELL VOLUME (test code=MCV) 82.6 fL 80-98 MEAN CELL HGB (test code=MCH) 24.6 picogram 27.0-33.0 MEAN CELL HGB CONCETRATION (test code=MCHC) 29.8 gram/dL 33.0-36.0 RED CELL DISTRIBUTION WIDTH (test code=RDW) 18.5 % 11.6-16.2 RED CELL DISTRIBUTION WIDTH SD (test code=RDW-SD) 55.0 fL 37.0-51.0 PLATELET COUNT (test code=PLT) 297 K/mm3 150-450 MEAN PLATELET VOLUME (test code=MPV) 10.7 fL 6.7-11.0 NEUTROPHIL % (test code=NT%) 56.2 % 39.0-69.0 IMMATURE GRANULOCYTE % (test code=IG%) 0.3 % 0.0-5.0 LYMPHOCYTE % (test code=LY%) 28.0 % 25.0-55.0 MONOCYTE % (test code=MO%) 6.5 % 0.0-10.0 EOSINOPHIL % (test code=EO%) 8.5 % 0.0-5.0 BASOPHIL % (test code=BA%) 0.5 % 0.0-1.0 NUCLEATED RBC % (test code=NRBC%) 0.0 % 0-0 NEUTROPHIL # (test code=NT#) 5.26 K/mm3 1.8-7.7 IMMATURE GRANULOCYTE # (test code=IG#) 0.03 x10 3/uL 0-0.03 LYMPHOCYTE # (test code=LY#) 2.62 K/mm3 1.0-5.0 MONOCYTE # (test code=MO#) 0.61 K/mm3 0-0.8 EOSINOPHIL # (test code=EO#) 0.80 K/mm3 0.0-0.5 BASOPHIL # (test code=BA#) 0.05 K/mm3 0.0-0.2 NUCLEATED RBC # (test code=NRBC#) 0.00 K/mm3 0.0-0.1 MANUAL DIFF REQUIRED (test code=MDIFF) NO, ONLY SCAN NEEDED DIFFERENTIAL [id number] 21:07:00* Test Item Value Reference Range Comments STAIN ACCEPTABILITY (test code=STN ACCEPTABLE) CABOT RINGS (test code=CAB) MORPHOLOGY COMMENT (test code=MOC) PLATELET ESTIMATE (test code=PLTEST) PLATELET MORPHOLOGY (test code=PLTMORPH) CBC W/AUTO [id number] 21:07:00* Test Item Value Reference Range Comments WHITE BLOOD CELL (test code=WBC) 9.4 K/mm3 4.5-12.5 RED BLOOD CELL (test code=RBC) 3.86 mill/mm3 4.0-5.8 HEMOGLOBIN (test code=HGB) 9.5 gram/dL 13.0-17.5 HEMATOCRIT (test code=HCT) 31.9 % 42.0-52.0 MEAN CELL VOLUME (test code=MCV) 82.6 fL 80-98 MEAN CELL HGB (test code=MCH) 24.6 picogram 27.0-33.0 MEAN CELL HGB CONCETRATION (test code=MCHC) 29.8 gram/dL 33.0-36.0 RED CELL DISTRIBUTION WIDTH (test code=RDW) 18.5 % 11.6-16.2 RED CELL DISTRIBUTION WIDTH SD (test code=RDW-SD) 55.0 fL 37.0-51.0 PLATELET COUNT (test code=PLT) 297 K/mm3 150-450 MEAN PLATELET VOLUME (test code=MPV) 10.7 fL 6.7-11.0 NEUTROPHIL % (test code=NT%) 56.2 % 39.0-69.0 IMMATURE GRANULOCYTE % (test code=IG%) 0.3 % 0.0-5.0 LYMPHOCYTE % (test code=LY%) 28.0 % 25.0-55.0 MONOCYTE % (test code=MO%) 6.5 % 0.0-10.0 EOSINOPHIL % (test code=EO%) 8.5 % 0.0-5.0 BASOPHIL % (test code=BA%) 0.5 % 0.0-1.0 NUCLEATED RBC % (test code=NRBC%) 0.0 % 0-0 NEUTROPHIL # (test code=NT#) 5.26 K/mm3 1.8-7.7 IMMATURE GRANULOCYTE # (test code=IG#) 0.03 x10 3/uL 0-0.03 LYMPHOCYTE # (test code=LY#) 2.62 K/mm3 1.0-5.0 MONOCYTE # (test code=MO#) 0.61 K/mm3 0-0.8 EOSINOPHIL # (test code=EO#) 0.80 K/mm3 0.0-0.5 BASOPHIL # (test code=BA#) 0.05 K/mm3 0.0-0.2 NUCLEATED RBC # (test code=NRBC#) 0.00 K/mm3 0.0-0.1 MANUAL DIFF REQUIRED (test code=MDIFF) NO, ONLY SCAN NEEDED DIFFERENTIAL [id number] 21:07:00* Test Item Value Reference Range Comments STAIN ACCEPTABILITY (test code=STN ACCEPTABLE) MORPHOLOGY COMMENT (test code=MOC) PLATELET ESTIMATE (test code=PLTEST) PLATELET MORPHOLOGY (test code=PLTMORPH) CBC W/AUTO [id number] 21:07:00* Test Item Value Reference Range Comments WHITE BLOOD CELL (test code=WBC) 9.4 K/mm3 4.5-12.5 RED BLOOD CELL (test code=RBC) 3.86 mill/mm3 4.0-5.8 HEMOGLOBIN (test code=HGB) 9.5 gram/dL 13.0-17.5 HEMATOCRIT (test code=HCT) 31.9 % 42.0-52.0 MEAN CELL VOLUME (test code=MCV) 82.6 fL 80-98 MEAN CELL HGB (test code=MCH) 24.6 picogram 27.0-33.0 MEAN CELL HGB CONCETRATION (test code=MCHC) 29.8 gram/dL 33.0-36.0 RED CELL DISTRIBUTION WIDTH (test code=RDW) 18.5 % 11.6-16.2 RED CELL DISTRIBUTION WIDTH SD (test code=RDW-SD) 55.0 fL 37.0-51.0 PLATELET COUNT (test code=PLT) 297 K/mm3 150-450 MEAN PLATELET VOLUME (test code=MPV) 10.7 fL 6.7-11.0 NEUTROPHIL % (test code=NT%) 56.2 % 39.0-69.0 IMMATURE GRANULOCYTE % (test code=IG%) 0.3 % 0.0-5.0 LYMPHOCYTE % (test code=LY%) 28.0 % 25.0-55.0 MONOCYTE % (test code=MO%) 6.5 % 0.0-10.0 EOSINOPHIL % (test code=EO%) 8.5 % 0.0-5.0 BASOPHIL % (test code=BA%) 0.5 % 0.0-1.0 NUCLEATED RBC % (test code=NRBC%) 0.0 % 0-0 NEUTROPHIL # (test code=NT#) 5.26 K/mm3 1.8-7.7 IMMATURE GRANULOCYTE # (test code=IG#) 0.03 x10 3/uL 0-0.03 LYMPHOCYTE # (test code=LY#) 2.62 K/mm3 1.0-5.0 MONOCYTE # (test code=MO#) 0.61 K/mm3 0-0.8 EOSINOPHIL # (test code=EO#) 0.80 K/mm3 0.0-0.5 BASOPHIL # (test code=BA#) 0.05 K/mm3 0.0-0.2 NUCLEATED RBC # (test code=NRBC#) 0.00 K/mm3 0.0-0.1 MANUAL DIFF REQUIRED (test code=MDIFF) NO, ONLY SCAN NEEDED DIFFERENTIAL [id number] 21:07:00* Test Item Value Reference Range Comments STAIN ACCEPTABILITY (test code=STN ACCEPTABLE) CABOT RINGS (test code=CAB) MORPHOLOGY COMMENT (test code=MOC) PLATELET ESTIMATE (test code=PLTEST) PLATELET MORPHOLOGY (test code=PLTMORPH) - MRI LOW EXT W WO CONT [id number] 17:29:00 FAX: Lionel Kim [phone] [place]: St: [facility] FAX: Jose M Kowalski MD [phone] Name: SEBAS LUNA [facility] : 1970 Age/S: 48/M [address] Unit #: [id number] Loc: Christina7 [place] [address] Phys: Jose M Coy MD Acct: [id number] Dis Date: Status: ADM IN PHONE #: [phone] Exam Date: 08/20/2018 1625 FAX #: [phone] Reason: r/o absces wrounf sciatic nerve EXAMS: CPT CODE: [id number] [place] [id number] REASON FOR EXAM: r/o absces wrounf sciatic nerve Exam Order Date: 08/20/2018 9:03 AM Attending MJuan Carlos: Jose M Coy MD Comparison: Procedure: - MRI LOW EXT W WO CONT LT FINDINGS: Multiplanar images of the left hip were obtained in in T1, T2, and proton density with fat saturation. IV gadolinium was given. The osseous structures are intact without evidence of osteomyelitis. No abnormal enhancement around the sciatic nerve. Soft tissue cellulitis in the lateral aspect of the left thigh and abnormal edema of the quadricep muscles suggestive of myositis. No focal abscess or fluid c ollection. Small (2.5 cm inflammatory lymph lymph nodes seen within the l eft inguinal region IMPRESSION: Nonspecific subcutaneous celluli tis and myositis/edema of the quadricep muscles. No evidence of focal a bscess or fluid collection. No evidence of abscess along the course of the sciatic nerve Electronically Signed by Montse Mireles on 0 08/20/2018 at 1729 Reported and signed by: Xavi Mireles M.D. CC: [facility]; Jose M Coy MD Techno logist: Chaim Mart(Andre)(MR) Trnscrd Date/Time /By: 08/20/2018 (1720) : By: LacyL Orig Print D/T: S: 08/20/2018 ( 5040) PAGE 1 Signed Report - MRI T-SPINE W/O [id number] 16:40:00 FAX: Lionel Kim [phone] [place]: B St: ADM FAX: Jose M Kowalski MD [phone] Name: SEBAS LUNA [facility] : 1970 Age/S: 48/M [address] Unit #: [id number] Loc: V[address] [place] [address] Phys: Jose M Coy MD Acct: [id number] Dis Date: Status: ADM IN PHONE #: [phone] Exam Date: 08/20/2018 2881 FAX #: [phone] Reason: r/o cord compression EXAMS: CPT CODE: [id number] MRI T-SPINE W/O CONT 54118 REASON FOR EXAM: r/o cord compression Exam Order Date: 08/20/2018 9:03 AM Attending Montse: Jose M Coy MD Comparison: Procedure: - MRI T-SPINE W/O CONT FINDINGS: Sagittal and axial images of the thoracic spine were obtained in in T1, T2, and proton density with fat saturation. No IV gadolinium was given. The sagittal images show within normal alignment of the th oracic spine. The disc spaces are maintained. No evidence of diskitis or osteomyelitis. A 1 cm hyperdense lesion on T2 and T1 suggestive of h emangioma. The axial images show no evidence of cord compression. The cord is unremarkable without evidence of intramedullary mass. IMPRESSION: T10-11: High-grade broad-based disc bulge w ith mild central canal stenosis from a combination of disc herniation an d congenital osseous stenosis. Moderate to severe narrowing of bilatera l neural foramen T11-12: Mild broad-based disc bulge with minimal centra l canal stenosis. Minimal narrowing of bilateral neural foramen at [facility] Reported and signed by: Xavi Mireles M.D. CC: Lionel Rosas DO; Jose M Coy MD Technologist: Chaim Zhu)() Trnscrd Date/Time/By: 08/20/2018 ([facility]) : By: Ham.VTL Orig Print D/T: S: 08/20/2018 (1196) PAGE 1 Signed Report - MRI C-SPINE W/O [id number] 15:46:00 FAX: Lionel Kim [phone] [place]: St: [facility] FAX: Jose M Kowalski MD [phone] Name: SEBAS LUNA [facility] : 1970 Age/S: 48/M [address] Unit #: [id number] Loc: [address] [address] Phys: Jose M Coy MD Acct: [id number] Dis Date: Status: ADM IN PHONE #: [phone] Exam Date: 08/20/2018 1530 FAX #: [phone] Reason: r/o cord compression EXAMS: CPT CODE: [id number] MRI C-SPINE W/O CONT 35954 HISTORY: Neck pain r/o cord compression TECHNIQUE: Sagittal T1, sagittal T2, sagittal STIR, axial gradient T2, and axial T1 sequences of the cervical spine were acquired without contrast. COMPARISON: None FINDINGS: Limited by motion artifact. Craniocervical and cervicothoracic articulations are appropriate. Straightening of the cervical lordosis. Vertebral body alignment is satisf actory. Vertebral body heights are preserved. Marrow signal is unremarkab le. Cervical cord is normal in caliber and signal. No paraspinal or prever tebral soft tissue abnormality. Visualized posterior fossa contents are un remarkable. C2-C3: No disc bulge or protrusion. No central canal o r foraminal stenosis. C3-C4: Mild disc space loss with disc bulge and marginal osteophytes. Bilateral uncovertebral arthrosis. Left f acet arthrosis. Severe central canal stenosis with flattening of the cervi jesus cord. Severe bilateral foraminal stenosis. C4-C5: Modera te disc bulge with marginal osteophytes. Bilateral uncovertebral arthrosis . Mild bilateral facet arthrosis. Moderate central canal stenosis. Severe bilateral foraminal stenosis. C5-C6: Mild disc bulge with anterior marginal osteophytes. Bilateral uncovertebral arthrosis. Mild left facet arthrosis. Mild central canal stenosis. Moderate bilateral foraminal steno sis. C6-C7: Moderate disc bulge with anterior marginal osteophytes . Bilateral uncovertebral arthrosis. Mild central canal stenosis. Severe bilateral foraminal stenosis. C7-T1: No disc bulge or protrus ion. Mild bilateral facet arthrosis. No central canal stenosis. Severe val ateral foraminal stenosis. IMPRESSION: Limited by motion artifact. Multilevel cervical degenerative disc PAGE 1 Signed Report (CONTINUED) FAX: Lionel Kim [phone] [place]: St: ADM FAX: Jose M Kowalski MD [phone] Name: SEBAS LUNA [facility]AR[facility]AAlicia [facility]er [facility] : 1970 Age/S: 48/M [address] Unit #: [id number] Loc: V.[address] [place] [address] Phys: Jose M Coy MD Acct: [id number] Dis Date: Status: ADM IN PHONE #: [phone] Exam Date: 08/20/2018 1530 FAX #: [phone] Reason: r/o cord compression EXAMS: CPT CODE: [id number] MRI C-SPINE W/O CONT 36219 < Continued> disease and spondylosis. C3-C4: Severe central canal stenosis with flattening of the cervical cord. Severe bilateral foraminal stenosis. C4-C5: Moderate central canal stenosis. Severe bilateral foraminal stenosis. C5-C6: Mild central canal stenosis. Moderate bilateral foraminal stenosis. C6-C7: Mild central canal stenosis. Severe bilateral foraminal stenosis. C7-T1: No central canal stenosis. Severe bilateral foraminal stenosis. at 1546 Reported and signed by: Sheila Velasco D.O. CC: Lionel Rosas DO; Jose M Coy MD Technologist: Chaim Zhu)(MR) Trnscrd Date/Time/By: 08/20/2018 (7745) : By: [email or web address] Orig Print D/T: S: 08/20/2018 (4695) PAGE 2 Signed Report - MRI L-SPINE W WO CON 2018-08-17 08:33:00 FAX: Nacho Perry MD [phone] [place]: St: DEP Name: SEBAS OLIVA [facility] : [birth year] Age/S: 48/M [address] [place] [address] Unit #: [id number] Loc: [place] [address] Phys: Nacho Feng MD Acct: [id number] Dis Date: Status: DEP CLI PHONE #: [phone] Exam Date: 08/16/2018 1649 FAX #: [phone] Reason: LEFT LEG PARESIS EXAMS: CPT CODE: [id number] MRI L-SPINE W WO CON 33787 Clinical Indication: Left leg pare sis. Comparison: CT lumbar spine 08/04/2018 TECHNIQUE : Multiplanar T1, T2, STIR weighted noncontrast MRI of the lumbar spine is performed without intravenous contrast. FINDINGS: Exam is limited due to the patient's large body habitus. ALIGNMENT : Normal lumbar lordosis. SOFT TISSUES: The anterior and posteri or paraspinal soft tissues are normal. The partially imaged abdomen is unr emarkable. PARASPINAL MUSCULATURE: There is no muscular atrophy. CONUS MEDULLARIS: The conus medullaris terminates at L1. VERTEBRAL BODIES: Laminectomy at L3. Foreshortened pedicles suspected. No acute fracture or abnormal bone marrow signal. DEGE NERATIVE CHANGES: L1-L2: Mildly decreased d isc height and signal. No focal disc protrusion or extrusion. Poste rior disc osteophyte complex flattens the ventral thecal sac. Facet hype rtrophy results in mild bilateral foraminal stenosis. AP dimension of the spinal canal is approximately 7.3 mm. L2-L3: Mildly decreas ed disc height and signal. Posterior disc osteophyte complex and facet hy pertrophy. Facet hypertrophy results in moderate bilateral foraminal steno sis. AP dimension of the spinal canal is approximately 8.3 mm. L3-L4: Mildly to moderately decreased disc height and signal. R ight asymmetric posterior disc osteophyte complex, with superimposed chron ic scar or chronic right subarticular protrusion results in PAGE 1 Signed Report (CONTINUED) FAX: Nacho Fraser i, MD [phone] [place]: St: DEP Name: SEBAS LUNA [facility] : 1970 Age/S: 48/M [address] [place] [address] Unit #: [id number] Loc: [place] [address] Phys: Nacho Feng MD Acct: [id number] Dis Date: Status: DEP CLI PHONE #: [phone] Exam Date: 1649 FAX #: [phone] Reason: LEFT LEG PAR ESIS EXAMS: CPT CODE: [id number] MRI L-SPINE W WO CON 86710 <Continued> effacement of the right lateral recess and crowding of the cauda equina, despite decompression at L3 (series 7, image 18). Facet hypertrophy results in moderate bilateral foraminal stenosis. AP dimension of the spinal canal is approximately 5.4 mm. L4-L5: Mildly decreased disc height and signal. No focal disc protrusion or extrusion. Facet hypertrophy results in mild right and moderate left foraminal stenosis. AP dimension of the spinal canal is approximately 7.6 mm. L5-S1: Mildly decreased disc height and signal. No focal disc protrusion or extrusion. Facet hypertrophy results in mild bilateral foraminal stenosis. AP dimension of the spinal canal is approximately 6.6 mm. IMPRESSION: 1. Limited exam due to the patient's large body habitus. 2. 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 3. Laminectomy at L3, with underlying spinal canal stenosis and effacement of the right lateral recess at L3-L4 possibly due to scar/chronic right subarticular protrusion/posterior disc osteophyte complex. SL: WR3-H at 0833 Reported and signed by: Filipe Davis M.D. PAGE 2 Signed Report (CONTINUED) FAX: Nacho Perry MD [phone] [place]: St: DEP Name: SEBAS LUNA [facility] : 1970 Age/S: 48/M [address] [facility] Unit #: [id number] Loc: [place] [address] Phys: Nacho Feng MD Acct: [id number] Dis Date: Status: DEP CLI PHONE #: [phone] Exam Date: 08/16/2018 1649 FAX #: [phone] Reason: LEFT LEG PARESIS EXAMS: CPT CODE: [id number] MRI L-SPINE W WO CON 08091 <Continued> CC: Nacho Feng MD Technologist: RT Manjeet(R)(MR) Trnscrd Date/Time/By: 08/17/2018 (0833) : By: [email or web address] Orig Print D/T: S: 08/17/2018 (0886) PAGE 3 Signed Report BLOOD UREA [id number] 12:39:00* Test Item Value Reference Range Comments BLOOD UREA NITROGEN (test code=BUN) 26 mg/dL 7-18 [id number] 12:39:00* Test Item Value Reference Range Comments CREATININE (test code=CREAT) 0.6 mg/dL 0.6-1.3 SURGICAL [id number] 08:21:00 RUN DATE: 07/26/18 [facility] *LIVE* PAGE 1 RUN TIME: 08 Specimen Inqui ry RUN USER: INTERFACE PATIENT: SEBAS LUNA ACCT #: [id number] LOC: VikyANGELA U #: [id number] AGE/SX: 48/M ROOM: [facility] RE07/20/18[facility] DR: Nacho Feng MD : [birth year] BED: 1 DIS: STATUS: ADM IN TLOC: SPEC #: [id number] RECD: 07/22/18 STATUS: ROSA NASSAR #: [id number] ODALYS: 07/22/[address]: Nacho Feng MD ENTERED: 07/23/18 SP TYPE: SURG SPEC OTHR DR: Marni Arianne carlos or Family Physician Self Referred Willie Carcamo MD Is sa,Melvin Whitley MD M emon,Todd Stinson MD R eyes,Dieter Cosme Jr, MD DPM Stevie Lara MDORDERED: LEVEL 4 CODES: [id number] - FOOT, NOS COPIES TO: No Primary or Family Physician Self Referred Willie Cleaning MD [address] [facility] [address] [place] [address] YvanMelvin MD [address] [facility] [address] [place] [address] Todd Betts D [address] [place] [address] Kyaw Cruz Jr, MD [address] [place] [address] Dieter Jeffery PM [address] [place] [address] [email or web address] CONTINUED ON NEXT PAGE RUN DATE: 07/26/18 [facility] *LIVE* PAGE 2 RUN TIME: 820 Specimen Veronica castillo RUN USER: INTERFACE SPEC #: [id number] PATIENT: SEBAS LUNA #[id number] (Continued) COPIES TO: (Continued ) Stevie Wood MD [address] [place] [address] Nacho Feng MD [address] [place] [address] PROCEDURES: LEVEL 4 (Incomplete) TISSUES: 1. FOOT, NOS - Bone, left foot, segment FINAL DIAGNOSIS Bone, left foot, segment: Acute osteomyelitis. GROSS AND MICROSCOPIC GROSS EXAMINATION: Received in formalin labeled left foot bone is a 1.5 cm aggregate of bone tissue subm itted in one cassette for decalcification. MICROSCOPIC EXAMINATION: Sectio ns of the left foot bone reveal portions of bone with acute osteomyelitis. POST-OP DIAGNOSIS Ulcer, infe cted left foot PRE-OP DIAGNOSIS Ulcer, infected left foot Signed SIGNATURE ON FILE Timmy Gomes DO 07/26/18 0821 END OF REPORT VANCOMYCIN [id number] 14:35:00* Test Item Value Reference Range Comments VANCOMYCIN TROUGH (test code=VANCT) 17.4 mcg/mL 10.0-20.0 10-15 mcg/mL - Cellulitis, Urinary Tract Infection. 15-20 mcg/mL - Bacteremia, Infective Endocarditis, Meningitis, Osteomyelitis, Pneumonia, Severe Skin/Soft- Tissue Infection, Spinal Abscess. COMMENTS: DRAW 30MIN BEFORE 1400 DOSE 07/24, HOLD >21 PHARMACY DOSING- XR CHEST 1 [id number] 09:00:00 FAX: Dieter Barba DPM [phone] [place]: St: [facility] FAX: Nacho Perry MD [phone] Name: SEBAS LUNA [facility] : 1970 Age/S: 48/M [address] [place] [address] Unit #: [id number] Loc: G.55[address] [facility] [place] [address] Phys: Dieter Jeffery DPM Acct: [id number] Dis Date: Status: ADM IN PHONE #: [phone] Exam Date: 07/24/2018 0859 FAX #: [phone] Reason: MORNING PROCEDURE EXAMS: CPT CODE: [id number] XR CHEST 1 V [address]1038 CHEST, SINGLE VIEW HISTORY: Sepsis Comparison made to prior chest x-ray dated 04/17/18. FINDINGS: The lungs are clear. The heart is enlarged. Pulmonary vascularity is normal. No significant pleural fluid. IMPRESSION: Stable cardiomegaly. SL:01 at 0900 Reported and signed by: Bg Verde M.D. CC: Dieter Jeffery DPM; Nacho Feng MD Technologist: Ailyn Baron RT(R) Trnscrd Date/Time/By: 07/24/2018 (09) : By: Sebastián Orig Print D/T: S: 07/24/2018 (0903) PAGE 1 Signed Report CBC W/AUTO [id number] 07:52:00* Test Item Value Reference Range Comments WHITE BLOOD CELL (test code=WBC) 5.41 x10 3/uL 4.5-11.0 RED BLOOD CELL (test code=RBC) 3.62 x10 6/uL 4.00-5.60 HEMOGLOBIN (test code=HGB) 8.8 g/dL 12.5-16.9 HEMATOCRIT (test code=HCT) 30.3 % 37.5-50.7 MEAN CELL VOLUME (test code=MCV) 83.7 fL 81.0-99.0 MEAN CELL HGB (test code=MCH) 24.3 pg 27.0-33.0 MEAN CELL HGB CONCETRATION (test code=MCHC) 29.0 g/dL 33.0-37.0 RED CELL DISTRIBUTION WIDTH CV (test code=RDW) 19.2 % 11.5-14.5 RED CELL DISTRIBUTION WIDTH SD (test code=RDW-SD) 57.1 fL 37.0-54.0 PLATELET COUNT (test code=PLT) 282 x10 3/uL 150-400 MEAN PLATELET VOLUME (test code=MPV) 10.0 fL 7.0-9.0 NEUTROPHIL % (test code=NT%) 62.3 % 56.0-77.0 IMMATURE GRANULOCYTE % (test code=IG%) 0.4 % 0.0-2.0 LYMPHOCYTE % (test code=LY%) 21.4 % 14.0-32.0 MONOCYTE % (test code=MO%) 11.6 % 4.8-9.0 EOSINOPHIL % (test code=EO%) 4.1 % 0.3-3.7 BASOPHIL % (test code=BA%) 0.2 % 0.0-2.0 NUCLEATED RBC % (test code=NRBC%) 0.0 % 0-0 NEUTROPHIL # (test code=NT#) 3.37 x10 3/uL 2.0-7.6 IMMATURE GRANULOCYTE # (test code=IG#) 0.02 x10 3/uL 0.00-0.03 LYMPHOCYTE # (test code=LY#) 1.16 x10 3/uL 1.0-3.8 MONOCYTE # (test code=MO#) 0.63 x10 3/uL 0.1-0.8 EOSINOPHIL # (test code=EO#) 0.22 x10 3/uL 0.0-0.2 BASOPHIL # (test code=BA#) 0.01 x10 3/uL 0.0-0.2 NUCLEATED RBC # (test code=NRBC#) 0.00 x10 3/uL 0.0-0.1 MANUAL DIFF REQUIRED (test code=MDIFF) NO BASIC METABOLIC [id number] 07:43:00* Test Item Value Reference Range Comments SODIUM (test code=NA) 140 mEq/L 134-147 POTASSIUM (test code=K) 4.2 mEq/L 3.4-5.0 CHLORIDE (test code=CL) 109 mEq/L 100-108 CARBON DIOXIDE (test code=CO2) 27 mEq/L 21-33 ANION GAP (test code=GAP) 8 0-20 GLUCOSE (test code=GLU) 109 mg/dL 70-110 BLOOD UREA NITROGEN (test code=BUN) 25 mg/dL 7-18 GLOMERULAR FILTRATION RATE (test code=GFR) 144.4 95-105 Units of measure=ml/min/1.73 m2 CREATININE (test code=CREAT) 0.6 mg/dL 0.6-1.3 CALCIUM (test code=CA) 8.2 mg/dL 8.0-10.5 PROTHROMBIN [id number] 06:47:00* Test Item Value Reference Range Comments PROTHROMBIN TIME PATIENT (test code=PTP) 15.0 SECONDS 9.3-12.9 INTERNATIONAL NORMAL RATIO (test code=INR) 1.3 0.8-1.2 TARGET INR BY INDICATION Indication INR1. Prophylaxis of venous thrombosis 2.0 - 3.0 (orthopedic surgery), Prophylaxis of venous thrombosis (other than high-risk surgery), Treatment of Deep Vein Thrombosis/Pulmonary Embolism, Prevention of systemic embolism - Tissue heart valves, Acute Myocardial Infarction (to prevent systemic embolism), Valvular heart disease, Atrial Fibrillation, Bileaflet mechanical valve in aortic position.2. Mechanical prosthetic valves (high risk), 2.5 - 3.5 Presence of Lupus Anticoagulant or Antiphospholipid Antibodies, Prevention of systemic embolism - Acute Myocardial Infarction (to prevent recurrent infarct). THROMBOPLASTIN TIME [id number] 06:47:00* Test Item Value Reference Range Comments THROMBOPLASTIN TIME PARTIAL (test code=PTT) 35.9 Seconds 25.0-39.5 Therapeutic Range: 61.8-83.8 Sec Effective 05/11/2013 [id number] 13:19:00* Test Item Value Reference Range Comments PREALBUMIN (test code=PREALB) 10.1 mg/dL 16.0-40.0 VANCOMYCIN [id number] 01:30:00* Test Item Value Reference Range Comments VANCOMYCIN TROUGH (test code=VANCT) 13.1 mcg/mL 10.0-20.0 10-15 mcg/mL - Cellulitis, Urinary Tract Infection. 15-20 mcg/mL - Bacteremia, Infective Endocarditis, Meningitis, Osteomyelitis, Pneumonia, Severe Skin/Soft- Tissue Infection, Spinal Abscess. - XR FOOT 3 + V [id number] 16:02:00 FAX: Dieter Barba DPM [phone] [place]: St: [facility] FAX: Nacho Perry MD [phone] Name: SEBAS LUNA [facility] : 1970 Age/S: 48/M [address] [place] [address] Unit #: [id number] Loc: G.[address] [place] [address] Phys: Dieter Jeffery DPM Acct: [id number] Dis Date: Status: ADM IN PHONE #: [phone] Exam Date: 07/22/2018 1544 FAX #: [phone] Reason: assess for any more gas in tissues and where pl EXAMS: CPT CODE: [id number] XR FOOT 3 + [place] [address] Study: - XR FOOT 3 + V LT 07/22/2018 2:30 PM Patient Name: SEBAS LUNA MR: [id number] DATE: 07/22/2018 2:30 PM : ; Age: 48 years y/o Male Ordering Physician: Dieter Lyles i, DPM Clinical Indication: assess for any more gas in tissues and where please Comparison: None LEFT FOOT, 3 Vi ews: Severe soft tissue swelling is again seen involving the left foot. There is interval decrease in amount of soft tissue gas adjacent to the 5th metatarsal stump, along the lateral and plantar aspect. Ad jacent probable dressing material is seen. Disuse osteopenia is again seen . The detailed evaluation of the prior noted heterogeneity and lucency wi thin the cuboid bone, proximal portion of the 4th metatarsal, intermediate cuneiform and lateral cuneiform bones is limited on this examination due to decreased penetration. If there is further concern, recom mend follow-up MRI for complete assessment. SL: LISSET [id number] at 1602 Reported and signed by: Juan David Yap D.O. CC: Dieter Jeffery DPM; Josie Feng MD Technologist: Jeanette Zayas RT(R)(M) Trnscrd Date/Time/By: 07/22/2018 (1602) : By: [email or web address] Orig Print D/T: S: 07/22/2018 (9030) PAGE 1 Signed Report CBC W/AUTO DIFF 2018-07-22 11:35:00* Test Item Value Reference Range Comments WHITE BLOOD CELL (test code=WBC) 6.21 x10 3/uL 4.5-11.0 RED BLOOD CELL (test code=RBC) 3.63 x10 6/uL 4.00-5.60 HEMOGLOBIN (test code=HGB) 8.9 g/dL 12.5-16.9 HEMATOCRIT (test code=HCT) 28.5 % 37.5-50.7 MEAN CELL VOLUME (test code=MCV) 78.5 fL 81.0-99.0 MEAN CELL HGB (test code=MCH) 24.5 pg 27.0-33.0 MEAN CELL HGB CONCETRATION (test code=MCHC) 31.2 g/dL 33.0-37.0 RED CELL DISTRIBUTION WIDTH CV (test code=RDW) 18.0 % 11.5-14.5 RED CELL DISTRIBUTION WIDTH SD (test code=RDW-SD) 51.9 fL 37.0-54.0 PLATELET COUNT (test code=PLT) 343 x10 3/uL 150-400 MEAN PLATELET VOLUME (test code=MPV) 10.2 fL 7.0-9.0 NEUTROPHIL % (test code=NT%) 71.0 % 56.0-77.0 IMMATURE GRANULOCYTE % (test code=IG%) 0.3 % 0.0-2.0 LYMPHOCYTE % (test code=LY%) 14.3 % 14.0-32.0 MONOCYTE % (test code=MO%) 10.6 % 4.8-9.0 EOSINOPHIL % (test code=EO%) 3.5 % 0.3-3.7 BASOPHIL % (test code=BA%) 0.3 % 0.0-2.0 NUCLEATED RBC % (test code=NRBC%) 0.0 % 0-0 NEUTROPHIL # (test code=NT#) 4.40 x10 3/uL 2.0-7.6 IMMATURE GRANULOCYTE # (test code=IG#) 0.02 x10 3/uL 0.00-0.03 LYMPHOCYTE # (test code=LY#) 0.89 x10 3/uL 1.0-3.8 MONOCYTE # (test code=MO#) 0.66 x10 3/uL 0.1-0.8 EOSINOPHIL # (test code=EO#) 0.22 x10 3/uL 0.0-0.2 BASOPHIL # (test code=BA#) 0.02 x10 3/uL 0.0-0.2 NUCLEATED RBC # (test code=NRBC#) 0.00 x10 3/uL 0.0-0.1 MANUAL DIFF REQUIRED (test code=MDIFF) NO COMMENTS: CHECK CBC 4 HOURS AFTER COMPLETION OF 2ND UNIT OF PRBCS- SP FLUOROSCOPY 0-60 [id number] 11:00:00 FAX: Nacho Perry MD [phone] [place]: St: ADM Name: SEBAS OLIVA [facility] : [birth year] Age/S: 48/M [address] [place] [address] Unit #: [id number] Loc: G.5523 [place] [address] Phys: Nacho Feng MD Acct: [id number] Dis Date: Status: ADM IN PHONE #: [phone] Exam Date: 07/22/2018 1050 FAX #: [phone] Reason: PICC PLACEMENT EXAMS: CPT CODE: [id number] SP FLUOROSCOPY 0-60 MIN 35405 Procedure fluoroscopy HISTORY: PICC line placement. No comparisons. FIND INGS: Right upper extremity PICC line tip is within the SVC. FLUORO TIME: 0.3 REFERENCE AIR KERMA : 2 mGy IMPRESSION: Adequate right upper extremity PICC line posi tion. SL:01 at 1100 Reported and signed by: Bg Verde M.D. CC: Nacho Feng MD Technol ogist: Inessa Vazquez, RT(R); Janine Lazar RT(R)(CT) Trnscrd Date/Time/ By: 07/22/2018 (1100) : By: Sebastián Orig Print D/T: S: 07/22/2018 (1 103) PAGE 1 Signed Report - XR ABDOMEN 1V (KUB)2018-07-21 20:13:00 FAX: Nacho Perry MD [phone] [place]: St: ADM Name: SEBAS OLIVA [facility] : [birth year] Age/S: 48/M [address] [place] [address] Unit #: [id number] Loc: G.5523 [place] [address] Phys: Nacho Feng MD Acct: [id number] Dis Date: Status: ADM IN PHONE #: [phone] Exam Date: 07/21/20181937 FAX #: [phone] Reason: ABDOMINAL PAIN, NAUSEA, ABDOMINAL DISTENSION EXAMS: CPT CODE: [id number] XR ABDOMEN 1V (KUB) 30615 PROCEDURE: - XR ABDOMEN 1V (KUB) INDICATION: 48 years Male, ABDOMINAL PAIN, NAUSEA, ABDOMINAL DISTENSION. COMPARISON: None. FINDINGS: Nonspecific bowel gas pattern. Moderate volume stool burden. No abnormal calcifica tion. Catheter over the lower pelvis which may represent a suprapubic cat heter. Correlate clinically. IMPRESSION: Constipation SL: MAXIMUS Electronically Signed by Montse Villalta on 019 at 2012 Reported and signed by: Jake Villalta M.D. CC: Nacho Feng MD Technologist: RT Yesenia(R) Trnscrd Da te/Time/By: 07/21/2018 (2012) : By: [email or web address] Orig Print D/T: S: 07/21 (2015) PAGE 1 Signed Report SERUM [id number] 18:58:00* Test Item Value Reference Range Comments SERUM IRON (test code=IRON) 22 mcg/dL 35-150 VITAMIN [id number] 18:58:00* Test Item Value Reference Range Comments VITAMIN B12 (test code=VITB12) 1126 pg/mL 193-986 FOLIC [id number] 18:58:00* Test Item Value Reference Range Comments FOLIC ACID (test code=FOL) 18.7 ng/mL 3.1-17.5 [id number] 18:58:00* Test Item Value Reference Range Comments FERRITIN (test code=MARCIO) 118.9 ng/mL 23.9-336.2 SED RATE [id number] 13:35:00* Test Item Value Reference Range Comments SED RATE WESTERGREN (test code=SEDW) 124 mm/hr 0-15 C REACTIVE [id number] 13:22:00* Test Item Value Reference Range Comments C REACTIVE PROTEIN (test code=CRP) 169.0 MG/L 0.0-2.9 URINALYSIS [id number] 11:10:00* Test Item Value Reference Range Comments UA COLOR (test code=COLU) YELLOW YEL/STRAW UA APPEARANCE (test code=APPU) CLEAR CLEAR UA GLUCOSE DIPSTICK (test code=DGLUU) NEGATIVE NEGATIVE UA BILIRUBIN DIPSTICK (test code=BILU) NEGATIVE NEGATIVE UA KETONE DIPSTICK (test code=KETU) NEGATIVE NEGATIVE UA SPECIFIC GRAVITY (test code=SGU) 1.012 1.005-1.030 UA BLOOD DIPSTICK (test code=MARLENI) 3+ NEGATIVE UA PH DIPSTICK (test code=MIGUEL ANGEL) 5.0 5.0-7.0 UA PROTEIN DIPSTICK (test code=PROU) NEGATIVE NEGATIVE UA UROBILINIOGEN DIPSTICK (test code=URO) 0.2 mg/dL 0.2-1.0 UA NITRITE DIPSTICK (test code=HIREN) NEGATIVE NEGATIVE UA LEUKOCYTE ESTERASE DIPSTICK (test code=LEUU) 2+ NEGATIVE UA WBC (test code=WBCU) >50 WBC/HPF 0-3 UA RBC (test code=RBCU) >50 RBC/HPF 0-3 UA BACTERIA (test code=BACU) TRACE /HPF NONE SEEN UA SQUAMOUS CELLS (test code=SQU) 0-5 /HPF NONE SEEN UA MUCUS (test code=MUCU) TRACE /LPF NONE SEEN BASIC METABOLIC [id number] 06:40:00* Test Item Value Reference Range Comments SODIUM (test code=NA) 136 mEq/L 134-147 POTASSIUM (test code=K) 4.6 mEq/L 3.4-5.0 CHLORIDE (test code=CL) 108 mEq/L 100-108 CARBON DIOXIDE (test code=CO2) 23 mEq/L 21-33 ANION GAP (test code=GAP) 10 0-20 GLUCOSE (test code=GLU) 104 mg/dL 70-110 BLOOD UREA NITROGEN (test code=BUN) 30 mg/dL 7-18 GLOMERULAR FILTRATION RATE (test code=GFR) 80.1 95-105 Units of measure=ml/min/1.73 m2 CREATININE (test code=CREAT) 1.0 mg/dL 0.6-1.3 CALCIUM (test code=CA) 8.3 mg/dL 8.0-10.5 CBC W/AUTO [id number] 06:31:00* Test Item Value Reference Range Comments WHITE BLOOD CELL (test code=WBC) 8.33 x10 3/uL 4.5-11.0 RED BLOOD CELL (test code=RBC) 2.96 x10 6/uL 4.00-5.60 HEMOGLOBIN (test code=HGB) 6.9 g/dL 12.5-16.9 HEMATOCRIT (test code=HCT) 22.5 % 37.5-50.7 MEAN CELL VOLUME (test code=MCV) 76.0 fL 81.0-99.0 MEAN CELL HGB (test code=MCH) 23.3 pg 27.0-33.0 MEAN CELL HGB CONCETRATION (test code=MCHC) 30.7 g/dL 33.0-37.0 RED CELL DISTRIBUTION WIDTH CV (test code=RDW) 18.4 % 11.5-14.5 RED CELL DISTRIBUTION WIDTH SD (test code=RDW-SD) 50.9 fL 37.0-54.0 PLATELET COUNT (test code=PLT) 319 x10 3/uL 150-400 MEAN PLATELET VOLUME (test code=MPV) 10.7 fL 7.0-9.0 NEUTROPHIL % (test code=NT%) 71.5 % 56.0-77.0 IMMATURE GRANULOCYTE % (test code=IG%) 0.4 % 0.0-2.0 LYMPHOCYTE % (test code=LY%) 15.7 % 14.0-32.0 MONOCYTE % (test code=MO%) 10.0 % 4.8-9.0 EOSINOPHIL % (test code=EO%) 2.2 % 0.3-3.7 BASOPHIL % (test code=BA%) 0.2 % 0.0-2.0 NUCLEATED RBC % (test code=NRBC%) 0.0 % 0-0 NEUTROPHIL # (test code=NT#) 5.96 x10 3/uL 2.0-7.6 IMMATURE GRANULOCYTE # (test code=IG#) 0.03 x10 3/uL 0.00-0.03 LYMPHOCYTE # (test code=LY#) 1.31 x10 3/uL 1.0-3.8 MONOCYTE # (test code=MO#) 0.83 x10 3/uL 0.1-0.8 EOSINOPHIL # (test code=EO#) 0.18 x10 3/uL 0.0-0.2 BASOPHIL # (test code=BA#) 0.02 x10 3/uL 0.0-0.2 NUCLEATED RBC # (test code=NRBC#) 0.00 x10 3/uL 0.0-0.1 MANUAL DIFF REQUIRED (test code=MDIFF) NO PROTHROMBIN [id number] 05:39:00* Test Item Value Reference Range Comments PROTHROMBIN TIME PATIENT (test code=PTP) 23.1 SECONDS 9.3-12.9 INTERNATIONAL NORMAL RATIO (test code=INR) 2.0 0.8-1.2 TARGET INR BY INDICATION Indication INR1. Prophylaxis of venous thrombosis 2.0 - 3.0 (orthopedic surgery), Prophylaxis of venous thrombosis (other than high-risk surgery), Treatment of Deep Vein Thrombosis/Pulmonary Embolism, Prevention of systemic embolism - Tissue heart valves, Acute Myocardial Infarction (to prevent systemic embolism), Valvular heart disease, Atrial Fibrillation, Bileaflet mechanical valve in aortic position.2. Mechanical prosthetic valves (high risk), 2.5 - 3.5 Presence of Lupus Anticoagulant or Antiphospholipid Antibodies, Prevention of systemic embolism - Acute Myocardial Infarction (to prevent recurrent infarct). THROMBOPLASTIN TIME [id number] 05:39:00* Test Item Value Reference Range Comments THROMBOPLASTIN TIME PARTIAL (test code=PTT) 34.6 Seconds 25.0-39.5 Therapeutic Range: 61.8-83.8 Sec Effective 05/11/2013 [id number] 21:13:00* Test Item Value Reference Range Comments TROPONIN-I (test code=TROPI) < 0.015 ng/mL 0.000-0.045 Negative: <=0.045 Positive: >=0.046 Correlation with serial results, other cardiac markers andclinical findings is necessary to determine the clinicalsignificance of this result. Results using different methodologies should not be comparedto one another as quantitative results may vary by method. COMMENTS: 3 troponins total (including troponin done in ED)[id number] 18:40:00* Test Item Value Reference Range Comments TROPONIN-I (test code=TROPI) < 0.015 ng/mL 0.000-0.045 Negative: <=0.045 Positive: >=0.046 Correlation with serial results, other cardiac markers andclinical findings is necessary to determine the clinicalsignificance of this result. Results using different methodologies should not be comparedto one another as quantitative results may vary by method. COMMENTS: 3 troponins total (including troponin done in ED)LACTIC ACID REPEAT 2018-07-20 14:06:00* Test Item Value Reference Range Comments LACTIC ACID REPEAT (test code=LACTR) 1.1 mmol/l 0.4-1.9 CBC W/AUTO [id number] 11:47:00* Test Item Value Reference Range Comments WHITE BLOOD CELL (test code=WBC) 11.98 x10 3/uL 4.5-11.0 RED BLOOD CELL (test code=RBC) 3.23 x10 6/uL 4.00-5.60 HEMOGLOBIN (test code=HGB) 7.5 g/dL 12.5-16.9 HEMATOCRIT (test code=HCT) 24.2 % 37.5-50.7 MEAN CELL VOLUME (test code=MCV) 74.9 fL 81.0-99.0 MEAN CELL HGB (test code=MCH) 23.2 pg 27.0-33.0 MEAN CELL HGB CONCETRATION (test code=MCHC) 31.0 g/dL 33.0-37.0 RED CELL DISTRIBUTION WIDTH CV (test code=RDW) 18.6 % 11.5-14.5 RED CELL DISTRIBUTION WIDTH SD (test code=RDW-SD) 50.2 fL 37.0-54.0 PLATELET COUNT (test code=PLT) 414 x10 3/uL 150-400 MEAN PLATELET VOLUME (test code=MPV) 10.5 fL 7.0-9.0 NEUTROPHIL % (test code=NT%) 74.7 % 56.0-77.0 IMMATURE GRANULOCYTE % (test code=IG%) 0.4 % 0.0-2.0 LYMPHOCYTE % (test code=LY%) 13.8 % 14.0-32.0 MONOCYTE % (test code=MO%) 10.0 % 4.8-9.0 EOSINOPHIL % (test code=EO%) 0.8 % 0.3-3.7 BASOPHIL % (test code=BA%) 0.3 % 0.0-2.0 NUCLEATED RBC % (test code=NRBC%) 0.0 % 0-0 NEUTROPHIL # (test code=NT#) 8.96 x10 3/uL 2.0-7.6 IMMATURE GRANULOCYTE # (test code=IG#) 0.05 x10 3/uL 0.00-0.03 LYMPHOCYTE # (test code=LY#) 1.65 x10 3/uL 1.0-3.8 MONOCYTE # (test code=MO#) 1.20 x10 3/uL 0.1-0.8 EOSINOPHIL # (test code=EO#) 0.09 x10 3/uL 0.0-0.2 BASOPHIL # (test code=BA#) 0.03 x10 3/uL 0.0-0.2 NUCLEATED RBC # (test code=NRBC#) 0.00 x10 3/uL 0.0-0.1 MANUAL DIFF REQUIRED (test code=MDIFF) NO RBC [id number] 11:47:00* Test Item Value Reference Range Comments POIKILOCYTOSIS (test code=POIK) SLIGHT ANISOCYTOSIS (test code=ANISO) 1+ MICROCYTOSIS (test code=MICR) FEW TEAR DROP CELLS (test code=TEAR) FEW OVALOCYTES (test code=OVAL) FEW BASIC METABOLIC [id number] 11:38:00* Test Item Value Reference Range Comments SODIUM (test code=NA) 133 mEq/L 134-147 POTASSIUM (test code=K) 4.9 mEq/L 3.4-5.0 CHLORIDE (test code=CL) 104 mEq/L 100-108 CARBON DIOXIDE (test code=CO2) 24 mEq/L 21-33 ANION GAP (test code=GAP) 10 0-20 GLUCOSE (test code=GLU) 103 mg/dL 70-110 BLOOD UREA NITROGEN (test code=BUN) 42 mg/dL 7-18 GLOMERULAR FILTRATION RATE (test code=GFR) 43.4 95-105 Units of measure=ml/min/1.73 m2 CREATININE (test code=CREAT) 1.7 mg/dL 0.6-1.3 CALCIUM (test code=CA) 8.7 mg/dL 8.0-10.5 [id number] 11:38:00* Test Item Value Reference Range Comments TROPONIN-I (test code=TROPI) < 0.015 ng/mL 0.000-0.045 Negative: <=0.045 Positive: >=0.046 Correlation with serial results, other cardiac markers andclinical findings is necessary to determine the clinicalsignificance of this result. Results using different methodologies should not be comparedto one another as quantitative results may vary by method. CBC W/AUTO [id number] 11:23:00* Test Item Value Reference Range Comments WHITE BLOOD CELL (test code=WBC) 11.98 x10 3/uL 4.5-11.0 RED BLOOD CELL (test code=RBC) 3.23 x10 6/uL 4.00-5.60 HEMOGLOBIN (test code=HGB) 7.5 g/dL 12.5-16.9 HEMATOCRIT (test code=HCT) 24.2 % 37.5-50.7 MEAN CELL VOLUME (test code=MCV) 74.9 fL 81.0-99.0 MEAN CELL HGB (test code=MCH) 23.2 pg 27.0-33.0 MEAN CELL HGB CONCETRATION (test code=MCHC) 31.0 g/dL 33.0-37.0 RED CELL DISTRIBUTION WIDTH CV (test code=RDW) 18.6 % 11.5-14.5 RED CELL DISTRIBUTION WIDTH SD (test code=RDW-SD) 50.2 fL 37.0-54.0 PLATELET COUNT (test code=PLT) 414 x10 3/uL 150-400 MEAN PLATELET VOLUME (test code=MPV) 10.5 fL 7.0-9.0 NEUTROPHIL % (test code=NT%) 74.7 % 56.0-77.0 IMMATURE GRANULOCYTE % (test code=IG%) 0.4 % 0.0-2.0 LYMPHOCYTE % (test code=LY%) 13.8 % 14.0-32.0 MONOCYTE % (test code=MO%) 10.0 % 4.8-9.0 EOSINOPHIL % (test code=EO%) 0.8 % 0.3-3.7 BASOPHIL % (test code=BA%) 0.3 % 0.0-2.0 NUCLEATED RBC % (test code=NRBC%) 0.0 % 0-0 NEUTROPHIL # (test code=NT#) 8.96 x10 3/uL 2.0-7.6 IMMATURE GRANULOCYTE # (test code=IG#) 0.05 x10 3/uL 0.00-0.03 LYMPHOCYTE # (test code=LY#) 1.65 x10 3/uL 1.0-3.8 MONOCYTE # (test code=MO#) 1.20 x10 3/uL 0.1-0.8 EOSINOPHIL # (test code=EO#) 0.09 x10 3/uL 0.0-0.2 BASOPHIL # (test code=BA#) 0.03 x10 3/uL 0.0-0.2 NUCLEATED RBC # (test code=NRBC#) 0.00 x10 3/uL 0.0-0.1 MANUAL DIFF REQUIRED (test code=MDIFF) NO RBC [id number] 11:23:00* Test Item Value Reference Range Comments ANISOCYTOSIS (test code=ANISO) CBC W/AUTO [id number] 11:23:00* Test Item Value Reference Range Comments WHITE BLOOD CELL (test code=WBC) 11.98 x10 3/uL 4.5-11.0 RED BLOOD CELL (test code=RBC) 3.23 x10 6/uL 4.00-5.60 HEMOGLOBIN (test code=HGB) 7.5 g/dL 12.5-16.9 HEMATOCRIT (test code=HCT) 24.2 % 37.5-50.7 MEAN CELL VOLUME (test code=MCV) 74.9 fL 81.0-99.0 MEAN CELL HGB (test code=MCH) 23.2 pg 27.0-33.0 MEAN CELL HGB CONCETRATION (test code=MCHC) 31.0 g/dL 33.0-37.0 RED CELL DISTRIBUTION WIDTH CV (test code=RDW) 18.6 % 11.5-14.5 RED CELL DISTRIBUTION WIDTH SD (test code=RDW-SD) 50.2 fL 37.0-54.0 PLATELET COUNT (test code=PLT) 414 x10 3/uL 150-400 MEAN PLATELET VOLUME (test code=MPV) 10.5 fL 7.0-9.0 NEUTROPHIL % (test code=NT%) 74.7 % 56.0-77.0 IMMATURE GRANULOCYTE % (test code=IG%) 0.4 % 0.0-2.0 LYMPHOCYTE % (test code=LY%) 13.8 % 14.0-32.0 MONOCYTE % (test code=MO%) 10.0 % 4.8-9.0 EOSINOPHIL % (test code=EO%) 0.8 % 0.3-3.7 BASOPHIL % (test code=BA%) 0.3 % 0.0-2.0 NUCLEATED RBC % (test code=NRBC%) 0.0 % 0-0 NEUTROPHIL # (test code=NT#) 8.96 x10 3/uL 2.0-7.6 IMMATURE GRANULOCYTE # (test code=IG#) 0.05 x10 3/uL 0.00-0.03 LYMPHOCYTE # (test code=LY#) 1.65 x10 3/uL 1.0-3.8 MONOCYTE # (test code=MO#) 1.20 x10 3/uL 0.1-0.8 EOSINOPHIL # (test code=EO#) 0.09 x10 3/uL 0.0-0.2 BASOPHIL # (test code=BA#) 0.03 x10 3/uL 0.0-0.2 NUCLEATED RBC # (test code=NRBC#) 0.00 x10 3/uL 0.0-0.1 MANUAL DIFF REQUIRED (test code=MDIFF) NO RBC [id number] 11:23:00* Test Item Value Reference Range Comments ANISOCYTOSIS (test code=ANISO) LACTIC ACID [id number] 11:01:00* Test Item Value Reference Range Comments LACTIC ACID POC (test code=LACTP) 2.2 MMOL/L 0.90-1.70 Performed by certified chocolate finisher operator at [facility] - XR FOOT 3 + V [id number] 10:36:00 FAX: Amanuel Garay [phone] [place]: St: REG Name: SEBAS OLIVA [facility] : [birth year] Age/S: 48/M [address] [place] [address] Unit #: [id number] Loc: [place] [address] Phys: Amanuel Garay Acct: [id number] Dis Date: Status: REG ER PHONE #: [phone] Exam Date: 07/20/2018 1022 FAX #: [phone] Reason: L foot wound infection EXAMS: CPT CODE: [id number] XR FOOT 3 + V [place] [address] Study: - XR FOOT 3 + V LT 07/20/2018 9:55 AM Patient Name: SEBAS LUNA MR: [id number] DATE: 07/20/2018 9:55 AM : 1970; Age: 48 years y/o Male Ordering Physician: EDMUNDO Barker Clinical Indication: L foot wound infection Comparison: April 14, 2018 LEFT FOOT, 3 Views: Disuse osteopenia is seen. Severe soft tissue swelling is seen with soft tissue gas in the region of large lateral plantar foot ulce r. Increased heterogeneity and lucency of adjacent cuboid bone, con cerning for underlying worsening osteomyelitis. Unchanged appearance of 5t h metatarsal stump. Increased heterogeneity and lucency of the proximal po rtion of the 4th metatarsal, intermediate cuneiform and lateral cuneiform bones concerning for underlying osteomyelitis. If there is f urther concern, recommend MRI for complete assessment. SL : [id number] at 1036 Reported and signed by: uJan David Yap D.O. CC: Amanuel De La Rosa rn PA Technologist: Ryann Camejo, RT(R) Trnscrd Date/Time/By: 07/20/2018 (1036) : By: alessio [email or web address] Orig Print D/T: S: 07/20/2018 (2313) PAGE 1 Signed Report - MRI LOW EXT W WO CONT [id number] 12:50:00 FAX: Debra Iverson MD [phone] [place]: St: DEP Name: SEBAS OLIVA [facility] : [birth year] Age/S: 48/M [address] [place] [address] Unit #: [id number] Loc: [place] [address] Phys: Debra Haider MD Acct: [id number] Dis Date: Status: DEP CLI PHONE #: [phone] Exam Date: 05/27/2018 1724 FAX #: [phone] Reason: OSTEOMYELITIS Report Has Been Amended EXAMS: CPT CODE: [id number] [place] [id number] Addendum - 05/31/2018 SIGNED 05/31/2018 ADDENDUM: [id number] MRI/MRILEWWORT ADDENDUM: A laterality error was present in the original exam order. This examination has been credited back to the patient and reordered correctly. The correct exam and an amended report can be found with accession #[id number]. No images were reviewed at the time of this addendum. at 1250 Reported and signed by: Joss Bobo M.D. Report Pat ient: SEBAS LUNA. : 1970; Age: 48 years; Gender: Male. M R: [id number]. Ordering physician: Debra Haider MD. MRI R IGHT FOOT WITH AND WITHOUT INTRAVENOUS CONTRAST: HISTORY: Osteomye litis. COMPARISON: MRI left foot 04/15/2018. FINDINGS: Multiplanar multisequence MRI of the right foot was performed before and after intravenous administration of 21 mL of gadolinium based contrast Dot arem. Large lateral plantar midfoot ulcer again noted extending to the cuboid. There is marked surrounding soft tissue induration, edema and enhancement compatible with cellulitis. No abscess. Destructive change of the abutting cuboid noted with bone marrow edema and enhancement compatible with persistent osteomyelitis, at least mildly worse since the previous examination. PAGE 1 Signed Report (CONTINUED) FAX: Debra Iverson MD [phone] [place]: St: DEP Name: SEBAS LUNA [facility] : 1970 Age/S: 48/M [address] [place] [address] Unit #: [id number] Loc: [place] [address] Ph ys: Debra Haider MD Acct: [id number] Dis Date: Status: DEP CLI PHONE #: [phone] Exam Date: 05/27/2018 1724 FAX #: [phone] Reason: OSTEOMYELITIS Report Has Been Amended EXAMS: CPT CODE: [id number] [place] [id number] <Continued> There has also been amputation of proximal 2/3 of 5th metatarsal. Distal 5th metatarsal stump demonstrates persistent cortical thickening, bone marrow and enhancement compatible with persistent acute on chronic osteomyelitis with sparing of 5th metatarsal head. Widening, edema and enhancement of the cuboid-4th metatarsal joint also again noted compatible with septic arthritis. Deformity of 4th metatarsal base is suspicious for pathologic fracture of uncertain chronicity secondary to the osteomyelitis. Osteomyelitis extends to at least mid 4th metatarsal shaft. 1st through 3rd toes are unremarkable. Diffuse degenerative change of right foot noted. Dorsal foot subcutaneous soft tissue induration, edema and enhancement noted compatible with cellulitis. Diffuse muscular edema noted. IMPRESSION: 1. Large lateral plantar mid foot ulcer again noted with marked surrounding cellulitis. No abscess. 2. At least mild worsening of cuboid osteomyelitis. 3. Acute on chronic osteomyelitis of distal 5th metatarsal stump again noted. 4. Persistent septic arthritis of the cuboid-4th metatarsal joint with pathologic fracture of 4th metatarsal base secondary to osteomyelitis, also uncerta in chronicity. Osteomyelitis extends to at least mid 4th metatarsal sha ft. 5. Dorsal foot cellulitis. Diffuse muscular edema. SL: [id number] PAGE 2 Signed Report (CONTINUED) FAX: Debra Iverson MD [phone] [place]: St: DEP Name: LUNASEBAS [facility] : 1970 Age/S: 48/M [address] [place] [address] Unit #: [id number] Loc: [place] [address] Phys: Debra Haider MD Acct: [id number] Dis Date: Status: DEP CLI PHONE #: [phone] Exam Date: 05/27/2018 1724 FAX #: [phone] Reason: OSTEOMYELITIS Report Has Been Amended EXAMS: CPT CODE: [id number] [place] [id number] <Continued> at 1121 Reported and signed by: Gautam Hutton M.D. CC: Debra Haider MD Technologist: Tramaine Edwards, RT(R)(MR) Trnscrd Date/Time/By: 05/28/2018 (112) : By: [email or web address] Orig Print D/T: S: 05/28/2018 (1124) PAGE 3 Signed Report - MRI LOW EXT W WO CONT [id number] 11:14:00 FAX: Debra Iverson MD [phone] [place]: St: DEP Name: SEBAS OLIVA [facility] : [birth year] Age/S: 48/M [address] [place] [address] Unit #: [id number] Loc: [place] [address] Phys: Debra Haider MD Acct: [id number] Dis Date: Status: DEP CLI PHONE #: [phone] Exam Date: 05/27/2018 1710 FAX #: [phone] Reason: FOOT WOUND Report Has Been Amended EXAMS: CPT CODE: [id number] [place] [address] Addendum - 05/31/2018 SIGNED 05/31/2018 ADDENDUM: [id number] MRI/MRILEWWOLT ADDENDUM: The addendum is being issued due to a laterality error in the original report issued on 05/31/2018. The examination performed on 05/27/2018 was that of the patient's left foot, and NOT the right foot as originally reported. No images were reviewed at the time of this addendum. at 1114 R eported and signed by: Joss Bobo M.D. Report Patient: SEBAS LUNA. : 1970; Age: 48 years; Gender: Male. MR: [id number]. Ordering physician: Debra Haider MD. MRI RIGHT FOOT WITH AND WITHOUT INTRAVENOUS CONTRAST: HISTORY: Osteomyelitis. COMPARISON: MRI left foot 04/15/2018. FINDINGS: Multiplan ar multisequence MRI of the right foot was performed before and after intr avenous administration of 21 mL of gadolinium based contrast Dotarem. Large lateral plantar midfoot ulcer again noted extending to the cuboid. There is marked surrounding soft tissue induration, edema and en hancement compatible with cellulitis. No abscess. Destructive change of the abutting cuboid noted with bone marrow edema and enhancement compatibl e with persistent osteomyelitis, at least mildly worse since the previous examination. There has also been amputation of proximal 2/3 of 5 th metatarsal. PAGE 1 Signed Report (CONTINUED) FAX: Debra Iverson MD [phone] [place]: St: DEP ---- Name: SEBAS LUNA [facility] : 1970 Age/S: 48/M [address] [place] [address] Unit #: [id number] Loc: [place] [address] Phys: Debra Rodriguez MD Acct: [id number] Dis Date: Status: DEP CLI PHONE # : [phone] Exam Date: 05/27/2018 1710 FAX #: [phone] Reason: FOOT WOUND Report Has Been Amended EXAMS: CPT CODE: [id number] [place] [address] <Continued> Distal 5th metatarsal stump demonstrates persistent cortical thickening, bone marrow and enhancement compatible with persistent acute on chronic osteomyelitis with sparing of 5th metatarsal head. Widening, edema and enhancement of the cuboid-4th metatarsal joint also again noted compatible with septic arthritis. Deformity of 4th metatarsal base is suspicious for pathologic fracture of uncertain chronicity secondary to the osteomyelitis. Osteomyelitis extends to at least mid 4th metatarsal shaft. 1st through 3rd toes are unremarkable. Diffuse degenerative change of right foot noted. Dorsal foot subcutaneous soft tissue induration, edema and enhancement noted compatible with cellulitis. Diffuse muscular edema noted. IMPRESSION: 1. Large lateral plantar mid foot ulcer again noted with marked surrounding cellulitis. No abscess. 2. At least mild worsening of cuboid osteomyelitis. 3. Acute on chronic osteomyelitis of distal 5th metatarsal stump again noted. 4. Persistent septic arthritis of the cuboid-4th metatarsal joint with pathologic f racture of 4th metatarsal base secondary to osteomyelitis, also uncertai n chronicity. Osteomyelitis extends to at least mid 4th metatarsal shaf t. 5. Dorsal foot cellulitis. Diffuse muscular edema. SL: [id number] at 1103 Reported and signed by: Gautam Hutton M.D. PAGE 2 Signed Report (CONTINUED) FAX: Debra Iverson MD [phone] [place]: St: DEP-------- Name: SEBAS LUNA [facility] : 1969 Age/S: 48/M [address] [place] [address] Unit #: [id number] Loc: [place] [address] Phys: Debra Haider MD Acct: [id number] Dis Date: Status: DEP CLI PHONE #: [phone] Exam Date: 05/27/2018 1710 FAX #: [phone] Reason: FOOT WOUND Report Has Been Amended EXAMS: CPT CODE: [id number] [place] [address] <Continued> CC: Debra Haider MD Technologist: Tramaine Edwards RT(R)(MR) Trnscrd Date/Time/By: 05/31/2018 (2803) : By: [email or web address] Orig Print D/T: S: 05/31/2018 (2275) PAGE 3 Signed Report - MRI LOW EXT W WO CONT [id number] 11:03:00 FAX: Debra Iverson MD [phone] [place]: St: DEP Name: SEBAS OLIVA [facility] : [birth year] Age/S: 48/M [address] [place] [address] Unit #: [id number] Loc: [place] [address] Phys: Debra Haider MD Acct: [id number] Dis Date: Status: DEP CLI PHONE #: [phone] Exam Date: 05/27/2018 1710 FAX #: [phone] Reason: FOOT WOUND EXAMS: CPT CODE: [id number] [place] [address] Patient: SEBAS LUNA. : ; Age: 48 years; Gender: Male. MR: [id number]. Ordering p jacquelinesician: Debra Haider MD. MRI RIGHT FOOT WITH AND WITHOUT INTR AVENOUS CONTRAST: HISTORY: Osteomyelitis. COMPARISON : MRI left foot 04/15/2018. FINDINGS: Multiplanar multisequence MRI of the right foot was performed before and after intravenous administratio n of 21 mL of gadolinium based contrast Dotarem. Large later al plantar midfoot ulcer again noted extending to the cuboid. There is ma rked surrounding soft tissue induration, edema and enhancement compatible with cellulitis. No abscess. Destructive change of the abutting cuboid n oted with bone marrow edema and enhancement compatible with persistent ost eomyelitis, at least mildly worse since the previous examination. There has also been amputation of proximal 2/3 of 5th metatarsal. Distal 5th metatarsal stump demonstrates persistent cortical thickening, bone marrow and enhancement compatible with persistent acute on chronic os teomyelitis with sparing of 5th metatarsal head. Widening, edema and enhancement of the cuboid-4th metatarsal joint also again noted radha tible with septic arthritis. Deformity of 4th metatarsal base is suspicio us for pathologic fracture of uncertain chronicity secondary to the osteom yelitis. Osteomyelitis extends to at least mid 4th metatarsal shaft. 1st through 3rd toes are unremarkable. Diffuse degenerat kelin change of right foot noted. Dorsal foot subcutaneous soft tiss ue induration, edema and enhancement noted compatible with cellulitis. Diffuse muscular edema noted. IMPRESSION: 1. Large lateral plantar mid foot ulcer again noted with marked surrounding cellulitis. No abscess. PAGE 1 Signed Report (CONTINUED) FAX: Debra Iverson MD [phone] [place]: St: DEP Name: SEBAS LUNA [facility] : 1970 Age/S: 48/M [address] [place] [address] Unit #: [id number] Loc: [place] [address] Phys: Debra Haider MD Acct: [id number] Dis Date: Status: DEP CLI PHONE #: [phone] Exam Date: 05/27/2018 1710 FAX #: [phone] Reason: FOOT WOUND EXAMS: CPT CODE: [id number] [place] [address] <Continued> 2. At least mild worsening of cuboid osteomyelitis. 3. Acute on chronic osteomyelitis of distal 5th metatarsal stump again noted. 4. Persistent septic arthritis of the cuboid-4th metatarsal joint with pathologic fracture of 4th metatarsal base s econdary to osteomyelitis, also uncertain chronicity. Osteomyelitis ext ends to at least mid 4th metatarsal shaft. 5. Dorsal foot cellulitis. Diffuse muscular edema. SL: [id number] at 1103 Reported and signed by: Gautam Hutton M.D. CC: Tony Haider MD Technologist: Tramaine Edwards RT(R)(MR) Trnscrd Date/Time/By: 05/31/2018 (1103) : By: [email or web address] Orig Print D/T: S: 05/31/2018 (8829) PAGE 2 Signed Report - MRI LOW EXT W WO CONT [id number] 11:21:00 FAX: Debra Iverson MD [phone] [place]: St: DEP Name: SEBAS OLIVA [facility] Dwight Ellis : [birth year] Age/S: 48/M [address] [place] [address] Unit #: [id number] Loc: [place] [address] Phys: Debra Haider MD Acct: [id number] Dis Date: Status: DEP CLI PHONE #: [phone] Exam Date: 05/27/2018 1725 FAX #: [phone] Reason: OSTEOMYELITIS EXAMS: CPT CODE: [id number] [place] [address] Patient: SEBAS LUNA. : ; Age: 48 years; Gender: Male. MR: [id number]. Ordering p hysician: Debra Haider MD. MRI RIGHT FOOT WITH AND WITHOUT INTR AVENOUS CONTRAST: HISTORY: Osteomyelitis. COMPARISON : MRI left foot 04/15/2018. FINDINGS: Multiplanar multisequence MRI of the right foot was performed before and after intravenous administratio n of 21 mL of gadolinium based contrast Dotarem. Large later al plantar midfoot ulcer again noted extending to the cuboid. There is ma rked surrounding soft tissue induration, edema and enhancement compatible with cellulitis. No abscess. Destructive change of the abutting cuboid n oted with bone marrow edema and enhancement compatible with persistent ost eomyelitis, at least mildly worse since the previous examination. There has also been amputation of proximal 2/3 of 5th metatarsal. Distal 5th metatarsal stump demonstrates persistent cortical thickening, bone marrow and enhancement compatible with persistent acute on chronic os teomyelitis with sparing of 5th metatarsal head. Widening, edema and enhancement of the cuboid-4th metatarsal joint also again noted radha tible with septic arthritis. Deformity of 4th metatarsal base is suspicio us for pathologic fracture of uncertain chronicity secondary to the osteom yelitis. Osteomyelitis extends to at least mid 4th metatarsal shaft. 1st through 3rd toes are unremarkable. Diffuse degenerat kelin change of right foot noted. Dorsal foot subcutaneous soft tiss ue induration, edema and enhancement noted compatible with cellulitis. Diffuse muscular edema noted. IMPRESSION: 1. Large lateral plantar mid foot ulcer again noted with marked surrounding cellulitis. No abscess. PAGE 1 Signed Report (CONTINUED) FAX: Debra Iverson MD [phone] [place]: GC St: DEP Name: SEBAS LUNA [facility] : 1970 Age/S: 48/M [address] [place] [address] Unit #: [id number] Loc: [place] [address] Phys: Debra Haider MD Acct: [id number] Dis Date: Status: DEP CLI PHONE #: [phone] Exam Date: 05/27/2018 1724 FAX #: [phone] Reason: OSTEOMYELITIS EXAMS: CPT CODE: [id number] [place] [address] <Continued> 2. At least mild worsening of cuboid osteomyelitis. 3. Acute on chronic osteomyelitis of distal 5th metatarsal stump again noted. 4. Persistent septic arthritis of the cuboid-4th metatarsal joint with pathologic fracture of 4th metatarsal base s econdary to osteomyelitis, also uncertain chronicity. Osteomyelitis ext ends to at least mid 4th metatarsal shaft. 5. Dorsal foot cellulitis. Diffuse muscular edema. SL: [id number] at 1121 Reported and signed by: Gautam Hutton M.D. CC: Tony Haider MD Technologist: Tramaine Edwards RT(R)() Trnscrd Date/Time/By: 05/28/2018 (1121) : By: [email or web address] Orig Print D/T: S: 05/28/2018 (1126) PAGE 2 Signed Report SURGICAL [id number] 12:58:00 RUN DATE: 04/30/18 [facility] *LIVE* PAGE 1 RUN TIME: 1258 Specimen Inqui ry RUN USER: INTERFACE PATIENT: SEBAS LUNA ACCT #: G [id number] LOC: [facility]yG U #: [id number] AGE/SX: 47/M ROOM: RE07/02/17REG DR: Willie Cleaning MD : 72 BED: DIS: STATUS: [place] [facility]: SPEC #: [id number] RECD: 07/03/17 STATUS: ROSA REQ #: [id number] ODALYS: 07/03/[address] [facility] [address]: Willie Cleaning MD ENTERED: 08/13/17 SP TYPE: SURG SPEC OTHR DR: Nacho Moore MD ORDERED: LEVEL 4 CODES: [id number] - URINARY BLADDER COPIES TO: Willie Cleaning MD [address] [facility] [address] [place] [address] Nacho Feng MD [address] [facility] [address] [place] [address] PROCEDURES: GM LEVEL 4 (Incomplete) TISSUES: 1. URINARY BLADD ER, NOS - Bladder, bx. 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 GROSS AND MICROSCOPIC GROSS EXAMINATION: Received is/are the specimen/s designated with the a ppropriate dimensions and block designation: 1. Bl adder, bx.: 2 segments of pink-garcia tissue, measuring up to 0.1 cm. in greates t dimension each. MICROSCOPIC EXAMINATION: Sections of the bladder biopsy reveal changes of chronic hemor rhagic cystitis with epithelial atypia. The stroma contains a mixed inflammat ory infiltrate and hemorrhage as well as increased blood vessels. The ove rlying epithelium shows atypia and contains mixed inflammation. CONTINUED ON NEXT PAGE RUN DATE: 04/30/18 [facility] *LIVE* PAGE 2 RUN TIME: 1258 Specimen Inquiry RUN USER: INTERF CUONG SPEC # : [id number] PATIENT: LUNASEBAS #[id number] (Cont inued) POST-OP DIAGNOSIS Bladder lesions PRE-OP D IAGNOSIS Bladder lesions REVIEWED BY: Signed SIGN ATURE ON FILE Mora Gomes MD 04/30/18 1258 -------- ---- END OF REPORT SURGICAL [id number] 08:11:00 RUN DATE: 04/22/18 [facility] *LIVE* PAGE 1 RUN TIME: 810 Specimen Inqui ry RUN USER: INTERFACE PATIENT: SEBAS LUNA ACCT #: G [id number] LOC: [facility] U #: [id number] AGE/SX: 48/M ROOM: [facility] RE04/14/18REG DR: Nacho Feng MD : 72 BED: 1 DIS: STATUS: ADM IN TLOC: SPEC #: [id number] RECD: 04/20/18 STATUS: ROSA RE #: [id number] ODALYS: 04/20/[address]: Nacho Feng MD ENTERED: 04/22/18 SP TYPE: SURG SPEC OTHR DR: No Arianne carlos or Family Physician Self Referred Debra Mckay MD, Sean A DPM Termin Heber lara MDORDERED: GM LEVEL 4 CODES: [id number] - BONE OF FOOT, N COPIES TO: No Prima or Family Physician Self Referred Debra Haider MD [address] [place] [address] Dieter Jeffery DPM [address] [place] [address] [email or web address] Nacho Feng MD [address] [place] [address] [address] [place] [address] Heber Rossi MD [address] [place] [address] 98 PROCEDURES: GM LEVEL 4 (Incomplete) TISSUES: 1. BONE OF FOOT, NOS - Bone, left mid foot, segment CONTINUED ON NEXT PAGE RUN DATE: 04/22/18 [facility] *LIVE* PAGE 2 RUN TIME: 810 Specimen Inquiry RUN USER: INTERFACE SPEC #: [id number] PATIENT: SEBAS LUNA #[id number] (Continued)------- ----- FINAL DIAGNOSIS Bone, left mid foot, segment: Acute and chron ic osteomyelitis. GROSS AND MICROSCOPIC GROSS EXAMINATION: Received the specimen as designated above and it consists of multiple segments of b eliana tissue measuring 2.8 cm in largest dimension the aggregate. Submitted a fter decal. MICROSCOPIC EXAMINATION: Sections of the bone reveal acute and chronic inflammation and fibrosis of the marrow sp cuong. POST-OP DIAGNOSIS Left foot ulcer PRE-OP DIAGNOSIS Left foot ulcer Signed SIGNATURE ON FILE Dalton Blackwell MD 04/22/18 0811 END OF REPORT SURGICAL [id number] 10:47:00 RUN DATE: 01/26/18 [facility] *LIVE* PAGE 1 RUN TIME: 1047 Specimen Inqui ry RUN USER: INTERFACE PATIENT: SEBAS LUNA ACCT #: G [id number] LOC: [facility]SOC U #: [id number] AGE/SX: 47/M ROOM: [facility] RE01/15/18[facility] DR: Dieter Jeffery PM : 72 BED: 1 DIS: 01/21/18 STATUS: DIS IN TLOC: SPEC #: [id number] RECD: 01/22/18 STATUS: ROSA NASSAR #: [id number] ODALYS: 01/21/[address]: Dieter Jeffery PM ENTERED: 01/26/18 SP TYPE: SURG SPEC OTHR DR: Polo Antony MD, Vikas MD Sabati ni, Luis A MDORDERED: GM LEVEL 4 CODES: [id number] - BONE OF FOOT, N COPIES TO: Polo Woodall MD [address] [place] [address] Kahlil Erazo MD [address] [facility] [address] [place] [address] Dieter Jeffery DPM [address] [facility] [address] [place], [place] [address] [email or web address] Nacho Feng MD [address] [place] [address] PROCEDURES: GM LEVEL 4 (Incomplete) TISSUES: 1. BONE OF FOOT, NOS - Bone, left foot, segment FINAL DIAGNOSIS Bone, left foot, segment: Bony trabeculated with dense fibrosis, acute and chronic osteomyelitis. CONTINU ED ON NEXT PAGE RUN DATE: 01/26/18 [facility] *LIVE* PAGE 2 RUN TIME: 1047 Specimen Inquiry RUN USER: INTERFACE SPEC #: [id number] PAT IENT: SEBAS LUNA #[id number] (Continued) GROSS AND MICROSCOPIC GROSS EXAMINATION: Received in formalin labeled left foot bone is a 1.2 cm aggregate of bone fragments submitted in one cassette d ecalcification. MICROSCOPIC EXAMINATION: Sections of the left foot bone jareth cooley reveal bony trabeculae with dense fibrosis, acute and chronic inflammatio n. POST-OP DIAGNOSIS Infected left foot and ankle PRE-OP DIAGNOSIS Infected left foot and ankle Signed SIGNATURE ON FILE Timmy Gomes DO 01/26/18 1047 END OF REPORT
[2019-02-25] MEDS ORDERED: LIDOCAINE JELLY 2% 10ML URO-JET TOP ONE (16:15)
[2019-02-25 16:55] LABS: BILIRUBIN,URINE NEGATIVE (NEGATIVE); CLARITY,URINE SL CLOUDY (CLEAR); COLOR,URINE YELLOW (YELLOW); KETONES,URINE NEGATIVE (NEGATIVE); LEUKOCYTE ESTERASE ,URINE SMALL (NEGATIVE); NITRITE,URINE POSITIVE (NEGATIVE); PROTEIN,URINE DIPSTICK TRACE (NEGATIVE); URINE UROBILINOGEN 0.2 mg/dL (0.2 - 1)
[2019-02-25 17:06] LABS: BACTERIA,URINE MANY /HPF; RBC,URINE 0-5 /HPF (0-5)
== END 2019-02-25 18:57 ==
LOC: ER 15:53
DX: Z46.6 Encounter for fitting and adjustment of urinary device (principal); R33.9 Retention of urine, unspecified; N39.0 Urinary tract infection, site not specified
CPT/HCPCS: 51703; 81001; 87086; 87186; 99283